=== PATIENT | male | born 1950 | race Caucasian/White ===

== ENCOUNTER 2018-04-15 06:48 | Inpatient (IN) | payer OTHER ==
[~2018-04-15] VITALS: Ht 172.7 cm; Wt 126.6 kg
[2018-04-15] MEDS ORDERED: Acetaminophen 650 MG SUPP RECTAL ONE ×2 (07:20→07:30)
[2018-04-15 07:22] VITALS: BP 115/102
[2018-04-15] MEDS ORDERED: Morphine Sulfate 4mg/ml Inj (IV USE ONLY) IVP ONE (07:30)
[2018-04-15 07:35] VITALS: BP 112/53
[2018-04-15 08:01] LABS: ANION GAP 9 mmol/L (5-15); BLOOD UREA NITROGEN 25 mg/dL (7-18); CALCIUM 8.7 MG/DL (8.5-10.1); CARBON DIOXIDE 26 MMOL/L (21-32); CHLORIDE 102 MMOL/L (98-107); CREATININE 1.4 MG/DL (0.55-1.30); POTASSIUM 5.3 MMOL/L (3.5-5.1); SODIUM 137 MMOL/L (136-145)
[2018-04-15 08:12] LABS: ALANINE AMINOTRANSFERASE 19 U/L (12-78); ALBUMIN 3.1 G/DL (3.4-5.0); ALBUMIN/GLOBULIN RATIO 0.6 (1.0-2.7); ALKALINE PHOSPHATASE 102 U/L (46-116); ASPARTATE AMINO TRANSFERASE 30 U/L (15-37); BILIRUBIN,TOTAL 0.9 MG/DL (0.2-1.0)
[2018-04-15 08:22] LABS: HEMATOCRIT 35.9 % (42.0-52.0); HEMOGLOBIN 11.4 G/DL (14.2-18.0); MEAN CORPUSCULAR VOLUME 93 FL (80-99); PLATELET COUNT 167 K/UL (150-450); RED BLOOD COUNT 3.87 M/UL (4.70-6.10); RED CELL DISTRIBUTION WIDTH 11.9 % (11.6-14.8); WHITE BLOOD COUNT 2.4 K/UL (4.8-10.8)
--- NOTE | 2018-04-15 08:23 | Diagnostic Imaging Report ---
Indication: Chest pain Technique: One view of the chest Comparison: none Findings: The heart is borderline enlarged. There is bilateral pulmonary venous congestion and possibly some airspace edema. There is obscuration left hemidiaphragm, may indicate pleural fluid and/or parenchymal consolidation of the left lung base Impression: Cardiomegaly Pulmonary venous congestion and airspace edema Left basilar pleural fluid and/or infiltrates also possible
[2018-04-15 08:34] LABS: INR 1.2 (0.9-1.1)
[2018-04-15 09:08] VITALS: BP 105/44
--- NOTE | 2018-04-15 09:30 | Emergency Room Report ---
History of Present Illness General Chief Complaint: Dyspnea/Respdistress Present Illness HPI This is a SNF patient brought in for sob, fever. Pt. cannot give any history. Unknown temp at facility. Paperwork: COPD, DNR comfort only All: PCN, Cephalexin Hx limited due to clinical condition Allergies: Coded Allergies: ADHESIVE TAPE (Verified Allergy, Unknown, 04/15/18) CEPHALEXIN (Verified Allergy, Unknown, 04/15/18) PENICILLINS (Verified Allergy, Unknown, 04/15/18) Uncoded Allergies: PENICILLIN (Allergy, Unknown, 04/15/18) PLAS (Allergy, Unknown, 04/15/18) Nursing Documentation-PMH Hx COPD: Yes Hx Diabetes: Yes Hx Gastrointestinal Problems: Yes - Bariatric Surgery History Of Psychiatric Problem: Yes - Major depressive Review of Systems All Other Systems: limited Physical Exam Vital Signs Date Time Temp Pulse Resp B/P (MAP) Pulse Ox O2 Delivery O2 Flow Rate FiO2 04/15/18 06:50 103 26 166/88 97 Non-Rebreather 15.0 04/15/18 07:30 101.9 Sp02 EP Interpretation: reviewed, normal General Appearance: alert, moderate distress, lethargic, obese Head: normocephalic, atraumatic Eyes: bilateral eye normal inspection, bilateral eye PERRL, bilateral eye EOMI ENT: normal ENT inspection, normal pharynx, no angioedema, moist mucus membranes Neck: normal inspection, full range of motion, supple, no meningismus, no bony tend Respiratory: no wheezing, decreased breath sounds, crackles, rhonchi Cardiovascular #1: normal inspection, regular rate, rhythm, no edema Gastrointestinal: normal inspection, normal bowel sounds, non tender, soft, no mass, non-distended, overweight Genitourinary: other - diaper Musculoskeletal: normal range of motion, other - wound right lower leg; chronic venous stasis changes bilaterally Neurologic: other - awake, looks around occasionally, not responding to our questions or instructions Psychiatric: other - can't evaluate Suicide Risk Assessment: Suicidal Ideation: No Had intent to initiate attempt: No Pt's plan for suicide attempt: No Has means to complete attempt: No Reflexes: 2+ bicep (R), 2+ bicep (L), 2+ knee (R), 2+ knee (L) Skin: normal inspection, normal color, no rash, warm/dry, other - hot temp 103 Medical Decision Making Diagnostic Impression: Primary Impression: Pneumonia Additional Impression: SIRS (systemic inflammatory response syndrome) ER Course this patient has rhonchi, sounds wet, +resp distress, fever. clinically c/w pneumonia and sepsis. paperwork comfort only no iv fluids, no iv antibx. because he appeared uncomfortable BIPAP ordered which helped symptoms i decided to order IV Levaquin b/c patient properly should not be in ED but was sent here and therefore implies wanting more care. family did not call back. Chest X-Ray Diagnostic Results Chest X-Ray Diagnostic Results : Chest X-Ray Ordered: Yes # of Views/Limited/Complete: 1 View Indication: Shortness of Breath EP Interpretation: Yes Impression: Other - pulm congestion, possibly LLL infiltrate, Last Vital Signs Date Time Temp Pulse Resp B/P (MAP) Pulse Ox O2 Delivery O2 Flow Rate FiO2 04/15/18 07:35 86 31 Bi-pap 15.0 04/15/18 07:35 101.9 112/53 97 101.9 Disposition: ADMITTED INPATIENT Condition: Critical Referrals: NON PHYSICIAN (PCP) Asa Patel M.D. Apr 15, 2018 09:30
[2018-04-15 11:30] VITALS: BP 118/50
--- NOTE | 2018-04-15 15:48 | Cardiology Report ---
APPROVED REPORT EKG Measurement Heart [id number] PA [id number] [id number] Sinus tachycardia with 1st degree AV block Left anterior fascicular block Septal infarct, age undetermined Abnormal ECG
[2018-04-15 16:00] VITALS: BP 140/56
[2018-04-15] MEDS ORDERED: Lactulose 20gm/30ml UDC ORAL PRN (16:00)
[2018-04-15] MEDS ORDERED: HYDROcodone/Acetamin 10/325 tab ORAL PRN (16:00)
--- NOTE | 2018-04-15 16:53 | Infectious Diseases Prog Note ---
Assessment/Plan Assessment/Plan Full consult dictated: A) 1) pna, ? cap, ? aspiration pna/HCAP 2) sepsis, fevers, leukopenia 3) pmh noted P) 1) aztreonam, levofloxacin, vancomycin 2) check cultures, labs, chest x-ray, ua, serology 3) d/w Dr. Garcia 4) thank you Subjective Allergies: Coded Allergies: ADHESIVE TAPE (Verified Allergy, Unknown, 04/15/18) CEPHALEXIN (Verified Allergy, Unknown, 04/15/18) PENICILLINS (Verified Allergy, Unknown, 04/15/18) Uncoded Allergies: PENICILLIN (Allergy, Unknown, 04/15/18) PLAS (Allergy, Unknown, 04/15/18) Objective Vital Signs Last 24 Hour Vital Signs Date Time Temp Pulse Resp B/P (MAP) Pulse Ox O2 Delivery O2 Flow Rate FiO2 04/15/18 16:25 Nasal Cannula 2.0 04/15/18 14:46 98.1 80 19 124/61 96 Nasal Cannula 2.0 60 98.3 04/15/18 11:30 98.3 81 26 118/50 95 Nasal Cannula 2.0 98.3 04/15/18 11:15 98.9 04/15/18 11:15 98.9 04/15/18 09:08 98.9 88 21 105/44 100 Bi-pap 98.9 04/15/18 09:00 89 26 97 Facial 60 04/15/18 07:35 86 31 Bi-pap 15.0 04/15/18 07:35 101.9 86 31 112/53 97 Bi-pap 15.0 101.9 04/15/18 07:30 101.9 04/15/18 07:22 91 32 115/102 97 Bi-pap 04/15/18 07:20 103 26 Non-Rebreather 15.0 04/15/18 07:00 89 32 Bi-pap 04/15/18 07:00 89 32 98 Facial 60 04/15/18 06:50 103 26 166/88 97 Non-Rebreather 15.0 Height (Feet): 5 Height (Inches): 8.00 Weight (Pounds): 285 Laboratory Tests Test 04/15/18 07:12 04/15/18 08:13 04/15/18 09:55 Sodium Level 137 MMOL/L (136-145) Potassium Level 5.3 MMOL/L (3.5-5.1) H Chloride Level 102 MMOL/L (98-107) Carbon Dioxide Level 26 MMOL/L (21-32) Anion Gap 9 mmol/L (5-15) Blood Urea Nitrogen 25 mg/dL (7-18) H Creatinine 1.4 MG/DL (0.55-1.30) H Estimat Glomerular Filtration Rate 50.9 mL/min (>60) Glucose Level 244 MG/DL (74-106) H Lactic Acid Level 2.20 mmol/L (0.4-2.0) H 1.50 mmol/L (0.66-2.22) Calcium Level 8.7 MG/DL (8.5-10.1) Total Bilirubin 0.9 MG/DL (0.2-1.0) Aspartate Amino Transf (AST/SGOT) 30 U/L (15-37) Alanine Aminotransferase (ALT/SGPT) 19 U/L (12-78) Alkaline Phosphatase 102 U/L (46-116) Pro-B-Type Natriuretic Peptide 965 pg/mL (0-125) H Total Protein 8.3 G/DL (6.4-8.2) H Albumin 3.1 G/DL (3.4-5.0) L Globulin 5.2 g/dL Albumin/Globulin Ratio 0.6 (1.0-2.7) L White Blood Count 2.4 K/UL (4.8-10.8) L Red Blood Count 3.87 M/UL (4.70-6.10) L Hemoglobin 11.4 G/DL (14.2-18.0) L Hematocrit 35.9 % (42.0-52.0) L Mean Corpuscular Volume 93 FL (80-99) Mean Corpuscular Hemoglobin 29.6 PG (27.0-31.0) Mean Corpuscular Hemoglobin Concent 31.9 G/DL (32.0-36.0) L Red Cell Distribution Width 11.9 % (11.6-14.8) Platelet Count 167 K/UL (150-450) Mean Platelet Volume 8.1 FL (6.5-10.1) Neutrophils (%) (Auto) % (45.0-75.0) Lymphocytes (%) (Auto) % (20.0-45.0) Monocytes (%) (Auto) % (1.0-10.0) Eosinophils (%) (Auto) % (0.0-3.0) Basophils (%) (Auto) % (0.0-2.0) Differential Total Cells Counted 100 Neutrophils % (Manual) 66 % (45-75) Lymphocytes % (Manual) 9 % (20-45) L Monocytes % (Manual) 7 % (1-10) Eosinophils % (Manual) 0 % (0-3) Basophils % (Manual) 1 % (0-2) Metamyelocytes % 2 % (0-0) H Band Neutrophils 15 % (0-8) H Platelet Estimate Adequate Platelet Morphology Normal Red Blood Cell Morphology Normal Prothrombin Time 12.1 SEC (9.30-11.50) H Prothromb Time International Ratio 1.2 (0.9-1.1) H Current Medications Medications (Trade) Dose Ordered Sig/Tessa Route PRN Reason Start Time Stop Time Status Last Admin Dose Admin Acetaminophen/ Hydrocodone Bitart ([place] 10/325) 1 tab Q8H PRN ORAL For Pain 04/15/18 16:00 04/22/18 15:59 Albuterol/ Ipratropium (Albuterol/ Ipratropium) 3 ml Q6HRT HHN 04/15/18 19:00 04/20/18 18:59 Aspirin (ASA) 81 mg DAILY NG 04/16/18 09:00 05/16/18 08:59 Citalopram Hydrobromide (celeXA) 40 mg DAILY ORAL 04/16/18 09:00 05/16/18 08:59 Clopidogrel Bisulfate (Plavix) 75 mg DAILY ORAL 04/16/18 09:00 05/16/18 08:59 Cyanocobalamin (Vitamin B-12) 2,500 mcg DAILY ORAL 04/16/18 09:00 05/16/18 08:59 Dextrose (Dextrose 50%) 25 ml STAT PRN IV Hypoglycemia 04/15/18 16:15 05/15/18 16:14 Dextrose (Dextrose 50%) 50 ml STAT PRN IV Hypoglycemia 04/15/18 16:15 05/15/18 16:14 Furosemide (Lasix) 20 mg EVERY 12 HOURS IV 04/15/18 21:00 05/15/18 20:59 Insulin Aspart (NovoLOG) BEFORE MEALS AND HS SUBQ 04/15/18 16:30 05/15/18 16:29 Lactulose (Cephulac) 30 gm Q6H PRN ORAL Constipation 04/15/18 16:00 05/15/18 15:59 Oxybutynin Chloride (Ditropan) 10 mg DAILY ORAL 04/16/18 09:00 05/16/18 08:59 Annamarie Wells MD Apr 15, 2018 16:53
[2018-04-15] MEDS: NovoLOG Insulin Flexpen SUBQ SCH ×2 (17:34→22:09)
[2018-04-15] MEDS: Albuterol/Ipratropium 3ml neb HHN SCH (19:30)
[2018-04-15 20:00] VITALS: BP 144/79
[2018-04-15 21:30] LABS: APPEARANCE,URINE CLEAR; BILIRUBIN, URINE NEGATIVE (NEGATIVE); GLUCOSE, URINE (UA) 2+ (NEGATIVE); KETONES,URINE 1+ (NEGATIVE); LEUKOCYTE ESTERASE ,URINE 1+ (NEGATIVE); NITRITE,URINE NEGATIVE (NEGATIVE); PH,URINE 5 (4.5-8.0); PROTEIN,URINE 3+ (NEGATIVE); UROBILINOGEN,URINE NORMAL MG/DL (0.0-1.0)
[2018-04-15 21:33] LABS: COLOR,URINE YELLOW
[2018-04-15] MEDS: Atorvastatin 20mg tab ORAL SCH (22:06)
[2018-04-15] MEDS: Aztreonam Inj 1 GM in D5W 55 ML IVPB SCH (22:06)
[2018-04-15] MEDS: metroNIDAZOLE 500mg tab ORAL SCH (22:07)
[2018-04-15] MEDS: Vancomycin 1gm/D5W 275ml IVPB SCH ×2 (22:48)
[2018-04-16] VITALS: BP 122/49
--- NOTE | 2018-04-16 | History and Physical Report ---
DATE OF ADMISSION: 04/15/2018 CHIEF COMPLAINT: Short of breath. HISTORY OF PRESENT ILLNESS: The patient is a senior living resident who came to the hospital by paramedics because of shortness of breath. He states that he was short of breath all night and has been coughing. He has a history of COPD and had high fever and pneumonia was identified in the emergency department. He was in respiratory distress when he arrived and was on BiPAP for a time but improved and is now on nasal oxygen. He still feels short of breath however but is not in distress. PAST MEDICAL HISTORY: COPD, past cigarette smoker, multiple sclerosis, bariatric surgery, depression, multiple falls, diabetes, morbid obesity. ALLERGIES: Adhesive tape, penicillin, and cephalexin. SOCIAL HISTORY: He was living at home with his but fell and was hospitalized last month with multiple contusions and lacerations. She was discharged to the nursing facility where he is residing when he came here. He no longer smokes. He does not drink excessively or use drugs. REVIEW OF SYSTEMS: Otherwise unremarkable. Despite his MS, he is able to get up and around with difficulty. He is able to eat a normal diet. He is unaware of any heart condition. PHYSICAL EXAMINATION: GENERAL: The patient is morbidly obese. VITAL SIGNS: Temperature was 101.9, respiration rate as high as 32 but now down to 19 and pulse is high as 103, now down to 80. Blood pressure is normal. SKIN: Hot and dry. HEENT: Head is normocephalic. NECK: No jugular vein distention. CHEST: Rales on the left base and rhonchi bilateral. CARDIAC: Rhythm is regular. ABDOMEN: Obese, soft, and nontender. Surgical scar is healed. No liver or spleen enlargement. EXTREMITIES: Chronic stasis changes. No clubbing or cyanosis. A 1+ edema noted. LABORATORY AND DIAGNOSTIC DATA: White count is low at 2400, hemoglobin 11.4, lymphopenia and marked left shift with bands and metamyelocytes. Chemistry shows elevated lactic acid which improved to normal. Potassium slightly high at 5.3, BUN 25, creatinine 1.4, blood sugar 244. Natriuretic peptide 965. Total protein 8.3. Albumin 3.1. Urinalysis is pending. IMPRESSIONS: 1. Acute respiratory failure. 2. Pneumonia with sepsis. 3. COPD. 4. Multiple sclerosis. 5. DNR status. 6. Diabetes. 7. Morbid obesity. 8. Marked leukopenia. 9. Chronic kidney disease stage 3. 10. Hyperproteinemia. 11. Probable diastolic heart failure. PLAN: 1. The patient will be given antibiotics. 2. Infectious Disease insurance healthcare consultant has been called in view of his multiple allergies and the medical facility acquired infection. 3. We will add Lasix and get an echocardiogram. 4. Breathing treatments were ordered. 5. We will get protein electrophoresis. Tyshawn Garcia M.D. DR: Laura JOB#: [id number] CC: Annamarie Wells M.D.; Fax#: [phone] TYSHAWN GARCIA M.D. ; FAX#: [phone]
--- NOTE | 2018-04-16 00:30 | Consultation ---
DATE OF CONSULTATION: 04/15/2018 INFECTIOUS DISEASE CONSULTATION CONSULTING PHYSICIAN: Annamarie Wells M.D. ATTENDING PHYSICIAN: Marcus Garcia M.D. REFERRING PHYSICIAN: Marcus Garcia M.D. REASON FOR CONSULTATION: Possible sepsis, fevers, leukopenia, and pneumonia. CHIEF COMPLAINT: The patient's chief complaint coming into the hospital is pneumonia. HISTORY OF PRESENT ILLNESS: This is a 67-year-old male, who comes into [facility] with what looks like congestion and shortness of breath. The patient has history of multiple medical problems. He also came in with fevers of 101.9 in addition to shortness of breath. In discussion with the patient, nursing staff, he does choke. The patient on chest x-ray has what looks like pneumonia on the left. He also has acute kidney injury. The patient is leukopenic and certainly could be septic. Infectious Diseases consultation is requested. The patient has allergies to cephalosporins and penicillin. The patient was placed on vancomycin and aztreonam for MRSA and Gram-negative coverage and in addition, he was placed on Levaquin and Flagyl because of the possible atypical and aspiration pneumonia. The patient's cultures and serology have been ordered. Case was discussed with Dr. Garcia. Case was discussed the patient. MAR was noted. Orders were noted. Notes were reviewed. REVIEW OF SYSTEMS: The patient's chief complaint is he came in with fevers, cough, congestion, and shortness of breath. He came in with fever and chills.HEAD AND NECK: No head pain, neck pain. No neck stiffness. CARDIAC: No chest pain. GASTROINTESTINAL: No nausea, vomiting, or diarrhea. GENITOURINARY: No dysuria or frequency. No Michael. PULMONARY: Mild cough and congestion. SKIN: No rash or itching. EXTREMITIES: No extremity pain. NEUROLOGIC: No seizures. Generalized fatigue and weakness. He does say he chokes. No dysphagia or thrush. PAST MEDICAL HISTORY: The patient's past medical history includes history of chronic obstructive pulmonary disease, diabetes, history of depression, bariatric surgery, and depression. Other past medical history includes history of leg pain, back pain, weakness, difficulty walking, polyneuropathy, essential hypertension, type 2 diabetes, history of falls. Discussing with Dr. Garcia and nursing staff, he also has history of multiple sclerosis even I do not see this documented in the records. He also has history overactive bladder. He has history of osteoarthritis. He also has history of chronic kidney disease, rib fracture, anemia, thrombocytopenia, sleep apnea, and obesity. Again, per the records, in discussing with Dr. Garcia and nursing staff, the patient has possible history of multiple sclerosis. ER records, ER physician, it did show he has history of multiple sclerosis. ALLERGIES: Include adhesive tape, cephalexin, penicillin, and plastics. MEDICATIONS: Upon reviewing the MAR, he is on the following medications. He is on aspirin. He is on Celexa. He is on Plavix, vitamin B, oxybutynin, furosemide, albuterol, insulin, hydrocodone, lactulose, Levaquin, acetaminophen, and morphine. Antibiotic pabon, we are going to put him on aztreonam, vancomycin, Levaquin, and Flagyl. Outside medications noted and reconciliated. SOCIAL HISTORY: Negative for smoking, alcohol, or drug abuse. FAMILY HISTORY: Noncontributory. Negative for exposure to tuberculosis or cancer. PHYSICAL EXAMINATION: VITAL SIGNS: T-max 101.9, currently temperature is 98.1, pulse rate 80, respiratory rate 19, blood pressure 124/61, and saturation 96%. Respiratory rate has been as high as 32 and heart rate has been as high as 103. GENERAL: Alert and responsive, in no acute distress. HEAD AND NECK: Mild congestion noted on exam. Oral exam, no thrush. Eye exam, no icterus. Neck is supple. No JVD. Normocephalic. No facial droop. No neck stiffness. Neck is supple. No icterus or thrush. HEART: Regular. No obvious gallop or murmur ABDOMEN: Soft. Positive bowel sounds. Nontender. LUNGS: Bilateral rhonchi and rales, left greater than right. SKIN: No rash. MUSCULOSKELETAL: No effusion. Legs are without cellulitis. PERIPHERAL VASCULAR: No cyanosis or gangrene. GENITOURINARY: No Michael. No CVA tenderness. LINES: Line sites without phlebitis. NEUROLOGIC: Generalized weakness, responsive. LABORATORY AND DIAGNOSTIC DATA: Laboratory data as follows. White count 2.4, hemoglobin 11.4, and platelet count 167. Creatinine 1.4. LFTs noted. Cultures are pending. Chest x-ray was noted and reviewed and showed a left-sided infiltrate versus fluid is noted and reviewed. Cultures are pending as discussed. ASSESSMENT AND PLAN: 1. This is the patient who has likely sepsis with fevers of 101.9, tachycardia, tachypnea, leukopenia, and fevers. Most likely, source of the sepsis is pneumonia. Certainly could have community-acquired pneumonia, but because of his choking episodes and he resides in [facility], must consider healthcare-acquired pneumonia and aspiration pneumonia. At this time, we will place the patient on broad-spectrum antibiotics including vancomycin, cefepime, Flagyl, and also Levaquin. The patient is septic with also leukopenia in addition to pneumonia. Continue antibiotics of vancomycin, Levaquin, Flagyl, and Levaquin and check serology for Legionella, mycoplasma. Check sputum culture. Check blood cultures. Check UA and C and S and check laboratories. The patient is allergic to penicillin and cephalexin, which limits our antibiotic choices. Case was discussed with Dr. Garcia. 2. Per the records, history of multiple sclerosis. 3. The patient a DNR. 4. The patient has history of multiple contusions and falls. 5. Diabetes. 6. Hypertension. 7. Peripheral neuropathy. 8. History of diabetic foot ulcer. 9. Skin care protocol. 10. Chronic obstructive pulmonary disease. 11. History of anemia and thrombocytopenia. 12. Leukopenia. 13. History of fractures. 14. Sleep apnea. 15. Obesity. 16. Osteoarthritis. 17. Chronic back pain. 18. Hypertension, diabetes. Treatment per primary. 19. Chronic kidney disease. 20. Past medical history as noted. 21. Allergies to adhesive tape, cephalexin, penicillin, and plastics. 22. Social history is negative. 23. Family history is noncontributory. 24. MAR was noted. 25. Case was discussed with RN. 26. Continue treatment per primary consultants. 27. The patient has history of bariatric surgery and also major depression. Annamarie Wells M.D. DR: CORNELL JOB#: [id number] CC:
[2018-04-16] MEDS: Albuterol/Ipratropium 3ml neb HHN SCH ×4 (01:16→20:10)
[2018-04-16 04:00] VITALS: BP 129/52
[2018-04-16] MEDS: metroNIDAZOLE 500mg tab ORAL SCH ×3 (05:42→22:19)
[2018-04-16] MEDS: Aztreonam Inj 1 GM in D5W 55 ML IVPB SCH ×3 (05:43→22:19)
[2018-04-16] MEDS: metFORMIN 500mg tab ORAL SCH ×3 (06:28→16:30)
[2018-04-16] MEDS: NovoLOG Insulin Flexpen SUBQ SCH ×4 (06:29→20:39)
--- NOTE | 2018-04-16 06:45 | Consultation ---
DATE OF CONSULTATION: 04/15/2018 ADDENDUM: The patient also had elevated lactic acid level which could again be suggestive of the patient being septic. Continue broad-spectrum antibiotics including vancomycin, Levaquin, and Flagyl. Levaquin to cover pneumonia and sepsis. Check cultures. Multiple orders were entered and again case was discussed with Dr. Garcia. Annamarie Wells M.D. DR: Alirio JOB#: [id number] CC:
[2018-04-16] MEDS ORDERED: CELEXA20 MG ORAL (07:43)
[2018-04-16] MEDS ORDERED: OXYCODON-ACETA1 EAC2 ORAL (07:43)
[2018-04-16] MEDS ORDERED: DUONEB 0.5-3(2.53 ML HHN (07:43)
--- NOTE | 2018-04-16 07:45 | Pulmonology Progress Note ---
Assessment/Plan Assessment/Plan does not want to continue treatment signed up with hospice dc to snf comfort care only understands and accepts terminal prognosis Subjective Respiratory: Reports: productive cough, shortness of breath Allergies: Coded Allergies: ADHESIVE TAPE (Verified Allergy, Unknown, 04/15/18) CEPHALEXIN (Verified Allergy, Unknown, 04/15/18) PENICILLINS (Verified Allergy, Unknown, 04/15/18) Uncoded Allergies: PENICILLIN (Allergy, Unknown, 04/15/18) PLAS (Allergy, Unknown, 04/15/18) Objective Last 24 Hour Vital Signs Date Time Temp Pulse Resp B/P (MAP) Pulse Ox O2 Delivery O2 Flow Rate FiO2 04/16/18 07:40 73 20 98 Nasal Cannula 2.0 28 04/16/18 07:19 Nasal Cannula 2.0 28 04/16/18 07:19 69 20 97 Nasal Cannula 2.0 28 04/16/18 07:18 97 Nasal Cannula 2.0 28 04/16/18 04:00 98.2 78 20 129/52 (77) 94 98.2 04/16/18 01:26 81 18 98 Nasal Cannula 2.0 28 04/16/18 01:16 77 18 97 Nasal Cannula 2.0 28 04/16/18 00:00 100.4 83 20 122/49 (73) 92 100.4 04/15/18 23:07 100.4 04/15/18 22:08 102.0 04/15/18 21:00 Nasal Cannula 2.0 04/15/18 20:00 102.0 87 20 144/79 (100) 93 102.0 04/15/18 19:40 83 20 96 Nasal Cannula 2.0 28 04/15/18 19:30 81 20 93 Nasal Cannula 2.0 28 04/15/18 19:30 93 Nasal Cannula 2.0 28 04/15/18 19:30 Nasal Cannula 2.0 28 04/15/18 18:05 101.7 04/15/18 16:25 Nasal Cannula 2.0 04/15/18 16:00 97.9 83 21 140/56 (84) 97 97.9 04/15/18 14:46 98.1 80 19 124/61 96 Nasal Cannula 2.0 60 98.3 04/15/18 11:30 98.3 81 26 118/50 95 Nasal Cannula 2.0 98.3 04/15/18 11:15 98.9 04/15/18 11:15 98.9 04/15/18 09:08 98.9 88 21 105/44 100 Bi-pap 98.9 04/15/18 09:00 89 26 97 Facial 60 Intake and Output 04/15/18 04/16/18 19:00 07:00 Intake Total 390 ml 672.416 ml Balance 390 ml 672.416 ml Intake Oral 240 ml 250 ml IV Total 150 ml 422.416 ml # Voids 1 2 General Appearance: no acute distress Laboratory Tests 04/15/18 08:13: White Blood Count 2.4L, Red Blood Count 3.87L, Hemoglobin 11.4L, Hematocrit 35.9L, Mean Corpuscular Volume 93, Mean Corpuscular Hemoglobin 29.6, Mean Corpuscular Hemoglobin Concent 31.9L, Red Cell Distribution Width 11.9, Platelet Count 167, Mean Platelet Volume 8.1, Neutrophils (%) (Auto) , Lymphocytes (%) (Auto) , Monocytes (%) (Auto) , Eosinophils (%) (Auto) , Basophils (%) (Auto) , Differential Total Cells Counted 100, Neutrophils % ( Manual) 66, Lymphocytes % (Manual) 9L, Monocytes % (Manual) 7, Eosinophils % ( Manual) 0, Basophils % (Manual) 1, Metamyelocytes % 2H, Band Neutrophils 15H, Platelet Estimate Adequate, Platelet Morphology Normal, Red Blood Cell Morphology Normal, Prothrombin Time 12.1H, Prothromb Time International Ratio 1.2H, Total Protein (PEP) [Pending], Albumin (PEP) [Pending], Globulin (PEP) [ Pending], Albumin/Globulin Ratio [Pending], [id number] [Pending], Alpha-2 -Globulins [Pending], Beta Globulins [Pending], Beta Gamma Globulin [Pending], PEP Abnormal Protein Bands [Pending], Protein Electrophoresis Interpret [Pending ], Mycoplasma pneumoniae IgG Antibody [Pending], Mycoplasma pneumoniae IgM Ab Titer [Pending] 04/15/18 09:55: Lactic Acid Level 1.50 04/15/18 20:40: Urine Color Yellow, Urine Appearance Clear, Urine pH 5, Urine Specific [place] 1.020, Urine Protein 3+H, Urine Glucose (UA) 2+H, Urine Ketones 1+H, Urine Occult Blood 1+H, Urine Nitrite Negative, Urine Bilirubin Negative, Urine Urobilinogen Normal, Urine Leukocyte Esterase 1+H, Urine RBC 0-2H, Urine WBC 2-4 , Urine Squamous Epithelial Cells None, Urine Amorphous Sediment FewH, Urine Bacteria Few, Urine Legionella Antigen [Pending] Current Medications Medications (Trade) Dose Ordered Sig/Tessa Route PRN Reason Start Time Stop Time Status Last Admin Dose Admin Acetaminophen (Tylenol) 650 mg Q4H PRN ORAL Mild Pain/Temp > 100.5 04/15/18 18:00 05/15/18 17:59 04/15/18 22:08 Acetaminophen/ Hydrocodone Bitart ([place] 10/325) 1 tab Q8H PRN ORAL PAIN 4-10 04/15/18 18:00 04/22/18 15:59 Albuterol/ Ipratropium (Albuterol/ Ipratropium) 3 ml Q6HRT HHN 04/15/18 19:00 04/20/18 18:59 04/16/18 07:18 Aspirin (ASA) 81 mg DAILY NG 04/16/18 09:00 05/16/18 08:59 Atorvastatin Calcium (Lipitor) 40 mg QHS ORAL 04/15/18 21:00 05/15/18 20:59 04/15/18 22:06 Aztreonam 1 gm/ Dextrose 55 ml @ 110 mls/hr Q8HR IVPB 04/15/18 22:00 04/22/18 21:59 04/16/18 05:43 Citalopram Hydrobromide (celeXA) 40 mg DAILY ORAL 04/16/18 09:00 05/16/18 08:59 Clopidogrel Bisulfate (Plavix) 75 mg DAILY ORAL 04/16/18 09:00 05/16/18 08:59 Cyanocobalamin (Vitamin B-12) 2,500 mcg DAILY ORAL 04/16/18 09:00 05/16/18 08:59 Dextrose (Dextrose 50%) 25 ml STAT PRN IV Hypoglycemia 04/15/18 16:15 05/15/18 16:14 Dextrose (Dextrose 50%) 50 ml STAT PRN IV Hypoglycemia 04/15/18 16:15 05/15/18 16:14 Furosemide (Lasix) 20 mg EVERY 12 HOURS IV 04/15/18 21:00 05/15/18 20:59 04/15/18 22:07 Insulin Aspart (NovoLOG) BEFORE MEALS AND HS SUBQ 04/15/18 16:30 05/15/18 16:29 04/16/18 06:29 Lactulose (Cephulac) 30 gm Q6H PRN ORAL Constipation 04/15/18 16:00 05/15/18 15:59 Levofloxacin (Levaquin) 500 mg Q24H ORAL 04/16/18 17:00 04/23/18 16:59 Losartan Potassium (Cozaar) 25 mg DAILY ORAL 04/16/18 09:00 05/16/18 08:59 Metformin HCl (Glucophage) 500 mg TIAC ORAL 04/16/18 06:30 05/16/18 06:29 04/16/18 06:28 Metronidazole (Flagyl) 500 mg EVERY 8 HOURS ORAL 04/15/18 22:00 04/22/18 21:59 04/16/18 05:42 Oxybutynin Chloride (Ditropan) 10 mg DAILY ORAL 04/16/18 09:00 05/16/18 08:59 Vancomycin HCl (Vanco rx to dose) 1 ea DAILY PRN MISC Per rx protocol 04/15/18 17:00 05/15/18 16:59 Vancomycin HCl 1 gm/Dextrose 275 ml @ 183.708 mls/hr Q12H IVPB 04/15/18 21:00 04/20/18 20:59 04/15/18 22:48 Marcus Garcia MD Apr 16, 2018 07:45
[2018-04-16 07:57] LABS: HEMATOCRIT 32.3 % (42.0-52.0); HEMOGLOBIN 10.6 G/DL (14.2-18.0); MEAN CORPUSCULAR VOLUME 92 FL (80-99); PLATELET COUNT 141 K/UL (150-450); RED BLOOD COUNT 3.51 M/UL (4.70-6.10); RED CELL DISTRIBUTION WIDTH 11.8 % (11.6-14.8); WHITE BLOOD COUNT 7.6 K/UL (4.8-10.8)
[2018-04-16 08:00] VITALS: BP 151/69
[2018-04-16 08:35] LABS: ALANINE AMINOTRANSFERASE 15 U/L (12-78); ALBUMIN 2.6 G/DL (3.4-5.0); ALBUMIN/GLOBULIN RATIO 0.5 (1.0-2.7); ALKALINE PHOSPHATASE 72 U/L (46-116); ANION GAP 10 mmol/L (5-15); ASPARTATE AMINO TRANSFERASE 15 U/L (15-37); BILIRUBIN,TOTAL 0.7 MG/DL (0.2-1.0); BLOOD UREA NITROGEN 39 mg/dL (7-18); CALCIUM 8.8 MG/DL (8.5-10.1); CARBON DIOXIDE 27 MMOL/L (21-32); CHLORIDE 99 MMOL/L (98-107); CHOLESTEROL 72 MG/DL (< 200); CREATININE 1.8 MG/DL (0.55-1.30); HDL CHOLESTEROL 40 MG/DL (40-60); POTASSIUM 4.2 MMOL/L (3.5-5.1); SODIUM 135 MMOL/L (136-145); TRIGLYCERIDES 50 MG/DL (30-150)
[2018-04-16] MEDS: Citalopram Hydrobromide 10mg Tab ORAL SCH (09:01)
[2018-04-16] MEDS: Losartan 25mg tab ORAL SCH (09:01)
[2018-04-16] MEDS: Vancomycin 1gm/D5W 275ml IVPB SCH ×4 (09:01→20:39)
[2018-04-16] MEDS: Aspirin Baby 81mg NG SCH (09:02)
[2018-04-16] MEDS: Vitamin B-12 500mcg tab ORAL SCH (09:02)
[2018-04-16] MEDS: Oxybutynin 5mg tab ORAL SCH (09:02)
[2018-04-16] MEDS: HYDROcodone/Acetamin 10/325 tab ORAL PRN ×2 (09:12→17:06)
--- NOTE | 2018-04-16 10:09 | Diagnostic Imaging Report ---
Indication: Shortness of breath Technique: One view of the chest Comparison: 04/15/2018 Findings: There is diffuse bilateral interstitial congestion airspace edema which appears minimally improved. Left-sided pleural fluid appears unchanged. The heart remains enlarged. Impression: Minimally improved airspace edema and interstitial congestion, over one day Stable left pleural effusion
[2018-04-16 12:00] VITALS: BP 140/61
[2018-04-16 16:00] VITALS: BP 121/57
[2018-04-16] MEDS: Levofloxacin 500mg tab ORAL SCH (16:47)
[2018-04-16 20:00] VITALS: BP 142/59
[2018-04-16] MEDS: Atorvastatin 20mg tab ORAL SCH (20:39)
[2018-04-17] VITALS: BP 140/65
[2018-04-17] MEDS: HYDROcodone/Acetamin 10/325 tab ORAL PRN ×2 (01:13→11:47)
[2018-04-17] MEDS: Albuterol/Ipratropium 3ml neb HHN SCH ×4 (01:23→20:01)
[2018-04-17 04:00] VITALS: BP 138/62
[2018-04-17] MEDS: metroNIDAZOLE 500mg tab ORAL SCH ×3 (06:04→21:11)
[2018-04-17] MEDS: metFORMIN 500mg tab ORAL SCH ×3 (06:04→16:30)
[2018-04-17] MEDS: Aztreonam Inj 1 GM in D5W 55 ML IVPB SCH ×3 (06:04→21:08)
[2018-04-17] MEDS: NovoLOG Insulin Flexpen SUBQ SCH ×6 (06:11→21:11)
[2018-04-17 07:15] VITALS: BP 137/58
[2018-04-17 08:19] LABS: HEMATOCRIT 33.9 % (42.0-52.0); MEAN CORPUSCULAR VOLUME 92 FL (80-99); PLATELET COUNT 180 K/UL (150-450); RED CELL DISTRIBUTION WIDTH 11.9 % (11.6-14.8); WHITE BLOOD COUNT 9.2 K/UL (4.8-10.8)
[2018-04-17] MEDS: Vitamin B-12 500mcg tab ORAL SCH (08:45)
[2018-04-17] MEDS: Losartan 25mg tab ORAL SCH (08:45)
[2018-04-17] MEDS: Aspirin Baby 81mg NG SCH (08:45)
[2018-04-17] MEDS: Citalopram Hydrobromide 10mg Tab ORAL SCH (08:45)
[2018-04-17] MEDS: Oxybutynin 5mg tab ORAL SCH (08:45)
--- NOTE | 2018-04-17 08:48 | Pulmonology Progress Note ---
Assessment/Plan Assessment/Plan 1. Acute respiratory failure. 2. Pneumonia with sepsis. 3. COPD. 4. Multiple sclerosis. 5. DNR status. 6. Diabetes. 7. Morbid obesity. 8. Marked leukopenia. 9. Chronic kidney disease stage 3. 10. Hyperproteinemia. 11. Probable diastolic heart failure. now wants to continue treatment not on hospice "I am too young to " cont abx Zofran for nausea, poor PO adjust insulin for high BS Subjective Respiratory: Reports: productive cough Gastrointestinal/Abdominal: Reports: nausea, other - poor PO Allergies: Coded Allergies: ADHESIVE TAPE (Verified Allergy, Unknown, 04/15/18) CEPHALEXIN (Verified Allergy, Unknown, 04/15/18) PENICILLINS (Verified Allergy, Unknown, 04/15/18) Uncoded Allergies: PENICILLIN (Allergy, Unknown, 04/15/18) PLAS (Allergy, Unknown, 04/15/18) Objective Last 24 Hour Vital Signs Date Time Temp Pulse Resp B/P (MAP) Pulse Ox O2 Delivery O2 Flow Rate FiO2 04/17/18 08:45 137/58 04/17/18 07:54 62 18 99 Nasal Cannula 2.0 28 04/17/18 07:44 96 Nasal Cannula 2.0 28 04/17/18 07:44 59 16 96 Nasal Cannula 2.0 28 04/17/18 07:44 Nasal Cannula 2.0 04/17/18 07:27 98.1 98.1 04/17/18 07:15 62 20 137/58 (84) 93 04/17/18 04:00 98.6 71 20 138/62 (87) 94 98.6 04/17/18 01:32 60 18 98 Nasal Cannula 2.0 28 04/17/18 01:23 60 18 95 Nasal Cannula 2.0 28 04/17/18 00:55 98.6 04/17/18 00:00 100.5 65 19 140/65 (90) 93 100.5 04/16/18 23:56 100.5 04/16/18 21:30 76 24 95 Facial 28 04/16/18 21:00 Nasal Cannula 2.0 04/16/18 20:18 70 20 99 Nasal Cannula 2.0 28 04/16/18 20:08 95 Nasal Cannula 2.0 28 04/16/18 20:08 68 20 95 Nasal Cannula 2.0 28 04/16/18 20:08 Nasal Cannula 2.0 28 04/16/18 20:00 98.8 70 21 142/59 (86) 94 98.8 04/16/18 16:00 98.2 65 20 121/57 (78) 93 98.2 04/16/18 13:20 75 20 96 Nasal Cannula 2.0 28 04/16/18 13:09 72 20 96 Nasal Cannula 2.0 28 04/16/18 12:00 98.4 73 20 140/61 (87) 95 98.4 04/16/18 09:01 151/69 04/16/18 09:00 Nasal Cannula 2.0 Intake and Output 04/16/18 04/17/18 19:00 07:00 Intake Total 810.000 ml 585.000 ml Balance 810.000 ml 585.000 ml Intake Oral 480 ml 200 ml IV Total 330.000 ml 385.000 ml # Voids 4 3 Objective morbidly obese General Appearance: no acute distress Respiratory/Chest: crackles/rales, rhonchi Cardiovascular: normal rate Abdomen: soft, non tender Microbiology Date/Time Source Procedure Growth Status 04/15/18 18:00 Blood Blood Culture - Preliminary NO GROWTH AFTER 24 HOURS Resulted 04/15/18 17:45 Blood Blood Culture - Preliminary NO GROWTH AFTER 24 HOURS Resulted 04/15/18 23:00 Sputum Induced Gram Stain - Final Resulted 04/15/18 23:00 Sputum Induced Sputum Culture Pending Resulted 04/15/18 20:40 Urine,Clean Catch Urine Culture - Preliminary Mixed Gram Positive Organism Resulted 04/15/18 09:55 Rectum VRE Culture - Final NO VANCOMYCIN RESISTANT ENTEROCOCCUS ... Complete 04/15/18 09:55 Rectum - Final NO CARBAPENEM-RESISTANT ENTEROBACTERI... Complete Laboratory Tests 04/17/18 07:45: White Blood Count 9.2, Red Blood Count 3.70L, Hemoglobin 11.0L, Hematocrit 33.9L , Mean Corpuscular Volume 92, Mean Corpuscular Hemoglobin 29.8, Mean Corpuscular Hemoglobin Concent 32.5, Red Cell Distribution Width 11.9, Platelet Count 180, Mean Platelet Volume 9.0, Neutrophils (%) (Auto) , Lymphocytes (%) ( Auto) , Monocytes (%) (Auto) , Eosinophils (%) (Auto) , Basophils (%) (Auto) , Neutrophils % (Manual) [Pending], Lymphocytes % (Manual) [Pending], Platelet Estimate [Pending], Platelet Morphology [Pending], Sodium Level [Pending], Potassium Level [Pending], Chloride Level [Pending], Carbon Dioxide Level [ Pending], Blood Urea Nitrogen [Pending], Creatinine [Pending], Estimat Glomerular Filtration Rate [Pending], Glucose Level [Pending], Calcium Level [ Pending], Total Bilirubin [Pending], Aspartate Amino Transf (AST/SGOT) [Pending] , Alanine Aminotransferase (ALT/SGPT) [Pending], Alkaline Phosphatase [Pending] , Total Protein [Pending], Albumin [Pending], Globulin [Pending], Vancomycin Level Trough [Pending] Current Medications Medications (Trade) Dose Ordered Sig/Tessa Route PRN Reason Start Time Stop Time Status Last Admin Dose Admin Acetaminophen (Tylenol) 650 mg Q4H PRN ORAL Mild Pain/Temp > 100.5 04/15/18 18:00 05/15/18 17:59 04/16/18 23:56 Acetaminophen/ Hydrocodone Bitart ([place] 10/325) 1 tab Q8H PRN ORAL PAIN 4-10 04/15/18 18:00 04/22/18 15:59 04/17/18 01:13 Albuterol/ Ipratropium (Albuterol/ Ipratropium) 3 ml Q6HRT HHN 04/15/18 19:00 04/20/18 18:59 04/17/18 07:44 Aspirin (ASA) 81 mg DAILY NG 04/16/18 09:00 05/16/18 08:59 04/17/18 08:45 Atorvastatin Calcium (Lipitor) 40 mg QHS ORAL 04/15/18 21:00 05/15/18 20:59 04/16/18 20:39 Aztreonam 1 gm/ Dextrose 55 ml @ 110 mls/hr Q8HR IVPB 04/15/18 22:00 04/22/18 21:59 04/17/18 06:04 Citalopram Hydrobromide (celeXA) 40 mg DAILY ORAL 04/16/18 09:00 05/16/18 08:59 04/17/18 08:45 Clopidogrel Bisulfate (Plavix) 75 mg DAILY ORAL 04/16/18 09:00 05/16/18 08:59 04/17/18 08:45 Cyanocobalamin (Vitamin B-12) 2,500 mcg DAILY ORAL 04/16/18 09:00 05/16/18 08:59 04/17/18 08:45 Dextrose (Dextrose 50%) 25 ml STAT PRN IV Hypoglycemia 04/15/18 16:15 05/15/18 16:14 Dextrose (Dextrose 50%) 50 ml STAT PRN IV Hypoglycemia 04/15/18 16:15 05/15/18 16:14 Furosemide (Lasix) 20 mg EVERY 12 HOURS IV 04/15/18 21:00 05/15/18 20:59 04/17/18 08:46 Insulin Aspart (NovoLOG) BEFORE MEALS AND HS SUBQ 04/15/18 16:30 05/15/18 16:29 04/17/18 06:11 Lactulose (Cephulac) 30 gm Q6H PRN ORAL Constipation 04/15/18 16:00 05/15/18 15:59 Levofloxacin (Levaquin) 500 mg Q24H ORAL 04/16/18 17:00 04/23/18 16:59 04/16/18 16:47 Losartan Potassium (Cozaar) 25 mg DAILY ORAL 04/16/18 09:00 05/16/18 08:59 04/17/18 08:45 Metformin HCl (Glucophage) 500 mg TIAC ORAL 04/16/18 06:30 05/16/18 06:29 04/17/18 06:04 Metronidazole (Flagyl) 500 mg EVERY 8 HOURS ORAL 04/15/18 22:00 04/22/18 21:59 04/17/18 06:04 Oxybutynin Chloride (Ditropan) 10 mg DAILY ORAL 04/16/18 09:00 05/16/18 08:59 04/17/18 08:45 Vancomycin HCl (Vanco rx to dose) 1 ea DAILY PRN MISC Per rx protocol 04/15/18 17:00 05/15/18 16:59 Vancomycin HCl 1 gm/Dextrose 275 ml @ 183.708 mls/hr Q12H IVPB 04/15/18 21:00 04/20/18 20:59 04/16/18 20:39 Marcus Garcia MD Apr 17, 2018 08:48
[2018-04-17 09:39] LABS: ALANINE AMINOTRANSFERASE 18 U/L (12-78); ALBUMIN 2.5 G/DL (3.4-5.0); ALBUMIN/GLOBULIN RATIO 0.5 (1.0-2.7); ALKALINE PHOSPHATASE 74 U/L (46-116); ANION GAP 8 mmol/L (5-15); ASPARTATE AMINO TRANSFERASE 12 U/L (15-37); BILIRUBIN,TOTAL 0.6 MG/DL (0.2-1.0); BLOOD UREA NITROGEN 44 mg/dL (7-18); CALCIUM 8.7 MG/DL (8.5-10.1); CARBON DIOXIDE 27 MMOL/L (21-32); CHLORIDE 98 MMOL/L (98-107); CREATININE 1.5 MG/DL (0.55-1.30); POTASSIUM 3.7 MMOL/L (3.5-5.1); SODIUM 133 MMOL/L (136-145)
[2018-04-17] MEDS: Vancomycin 1gm/D5W 275ml IVPB SCH ×4 (10:38→21:07)
[2018-04-17 11:34] VITALS: BP 140/69
--- NOTE | 2018-04-17 12:46 | Cardiology Report ---
APPROVED REPORT EKG Measurement Heart [id number] Sinus rhythm with 1st degree AV block Left anterior fascicular block Abnormal ECG
[2018-04-17 16:00] VITALS: BP 117/47
[2018-04-17] MEDS: Levofloxacin 500mg tab ORAL SCH (17:19)
--- NOTE | 2018-04-17 17:21 | Infectious Diseases Prog Note ---
Assessment/Plan Assessment/Plan ASSESSMENT AND PLAN: 1. sepsis, pna, fevers, leukopenia, sirs, elevated lactic acid - aztreonam, vancomycin, flagyl, levofloxacin - f/u on labs, sputum culture and chest x-ray 2. Per the records, history of multiple sclerosis. 3. The patient is DNR. 4. The patient has history of multiple contusions and falls. 5. Diabetes. 6. Hypertension. 7. Peripheral neuropathy. 8. History of diabetic foot ulcer. 9. Skin care protocol. 10. Chronic obstructive pulmonary disease. 11. History of anemia and thrombocytopenia. 12. Leukopenia. 13. History of fractures. 14. Sleep apnea. 15. Obesity. 16. Osteoarthritis. 17. Chronic back pain. 18. Hypertension, diabetes. Treatment per primary. 19. Chronic kidney disease. 20. Past medical history as noted. 21. Allergies to adhesive tape, cephalexin, penicillin, and plastics. 22. Social history is negative. 23. Family history is noncontributory. 24. MAR was noted. 25. Case was discussed with RN. 26. Continue treatment per primary consultants. 27. The patient has history of bariatric surgery and also major depression. Subjective Constitutional: Reports: fever, fatigue, other - more alert HEENT: Reports: congestion - less Respiratory: Reports: shortness of breath - les Cardiovascular: Denies: chest pain Gastrointestinal/Abdominal: Denies: nausea, vomiting, diarrhea Genitourinary: Reports: other - no pascual Neurologic: Denies: headache Psychiatric: Denies: depression Skin: Denies: rash Hematologic: Denies: bleeding Musculoskeletal: Denies: pain Allergies: Coded Allergies: ADHESIVE TAPE (Verified Allergy, Unknown, 04/15/18) CEPHALEXIN (Verified Allergy, Unknown, 04/15/18) PENICILLINS (Verified Allergy, Unknown, 04/15/18) Uncoded Allergies: PENICILLIN (Allergy, Unknown, 04/15/18) PLAS (Allergy, Unknown, 04/15/18) Objective Vital Signs Last 24 Hour Vital Signs Date Time Temp Pulse Resp B/P (MAP) Pulse Ox O2 Delivery O2 Flow Rate FiO2 04/17/18 16:00 98.2 72 20 117/47 (70) 96 98.2 04/17/18 13:22 71 16 99 Nasal Cannula 2.0 28 04/17/18 13:12 69 14 96 Nasal Cannula 2.0 28 04/17/18 11:34 98.1 68 18 140/69 (92) 95 98.1 04/17/18 09:00 Nasal Cannula 2.0 04/17/18 08:45 137/58 04/17/18 07:54 62 18 99 Nasal Cannula 2.0 28 04/17/18 07:44 96 Nasal Cannula 2.0 28 04/17/18 07:44 59 16 96 Nasal Cannula 2.0 28 04/17/18 07:44 Nasal Cannula 2.0 28 04/17/18 07:27 98.1 98.1 04/17/18 07:15 62 20 137/58 (84) 93 04/17/18 04:00 98.6 71 20 138/62 (87) 94 98.6 04/17/18 01:32 60 18 98 Nasal Cannula 2.0 28 04/17/18 01:23 60 18 95 Nasal Cannula 2.0 28 04/17/18 00:55 98.6 04/17/18 00:00 100.5 65 19 140/65 (90) 93 100.5 04/16/18 23:56 100.5 04/16/18 21:30 76 24 95 Facial 28 04/16/18 21:00 Nasal Cannula 2.0 04/16/18 20:18 70 20 99 Nasal Cannula 2.0 28 04/16/18 20:08 95 Nasal Cannula 2.0 28 04/16/18 20:08 68 20 95 Nasal Cannula 2.0 28 04/16/18 20:08 Nasal Cannula 2.0 28 04/16/18 20:00 98.8 70 21 142/59 (86) 94 98.8 Height (Feet): 5 Height (Inches): 8.00 Weight (Pounds): 285 General Appearance: no acute distress HEENT: normocephalic, atraumatic, anicteric, mucous membranes moist Respiratory/Chest: crackles/rales, rhonchi - bilaterally Cardiovascular: normal rate, regular rhythm, no gallop/murmur, no JVD Abdomen: normal bowel sounds, soft, non tender, no organomegaly, non distended Genitourinary: other - no pascual Extremities: no cyanosis Skin: no rash Neurologic/Psychiatric: drafter refrigeration II-XII grossly normal, alert, responsive Lymphatic: no neck adenopathy Musculoskeletal: no effusion Objective Chest x-ray - 04/16 - Findings: There is diffuse bilateral interstitial congestion airspace edema which appears minimally improved. Left-sided pleural fluid appears unchanged. The heart remains enlarged. Impression: Minimally improved airspace edema and interstitial congestion, over one day Stable left pleural effusion Microbiology Date/Time Source Procedure Growth Status 04/15/18 18:00 Blood Blood Culture - Preliminary NO GROWTH AFTER 24 HOURS Resulted 04/15/18 17:45 Blood Blood Culture - Preliminary NO GROWTH AFTER 24 HOURS Resulted 04/15/18 23:00 Sputum Induced Gram Stain - Final Resulted 04/15/18 23:00 Sputum Induced Sputum Culture Pending Resulted 04/15/18 09:55 Nasal Nares MRSA Culture - Final NO METHICILLIN RESISTANT STAPH AUREUS... Complete 04/15/18 20:40 Urine,Clean Catch Urine Culture - Preliminary Mixed Gram Positive Organism Resulted 04/15/18 09:55 Rectum VRE Culture - Final NO VANCOMYCIN RESISTANT ENTEROCOCCUS ... Complete 04/15/18 09:55 Rectum - Final NO CARBAPENEM-RESISTANT ENTEROBACTERI... Complete Laboratory Tests Test 04/17/18 07:45 White Blood Count 9.2 K/UL (4.8-10.8) Red Blood Count 3.70 M/UL (4.70-6.10) L Hemoglobin 11.0 G/DL (14.2-18.0) L Hematocrit 33.9 % (42.0-52.0) L Mean Corpuscular Volume 92 FL (80-99) Mean Corpuscular Hemoglobin 29.8 PG (27.0-31.0) Mean Corpuscular Hemoglobin Concent 32.5 G/DL (32.0-36.0) Red Cell Distribution Width 11.9 % (11.6-14.8) Platelet Count 180 K/UL (150-450) Mean Platelet Volume 9.0 FL (6.5-10.1) Neutrophils (%) (Auto) % (45.0-75.0) Lymphocytes (%) (Auto) % (20.0-45.0) Monocytes (%) (Auto) % (1.0-10.0) Eosinophils (%) (Auto) % (0.0-3.0) Basophils (%) (Auto) % (0.0-2.0) Differential Total Cells Counted 100 Neutrophils % (Manual) 80 % (45-75) H Lymphocytes % (Manual) 2 % (20-45) L Monocytes % (Manual) 7 % (1-10) Eosinophils % (Manual) 0 % (0-3) Basophils % (Manual) 0 % (0-2) Band Neutrophils 11 % (0-8) H Platelet Estimate Adequate Platelet Morphology Normal Red Blood Cell Morphology Normal Sodium Level 133 MMOL/L (136-145) L Potassium Level 3.7 MMOL/L (3.5-5.1) Chloride Level 98 MMOL/L (98-107) Carbon Dioxide Level 27 MMOL/L (21-32) Anion Gap 8 mmol/L (5-15) Blood Urea Nitrogen 44 mg/dL (7-18) H Creatinine 1.5 MG/DL (0.55-1.30) H Estimat Glomerular Filtration Rate 47.0 mL/min (>60) Glucose Level 285 MG/DL (74-106) H Calcium Level 8.7 MG/DL (8.5-10.1) Total Bilirubin 0.6 MG/DL (0.2-1.0) Aspartate Amino Transf (AST/SGOT) 12 U/L (15-37) L Alanine Aminotransferase (ALT/SGPT) 18 U/L (12-78) Alkaline Phosphatase 74 U/L (46-116) Total Protein 7.7 G/DL (6.4-8.2) Albumin 2.5 G/DL (3.4-5.0) L Globulin 5.2 g/dL Albumin/Globulin Ratio 0.5 (1.0-2.7) L Vancomycin Level Trough 16.1 ug/mL (5.0-12.0) H Current Medications Medications (Trade) Dose Ordered Sig/Tessa Route PRN Reason Start Time Stop Time Status Last Admin Dose Admin Acetaminophen (Tylenol) 650 mg Q4H PRN ORAL Mild Pain/Temp > 100.5 04/15/18 18:00 05/15/18 17:59 04/16/18 23:56 Acetaminophen/ Hydrocodone Bitart ([place] 10/325) 1 tab Q8H PRN ORAL PAIN 4-10 04/15/18 18:00 04/22/18 15:59 04/17/18 11:47 Albuterol/ Ipratropium (Albuterol/ Ipratropium) 3 ml Q6HRT HHN 04/15/18 19:00 04/20/18 18:59 04/17/18 13:11 Aspirin (ASA) 81 mg DAILY NG 04/16/18 09:00 05/16/18 08:59 04/17/18 08:45 Atorvastatin Calcium (Lipitor) 40 mg QHS ORAL 04/15/18 21:00 05/15/18 20:59 04/16/18 20:39 Aztreonam 1 gm/ Dextrose 55 ml @ 110 mls/hr Q8HR IVPB 04/15/18 22:00 04/22/18 21:59 04/17/18 13:39 Citalopram Hydrobromide (celeXA) 40 mg DAILY ORAL 04/16/18 09:00 05/16/18 08:59 04/17/18 08:45 Clopidogrel Bisulfate (Plavix) 75 mg DAILY ORAL 04/16/18 09:00 05/16/18 08:59 04/17/18 08:45 Cyanocobalamin (Vitamin B-12) 2,500 mcg DAILY ORAL 04/16/18 09:00 05/16/18 08:59 04/17/18 08:45 Dextrose (Dextrose 50%) 25 ml STAT PRN IV Hypoglycemia 04/15/18 16:15 05/15/18 16:14 Dextrose (Dextrose 50%) 50 ml STAT PRN IV Hypoglycemia 04/15/18 16:15 05/15/18 16:14 Furosemide (Lasix) 20 mg EVERY 12 HOURS IV 04/15/18 21:00 05/15/18 20:59 04/17/18 08:46 Insulin Aspart (NovoLOG) BEFORE MEALS AND HS SUBQ 04/15/18 16:30 05/15/18 16:29 04/17/18 11:49 Insulin Aspart (NovoLOG) 2 units NOVOTIAC SUBQ 04/17/18 11:50 05/17/18 11:49 04/17/18 11:51 Insulin Detemir (Levemir) 20 units BEDTIME SUBQ 04/17/18 21:00 05/17/18 20:59 Lactulose (Cephulac) 30 gm Q6H PRN ORAL Constipation 04/15/18 16:00 05/15/18 15:59 04/17/18 15:01 Levofloxacin (Levaquin) 500 mg Q24H ORAL 04/16/18 17:00 04/23/18 16:59 04/16/18 16:47 Losartan Potassium (Cozaar) 25 mg DAILY ORAL 04/16/18 09:00 05/16/18 08:59 04/17/18 08:45 Metformin HCl (Glucophage) 500 mg TIAC ORAL 04/16/18 06:30 05/16/18 06:29 04/17/18 06:04 Metronidazole (Flagyl) 500 mg EVERY 8 HOURS ORAL 04/15/18 22:00 04/22/18 21:59 04/17/18 13:38 Ondansetron HCl (Zofran) 4 mg Q6H PRN IV Nausea & Vomiting 04/17/18 09:00 05/17/18 08:59 04/17/18 09:24 Oxybutynin Chloride (Ditropan) 10 mg DAILY ORAL 04/16/18 09:00 05/16/18 08:59 04/17/18 08:45 Vancomycin HCl (Vanco rx to dose) 1 ea DAILY PRN MISC Per rx protocol 04/15/18 17:00 05/15/18 16:59 Vancomycin HCl 1 gm/Dextrose 275 ml @ 183.708 mls/hr Q12H IVPB 04/15/18 21:00 04/20/18 20:59 04/17/18 10:38 Annamarie Wells MD Apr 17, 2018 17:21
[2018-04-17 20:00] VITALS: BP 120/56
[2018-04-17] MEDS: Atorvastatin 20mg tab ORAL SCH (21:08)
[2018-04-17] MEDS: Levemir Flexpen SUBQ SCH (21:10)
[2018-04-18] VITALS: BP 145/63
[2018-04-18] MEDS: Albuterol/Ipratropium 3ml neb HHN SCH ×4 (01:10→20:32)
[2018-04-18] MEDS: HYDROcodone/Acetamin 10/325 tab ORAL PRN ×3 (01:50→20:02)
[2018-04-18 04:00] VITALS: BP 142/56
[2018-04-18] MEDS: Aztreonam Inj 1 GM in D5W 55 ML IVPB SCH ×3 (04:44→21:28)
[2018-04-18] MEDS: metroNIDAZOLE 500mg tab ORAL SCH ×3 (05:59→21:28)
[2018-04-18] MEDS: metFORMIN 500mg tab ORAL SCH ×3 (05:59→17:32)
[2018-04-18] MEDS: NovoLOG Insulin Flexpen SUBQ SCH ×7 (06:00→20:27)
[2018-04-18 07:39] LABS: HEMATOCRIT 37.2 % (42.0-52.0); HEMOGLOBIN 11.8 G/DL (14.2-18.0); MEAN CORPUSCULAR VOLUME 93 FL (80-99); PLATELET COUNT 232 K/UL (150-450); RED CELL DISTRIBUTION WIDTH 12.3 % (11.6-14.8); WHITE BLOOD COUNT 10.4 K/UL (4.8-10.8)
[2018-04-18 07:52] LABS: ALANINE AMINOTRANSFERASE 12 U/L (12-78); ALBUMIN 2.4 G/DL (3.4-5.0); ALBUMIN/GLOBULIN RATIO 0.5 (1.0-2.7); ALKALINE PHOSPHATASE 69 U/L (46-116); ANION GAP 8 mmol/L (5-15); ASPARTATE AMINO TRANSFERASE 11 U/L (15-37); BILIRUBIN,TOTAL 0.5 MG/DL (0.2-1.0); BLOOD UREA NITROGEN 48 mg/dL (7-18); CALCIUM 8.8 MG/DL (8.5-10.1); CARBON DIOXIDE 31 MMOL/L (21-32); CHLORIDE 97 MMOL/L (98-107); CREATININE 1.6 MG/DL (0.55-1.30); POTASSIUM 3.6 MMOL/L (3.5-5.1); SODIUM 136 MMOL/L (136-145)
[2018-04-18 08:00] VITALS: BP 123/54
[2018-04-18] MEDS: Losartan 25mg tab ORAL SCH (08:27)
[2018-04-18] MEDS: Oxybutynin 5mg tab ORAL SCH (08:27)
[2018-04-18] MEDS: Vitamin B-12 500mcg tab ORAL SCH (08:28)
[2018-04-18] MEDS: Aspirin Baby 81mg NG SCH (08:28)
[2018-04-18] MEDS: Citalopram Hydrobromide 10mg Tab ORAL SCH (08:28)
[2018-04-18] MEDS: Vancomycin 1gm/D5W 275ml IVPB SCH ×4 (08:40→20:25)
[2018-04-18 12:00] VITALS: BP 132/59
--- NOTE | 2018-04-18 12:13 | Diagnostic Imaging Report ---
EXAM: XR Chest, 2 Views CLINICAL HISTORY: Shortness of breath TECHNIQUE: Frontal and lateral views of the chest. COMPARISON: Chest x-ray dated 04/16/18 at 7:22 AM FINDINGS: Lungs: Persistent increased interstitial markings. Left lower lung opacity has improved compared to the prior exam. Pleural space: There has been interval improvement in the appearance of the layering left pleural effusion. No visible pneumothorax. Heart: Unremarkable. No cardiomegaly. Mediastinum: Unremarkable. Bones/joints: Unremarkable. IMPRESSION: 1. There has been interval significant improvement in the appearance of the layering left pleural effusion. 2. Persistent increased interstitial markings. Differential diagnosis includes pulmonary vascular congestion, bronchitis, and interstitial pneumonitis.
[2018-04-18 16:00] VITALS: BP 131/68
[2018-04-18] MEDS: Levofloxacin 500mg tab ORAL SCH (17:34)
--- NOTE | 2018-04-18 18:37 | Pulmonology Progress Note ---
Assessment/Plan Assessment/Plan 1. Acute respiratory failure. 2. Pneumonia with sepsis. 3. COPD. 4. Multiple sclerosis. 5. DNR status. 6. Diabetes. 7. Morbid obesity. 8. Marked leukopenia. 9. Chronic kidney disease stage 3. 10. Hyperproteinemia. 11. Probable diastolic heart failure. cont abx Zofran for nausea, poor PO adjust insulin for high BS bowel care wound care check RA sat fall precautions now wants to continue treatment not on hospice Subjective HEENT: Repors: no symptoms Cardiovascular: Reports: no symptoms Gastrointestinal/Abdominal: Reports: no symptoms Genitourinary: Reports: no symptoms Allergies: Coded Allergies: ADHESIVE TAPE (Verified Allergy, Unknown, 04/15/18) CEPHALEXIN (Verified Allergy, Unknown, 04/15/18) PENICILLINS (Verified Allergy, Unknown, 04/15/18) Uncoded Allergies: PENICILLIN (Allergy, Unknown, 04/15/18) PLAS (Allergy, Unknown, 04/15/18) Subjective complains of no bm 4 days refusing laculose no cp nv or bleeding minimal po no fever not getting oob Objective Last 24 Hour Vital Signs Date Time Temp Pulse Resp B/P (MAP) Pulse Ox O2 Delivery O2 Flow Rate FiO2 04/18/18 16:00 97.7 73 20 131/68 (89) 97 97.7 04/18/18 13:53 84 18 100 Nasal Cannula 2.0 04/18/18 13:44 79 18 97 Nasal Cannula 2.0 28 04/18/18 12:00 98.5 96 20 132/59 (83) 96 98.5 04/18/18 08:27 123/54 04/18/18 08:08 Nasal Cannula 2.0 04/18/18 08:00 98.4 80 20 123/54 (77) 96 98.4 04/18/18 07:47 86 18 99 Nasal Cannula 2.0 28 04/18/18 07:41 96 Nasal Cannula 2.0 28 04/18/18 07:41 Nasal Cannula 2.0 28 04/18/18 07:41 84 18 96 Nasal Cannula 2.0 28 04/18/18 04:00 98.2 72 19 142/56 (84) 98 98.2 04/18/18 01:20 70 18 99 Nasal Cannula 2.0 28 04/18/18 01:10 72 16 97 Nasal Cannula 2.0 28 04/18/18 00:00 98.0 70 19 145/63 (90) 97 98.0 04/17/18 23:21 67 20 95 Facial 28 04/17/18 21:00 Nasal Cannula 2.0 04/17/18 20:11 75 18 98 Nasal Cannula 2.0 28 04/17/18 20:01 Nasal Cannula 2.0 28 04/17/18 20:01 96 Nasal Cannula 2.0 28 04/17/18 20:01 75 16 96 Nasal Cannula 2.0 28 04/17/18 20:00 98.5 75 19 120/56 (77) 97 98.5 Intake and Output 04/17/18 04/18/18 19:00 07:00 Intake Total 830.000 ml 830.000 ml Balance 830.000 ml 830.000 ml Intake Oral 500 ml 500 ml IV Total 330.000 ml 330.000 ml # Voids 4 3 General Appearance: WD/WN HEENT: atraumatic Respiratory/Chest: lungs clear, normal breath sounds Cardiovascular: regular rhythm, edema Microbiology Date/Time Source Procedure Growth Status 04/15/18 23:00 Sputum Induced Gram Stain - Final Complete 04/15/18 23:00 Sputum Induced Sputum Culture - Final NORMAL UPPER RESPIRATORY VIJAYA AT 48 ... Complete 04/15/18 20:40 Urine,Clean Catch Urine Culture - Final Mixed Gram Positive Organism Complete Laboratory Tests 04/18/18 06:45: White Blood Count 10.4, Red Blood Count 4.00L, Hemoglobin 11.8L, Hematocrit 37.2L, Mean Corpuscular Volume 93, Mean Corpuscular Hemoglobin 29.4, Mean Corpuscular Hemoglobin Concent 31.6L, Red Cell Distribution Width 12.3, Platelet Count 232, Mean Platelet Volume 7.4, Neutrophils (%) (Auto) , Lymphocytes (%) (Auto) , Monocytes (%) (Auto) , Eosinophils (%) (Auto) , Basophils (%) (Auto) , Differential Total Cells Counted 100, Neutrophils % ( Manual) 88H, Lymphocytes % (Manual) 7L, Monocytes % (Manual) 5, Eosinophils % ( Manual) 0, Basophils % (Manual) 0, Band Neutrophils 0, Platelet Estimate Adequate, Platelet Morphology Normal, Hypochromasia 1+, Anisocytosis 1+, Sodium Level 136, Potassium Level 3.6, Chloride Level 97L, Carbon Dioxide Level 31, Anion Gap 8, Blood Urea Nitrogen 48H, Creatinine 1.6H, Estimat Glomerular Filtration Rate 43.6, Glucose Level 249H, Calcium Level 8.8, Total Bilirubin 0.5 , Aspartate Amino Transf (AST/SGOT) 11L, Alanine Aminotransferase (ALT/SGPT) 12 , Alkaline Phosphatase 69, Total Protein 7.6, Albumin 2.4L, Globulin 5.2, Albumin/Globulin Ratio 0.5L Current Medications Medications (Trade) Dose Ordered Sig/Tessa Route PRN Reason Start Time Stop Time Status Last Admin Dose Admin Acetaminophen (Tylenol) 650 mg Q4H PRN ORAL Mild Pain/Temp > 100.5 04/15/18 18:00 05/15/18 17:59 04/16/18 23:56 Acetaminophen/ Hydrocodone Bitart ([place] 10/325) 1 tab Q8H PRN ORAL PAIN 4-10 04/15/18 18:00 04/22/18 15:59 04/18/18 11:06 Albuterol/ Ipratropium (Albuterol/ Ipratropium) 3 ml Q6HRT HHN 04/15/18 19:00 04/20/18 18:59 04/18/18 13:44 Aspirin (ASA) 81 mg DAILY NG 04/16/18 09:00 05/16/18 08:59 04/18/18 08:28 Atorvastatin Calcium (Lipitor) 40 mg QHS ORAL 04/15/18 21:00 05/15/18 20:59 04/17/18 21:08 Aztreonam 1 gm/ Dextrose 55 ml @ 110 mls/hr Q8HR IVPB 04/15/18 22:00 04/22/18 21:59 04/18/18 13:10 Citalopram Hydrobromide (celeXA) 40 mg DAILY ORAL 04/16/18 09:00 05/16/18 08:59 04/18/18 08:28 Clopidogrel Bisulfate (Plavix) 75 mg DAILY ORAL 04/16/18 09:00 05/16/18 08:59 04/18/18 08:29 Cyanocobalamin (Vitamin B-12) 2,500 mcg DAILY ORAL 04/16/18 09:00 05/16/18 08:59 04/18/18 08:28 Dextrose (Dextrose 50%) 25 ml STAT PRN IV Hypoglycemia 04/15/18 16:15 05/15/18 16:14 Dextrose (Dextrose 50%) 50 ml STAT PRN IV Hypoglycemia 04/15/18 16:15 05/15/18 16:14 Furosemide (Lasix) 20 mg EVERY 12 HOURS IV 04/15/18 21:00 05/15/18 20:59 04/18/18 08:34 Insulin Aspart (NovoLOG) BEFORE MEALS AND HS SUBQ 04/15/18 16:30 05/15/18 16:29 04/18/18 17:37 Insulin Aspart (NovoLOG) 2 units NOVOTIAC SUBQ 04/17/18 11:50 05/17/18 11:49 04/18/18 11:51 Insulin Detemir (Levemir) 20 units BEDTIME SUBQ 04/17/18 21:00 05/17/18 20:59 04/17/18 21:10 Lactulose (Cephulac) 30 gm Q6H PRN ORAL Constipation 04/15/18 16:00 05/15/18 15:59 04/17/18 15:01 Levofloxacin (Levaquin) 500 mg Q24H ORAL 04/16/18 17:00 04/23/18 16:59 04/18/18 17:34 Losartan Potassium (Cozaar) 25 mg DAILY ORAL 04/16/18 09:00 05/16/18 08:59 04/18/18 08:27 Metformin HCl (Glucophage) 500 mg TIAC ORAL 04/16/18 06:30 05/16/18 06:29 04/18/18 17:32 Metronidazole (Flagyl) 500 mg EVERY 8 HOURS ORAL 04/15/18 22:00 04/22/18 21:59 04/18/18 13:09 Ondansetron HCl (Zofran) 4 mg Q6H PRN IV Nausea & Vomiting 04/17/18 09:00 05/17/18 08:59 04/18/18 08:40 Oxybutynin Chloride (Ditropan) 10 mg DAILY ORAL 04/16/18 09:00 05/16/18 08:59 04/18/18 08:27 Vancomycin HCl (Vanco rx to dose) 1 ea DAILY PRN MISC Per rx protocol 04/15/18 17:00 05/15/18 16:59 Vancomycin HCl 1 gm/Dextrose 275 ml @ 183.708 mls/hr Q12H IVPB 04/15/18 21:00 04/20/18 20:59 04/18/18 08:40 Deisy May DO Apr 18, 2018 18:37
[2018-04-18 20:00] VITALS: BP 129/64
[2018-04-18] MEDS ORDERED: Fleet's Enema 133ml RECTAL PRN (20:00)
[2018-04-18] MEDS: Atorvastatin 20mg tab ORAL SCH (20:25)
[2018-04-18] MEDS: Levemir Flexpen SUBQ SCH (20:31)
[2018-04-18] MEDS: Fleet's Enema 133ml RECTAL SCH (21:28)
[2018-04-19] VITALS: BP 120/56
[2018-04-19] MEDS: Albuterol/Ipratropium 3ml neb HHN SCH ×4 (02:01→19:59)
[2018-04-19 04:00] VITALS: BP 120/57
[2018-04-19] MEDS: metroNIDAZOLE 500mg tab ORAL SCH ×3 (05:43→22:12)
[2018-04-19] MEDS: HYDROcodone/Acetamin 10/325 tab ORAL PRN ×2 (05:44→16:44)
[2018-04-19] MEDS: Aztreonam Inj 1 GM in D5W 55 ML IVPB SCH ×2 (05:44→14:52)
[2018-04-19] MEDS: metFORMIN 500mg tab ORAL SCH ×3 (05:53→16:43)
[2018-04-19] MEDS: NovoLOG Insulin Flexpen SUBQ SCH ×7 (05:53→22:01)
--- NOTE | 2018-04-19 07:06 | Pulmonology Progress Note ---
Assessment/Plan Assessment/Plan 1. Acute respiratory failure. 2. Pneumonia with sepsis. 3. COPD. 4. Multiple sclerosis. 5. DNR status. 6. Diabetes. 7. Morbid obesity. 8. Marked leukopenia. 9. Chronic kidney disease stage 3. 10. Hyperproteinemia. 11. Probable diastolic heart failure. stable this am cont abx Zofran for nausea, poor PO BS control bowel care wound care check RA sat fall precautions now wants to continue treatment and not on hospice Fu am labs pending this am no family presnt Subjective Constitutional: Reports: no symptoms HEENT: Repors: no symptoms Respiratory: Reports: no symptoms Cardiovascular: Reports: no symptoms Gastrointestinal/Abdominal: Reports: no symptoms Allergies: Coded Allergies: ADHESIVE TAPE (Verified Allergy, Unknown, 04/15/18) CEPHALEXIN (Verified Allergy, Unknown, 04/15/18) PENICILLINS (Verified Allergy, Unknown, 04/15/18) Uncoded Allergies: PENICILLIN (Allergy, Unknown, 04/15/18) PLAS (Allergy, Unknown, 04/15/18) Subjective no distress over night no appetite and states did nto eat dinner no cp nv or bleeding positive uop no fever not getting oob CXR with improved edema effusions Objective Last 24 Hour Vital Signs Date Time Temp Pulse Resp B/P (MAP) Pulse Ox O2 Delivery O2 Flow Rate FiO2 04/19/18 04:00 97.1 71 20 120/57 (78) 94 97.1 04/19/18 03:37 73 21 95 Facial 28 04/19/18 02:03 74 21 97 Bi-pap 04/19/18 02:02 70 21 94 Facial 28 04/19/18 01:10 68 20 94 Nasal Cannula 2.0 28 04/19/18 00:00 99.0 87 19 120/56 (77) 96 99.0 04/18/18 22:59 69 21 94 Facial 28 04/18/18 21:00 Nasal Cannula 2.0 04/18/18 20:00 98.1 80 20 129/64 (85) 96 98.1 04/18/18 19:10 72 20 99 Nasal Cannula 2.0 28 04/18/18 19:00 Nasal Cannula 2.0 28 04/18/18 19:00 68 20 96 Nasal Cannula 2.0 28 04/18/18 19:00 96 Nasal Cannula 2.0 28 04/18/18 16:00 97.7 73 20 131/68 (89) 97 97.7 04/18/18 13:53 84 18 100 Nasal Cannula 2.0 28 04/18/18 13:44 79 18 97 Nasal Cannula 2.0 28 04/18/18 12:00 98.5 96 20 132/59 (83) 96 98.5 04/18/18 08:27 123/54 04/18/18 08:08 Nasal Cannula 2.0 04/18/18 08:00 98.4 80 20 123/54 (77) 96 98.4 04/18/18 07:47 86 18 99 Nasal Cannula 2.0 28 04/18/18 07:41 96 Nasal Cannula 2.0 28 04/18/18 07:41 Nasal Cannula 2.0 28 04/18/18 07:41 84 18 96 Nasal Cannula 2.0 28 Intake and Output 04/18/18 04/19/18 19:00 07:00 Intake Total 930.0 ml 413.708 ml Balance 930.0 ml 413.708 ml Intake Oral 600 ml 120 ml IV Total 330.0 ml 293.708 ml # Voids 3 3 General Appearance: WD/WN HEENT: atraumatic, anicteric Respiratory/Chest: rhonchi Cardiovascular: normal rate, regular rhythm Abdomen: soft, non tender, no organomegaly Extremities: no cyanosis 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, alert, oriented x 3 Laboratory Tests 04/19/18 05:00: White Blood Count [Pending], Red Blood Count [Pending], Hemoglobin [Pending], Hematocrit [Pending], Mean Corpuscular Volume [Pending], Mean Corpuscular Hemoglobin [Pending], Mean Corpuscular Hemoglobin Concent [Pending], Red Cell Distribution Width [Pending], Platelet Count [Pending], Mean Platelet Volume [ Pending], Neutrophils (%) (Auto) [Pending], Lymphocytes (%) (Auto) [Pending], Monocytes (%) (Auto) [Pending], Eosinophils (%) (Auto) [Pending], Basophils (%) (Auto) [Pending], Sodium Level [Pending], Potassium Level [Pending], Chloride Level [Pending], Carbon Dioxide Level [Pending], Blood Urea Nitrogen [Pending], Creatinine [Pending], Estimat Glomerular Filtration Rate [Pending], Glucose Level [Pending], Calcium Level [Pending], Total Bilirubin [Pending], Aspartate Amino Transf (AST/SGOT) [Pending], Alanine Aminotransferase (ALT/SGPT) [Pending] , Alkaline Phosphatase [Pending], Total Protein [Pending], Albumin [Pending], Globulin [Pending] Current Medications Medications (Trade) Dose Ordered Sig/Tessa Route PRN Reason Start Time Stop Time Status Last Admin Dose Admin Acetaminophen (Tylenol) 650 mg Q4H PRN ORAL Mild Pain/Temp > 100.5 04/15/18 18:00 05/15/18 17:59 04/16/18 23:56 Acetaminophen/ Hydrocodone Bitart ([place] 10/325) 1 tab Q8H PRN ORAL PAIN 4-10 04/15/18 18:00 04/22/18 15:59 04/19/18 05:44 Albuterol/ Ipratropium (Albuterol/ Ipratropium) 3 ml Q6HRT HHN 04/15/18 19:00 04/20/18 18:59 04/19/18 02:01 Aspirin (ASA) 81 mg DAILY NG 04/16/18 09:00 05/16/18 08:59 04/18/18 08:28 Atorvastatin Calcium (Lipitor) 40 mg QHS ORAL 04/15/18 21:00 05/15/18 20:59 04/18/18 20:25 Aztreonam 1 gm/ Dextrose 55 ml @ 110 mls/hr Q8HR IVPB 04/15/18 22:00 04/22/18 21:59 04/19/18 05:44 Bisacodyl (Dulcolax) 10 mg DAILYPRN PRN RECTAL Constipation 04/18/18 19:00 05/18/18 18:59 Citalopram Hydrobromide (celeXA) 40 mg DAILY ORAL 04/16/18 09:00 05/16/18 08:59 04/18/18 08:28 Clopidogrel Bisulfate (Plavix) 75 mg DAILY ORAL 04/16/18 09:00 05/16/18 08:59 04/18/18 08:29 Cyanocobalamin (Vitamin B-12) 2,500 mcg DAILY ORAL 04/16/18 09:00 05/16/18 08:59 04/18/18 08:28 Dextrose (Dextrose 50%) 25 ml STAT PRN IV Hypoglycemia 04/15/18 16:15 05/15/18 16:14 Dextrose (Dextrose 50%) 50 ml STAT PRN IV Hypoglycemia 04/15/18 16:15 05/15/18 16:14 Furosemide (Lasix) 20 mg EVERY 12 HOURS IV 04/15/18 21:00 05/15/18 20:59 04/18/18 20:25 Insulin Aspart (NovoLOG) BEFORE MEALS AND HS SUBQ 04/15/18 16:30 05/15/18 16:29 04/19/18 05:53 Insulin Aspart (NovoLOG) 2 units NOVOTIAC SUBQ 04/17/18 11:50 05/17/18 11:49 04/19/18 05:56 Insulin Detemir (Levemir) 20 units BEDTIME SUBQ 04/17/18 21:00 05/17/18 20:59 04/18/18 20:31 Lactulose (Cephulac) 30 gm Q6H PRN ORAL Constipation 04/15/18 16:00 05/15/18 15:59 04/17/18 15:01 Levofloxacin (Levaquin) 500 mg Q24H ORAL 04/16/18 17:00 04/23/18 16:59 04/18/18 17:34 Losartan Potassium (Cozaar) 25 mg DAILY ORAL 04/16/18 09:00 05/16/18 08:59 04/18/18 08:27 Metformin HCl (Glucophage) 500 mg TIAC ORAL 04/16/18 06:30 05/16/18 06:29 04/19/18 05:53 Metronidazole (Flagyl) 500 mg EVERY 8 HOURS ORAL 04/15/18 22:00 04/22/18 21:59 04/19/18 05:43 Ondansetron HCl (Zofran) 4 mg Q6H PRN IV Nausea & Vomiting 04/17/18 09:00 05/17/18 08:59 04/18/18 08:40 Oxybutynin Chloride (Ditropan) 10 mg DAILY ORAL 04/16/18 09:00 05/16/18 08:59 04/18/18 08:27 Sodium Phosphate (Fleet's Sodium Phosl Enema) 133 ml DAILY@2100 RECTAL 04/18/18 21:00 05/18/18 20:59 04/18/18 21:28 Sodium Phosphate (Fleet's Sodium Phosl Enema) 133 ml DAILYPRN PRN RECTAL Constipation 04/18/18 20:00 05/18/18 19:59 Vancomycin HCl (Vanco rx to dose) 1 ea DAILY PRN MISC Per rx protocol 04/15/18 17:00 05/15/18 16:59 Vancomycin HCl 1 gm/Dextrose 275 ml @ 183.708 mls/hr Q12H IVPB 04/15/18 21:00 04/20/18 20:59 04/18/18 20:25 Deisy May DO Apr 19, 2018 07:06
[2018-04-19 07:23] LABS: HEMATOCRIT 35.9 % (42.0-52.0); HEMOGLOBIN 12.1 G/DL (14.2-18.0); MEAN CORPUSCULAR VOLUME 93 FL (80-99); PLATELET COUNT 235 K/UL (150-450); RED BLOOD COUNT 3.87 M/UL (4.70-6.10); RED CELL DISTRIBUTION WIDTH 12.1 % (11.6-14.8); WHITE BLOOD COUNT 10.2 K/UL (4.8-10.8)
[2018-04-19 07:49] LABS: ALANINE AMINOTRANSFERASE 14 U/L (12-78); ALBUMIN 2.4 G/DL (3.4-5.0); ALBUMIN/GLOBULIN RATIO 0.5 (1.0-2.7); ALKALINE PHOSPHATASE 71 U/L (46-116); ANION GAP 8 mmol/L (5-15); ASPARTATE AMINO TRANSFERASE 18 U/L (15-37); BILIRUBIN,TOTAL 0.5 MG/DL (0.2-1.0); BLOOD UREA NITROGEN 52 mg/dL (7-18); CALCIUM 8.8 MG/DL (8.5-10.1); CARBON DIOXIDE 30 MMOL/L (21-32); CHLORIDE 97 MMOL/L (98-107); CREATININE 1.7 MG/DL (0.55-1.30); POTASSIUM 3.7 MMOL/L (3.5-5.1); SODIUM 135 MMOL/L (136-145)
[2018-04-19 08:00] VITALS: BP 118/68
[2018-04-19] MEDS: Oxybutynin 5mg tab ORAL SCH (08:39)
[2018-04-19] MEDS: Vancomycin 1gm/D5W 275ml IVPB SCH ×2 (08:39)
[2018-04-19] MEDS: Losartan 25mg tab ORAL SCH (08:42)
[2018-04-19] MEDS: Vitamin B-12 500mcg tab ORAL SCH (08:43)
[2018-04-19] MEDS: Aspirin Baby 81mg NG SCH (08:43)
[2018-04-19] MEDS: Citalopram Hydrobromide 10mg Tab ORAL SCH (08:43)
[2018-04-19] MEDS ORDERED: NS 275ml ONE (09:12)
[2018-04-19 12:00] VITALS: BP 130/57
--- NOTE | 2018-04-19 14:40 | Cardiology Report ---
APPROVED REPORT EXAM: Two-dimensional and M-mode echocardiogram with Doppler and color Doppler. INDICATION Shortness of breath M-Mode DIMENSIONS IVSd1.5 (0.7-1.1cm)Left Atrium (MM)3.9 (1.6-4.0cm) LVDd4.3 (3.5-5.6cm)Aortic Root2.9 (2.0-3.7cm) PWd1.0 (0.7-1.1cm)Aortic Cusp Exc.2.4 (1.5-2.0cm) LVDs1.3 (2.5-4.0cm) PWs2.3 cm Technically difficult study due to poor acoustic windows. Study quality precludes accurate assessment of regional wall motion. Normal left ventricular chamber size, systolic function and wall motion to extent visualized. Left ventricular ejection fraction estimated to be 55-60 %. Mild left ventricular hypertrophy. Anterior Echo-free space, may be due to pericardial fat or effusion. All other cardiac chamber sizes are within normal limits. Focal aortic valve sclerosis with adequate cusp excursion. Thickened mitral valve leaflets with normal excursion. Mild mitral annulus and aortic root calcification. Normal pulmonic valve structure. Normal tricuspid valve structure. Subcostal views not obtainable. A color flow and spectral Doppler study was performed and revealed: No aortic insufficiency. Mild mitral regurgitation. Normal left ventricular diastolic function. Trace tricuspid regurgitation. Tricuspid systolic velocities suggests peak right ventricular systolic pressure of 23 mmHg. Trace pulmonic regurgitation present.
--- NOTE | 2018-04-19 15:29 | Infectious Diseases Prog Note ---
Assessment/Plan Assessment/Plan ASSESSMENT AND PLAN: 1. sepsis, pna, fevers, leukopenia, sirs, elevated lactic acid - levofloxacin and flagyl x 5 days - discontinue other abx - f/u on labs, serology and chest x-ray 2. Per the records, history of multiple sclerosis. 3. The patient is DNR. 4. The patient has history of multiple contusions and falls. 5. Diabetes. 6. Hypertension. 7. Peripheral neuropathy. 8. History of diabetic foot ulcer. 9. Skin care protocol. 10. Chronic obstructive pulmonary disease. 11. History of anemia and thrombocytopenia. 12. Leukopenia. 13. History of fractures. 14. Sleep apnea. 15. Obesity. 16. Osteoarthritis. 17. Chronic back pain. 18. Hypertension, diabetes. Treatment per primary. 19. Chronic kidney disease. 20. Past medical history as noted. 21. Allergies to adhesive tape, cephalexin, penicillin, and plastics. 22. Social history is negative. 23. Family history is noncontributory. 24. MAR was noted. 25. Case was discussed with RN. 26. Continue treatment per primary consultants. 27. The patient has history of bariatric surgery and also major depression. Subjective Constitutional: Reports: fatigue, other - fevers resolved ; Denies: fever HEENT: Denies: congestion Respiratory: Denies: shortness of breath Cardiovascular: Denies: chest pain Gastrointestinal/Abdominal: Denies: nausea, vomiting, diarrhea Genitourinary: Reports: other - no pascual ; Denies: hematuria, frequency Neurologic: Denies: headache Psychiatric: Denies: depression Skin: Denies: rash Hematologic: Denies: bleeding Musculoskeletal: Denies: pain Allergies: Coded Allergies: ADHESIVE TAPE (Verified Allergy, Unknown, 04/15/18) CEPHALEXIN (Verified Allergy, Unknown, 04/15/18) PENICILLINS (Verified Allergy, Unknown, 04/15/18) Uncoded Allergies: PENICILLIN (Allergy, Unknown, 04/15/18) PLAS (Allergy, Unknown, 04/15/18) Objective Vital Signs Last 24 Hour Vital Signs Date Time Temp Pulse Resp B/P (MAP) Pulse Ox O2 Delivery O2 Flow Rate FiO2 04/19/18 12:34 75 18 95 Nasal Cannula 28 04/19/18 12:26 64 18 92 Nasal Cannula 2.0 28 04/19/18 12:00 97.5 69 19 130/57 (81) 94 97.5 04/19/18 08:42 118/68 04/19/18 08:38 67 18 95 Nasal Cannula 28 04/19/18 08:30 Nasal Cannula 2.0 04/19/18 08:27 Nasal Cannula 2.0 28 04/19/18 08:27 68 16 92 Nasal Cannula 2.0 28 04/19/18 08:27 92 Nasal Cannula 2.0 28 04/19/18 08:00 98.2 68 21 118/68 (85) 93 98.2 04/19/18 04:00 97.1 71 20 120/57 (78) 94 97.1 04/19/18 03:37 73 21 95 Facial 28 04/19/18 02:03 74 21 97 Bi-pap 28 04/19/18 02:02 70 21 94 Facial 28 04/19/18 01:10 68 20 94 Nasal Cannula 2.0 28 04/19/18 00:00 99.0 87 19 120/56 (77) 96 99.0 04/18/18 22:59 69 21 94 Facial 28 04/18/18 21:00 Nasal Cannula 2.0 04/18/18 20:00 98.1 80 20 129/64 (85) 96 98.1 04/18/18 19:10 72 20 99 Nasal Cannula 2.0 28 04/18/18 19:00 Nasal Cannula 2.0 28 04/18/18 19:00 68 20 96 Nasal Cannula 2.0 28 04/18/18 19:00 96 Nasal Cannula 2.0 28 04/18/18 16:00 97.7 73 20 131/68 (89) 97 97.7 Height (Feet): 5 Height (Inches): 8.00 Weight (Pounds): 285 General Appearance: no acute distress HEENT: normocephalic, atraumatic, anicteric, mucous membranes moist Respiratory/Chest: crackles/rales, rhonchi - bilaterally Cardiovascular: normal rate, regular rhythm, no gallop/murmur, no JVD Abdomen: normal bowel sounds, soft, non tender, no organomegaly, non distended Genitourinary: other - no pascual Extremities: no cyanosis Skin: no rash 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 Left-sided pleural fluid appears unchanged. The heart remains enlarged. Impression: Minimally improved airspace edema and interstitial congestion, over one day Stable left pleural effusion Chest x-ray - 04/18 - IMPRESSION: 1. There has been interval significant improvement in the appearance of the layering left pleural effusion. 2. Persistent increased interstitial markings. Differential diagnosis includes pulmonary vascular congestion, bronchitis, and interstitial Microbiology Date/Time Source Procedure Growth Status 04/15/18 18:00 Blood Blood Culture - Preliminary NO GROWTH AFTER 72 HOURS Resulted 04/15/18 23:00 Sputum Induced Gram Stain - Final Complete 04/15/18 23:00 Sputum Induced Sputum Culture - Final NORMAL UPPER RESPIRATORY VIJAYA AT 48 ... Complete 04/15/18 20:40 Urine,Clean Catch Urine Culture - Final Mixed Gram Positive Organism Complete 04/15/18 09:55 Rectum VRE Culture - Final NO VANCOMYCIN RESISTANT ENTEROCOCCUS ... Complete Laboratory Tests Test 04/19/18 05:00 White Blood Count 10.2 K/UL (4.8-10.8) Red Blood Count 3.87 M/UL (4.70-6.10) L Hemoglobin 12.1 G/DL (14.2-18.0) L Hematocrit 35.9 % (42.0-52.0) L Mean Corpuscular Volume 93 FL (80-99) Mean Corpuscular Hemoglobin 31.2 PG (27.0-31.0) H Mean Corpuscular Hemoglobin Concent 33.6 G/DL (32.0-36.0) Red Cell Distribution Width 12.1 % (11.6-14.8) Platelet Count 235 K/UL (150-450) Mean Platelet Volume 7.1 FL (6.5-10.1) Neutrophils (%) (Auto) % (45.0-75.0) Lymphocytes (%) (Auto) % (20.0-45.0) Monocytes (%) (Auto) % (1.0-10.0) Eosinophils (%) (Auto) % (0.0-3.0) Basophils (%) (Auto) % (0.0-2.0) Differential Total Cells Counted 100 Neutrophils % (Manual) 89 % (45-75) H Lymphocytes % (Manual) 7 % (20-45) L Monocytes % (Manual) 4 % (1-10) Eosinophils % (Manual) 0 % (0-3) Basophils % (Manual) 0 % (0-2) Band Neutrophils 0 % (0-8) Platelet Estimate Adequate Platelet Morphology Normal Red Blood Cell Morphology Normal Sodium Level 135 MMOL/L (136-145) L Potassium Level 3.7 MMOL/L (3.5-5.1) Chloride Level 97 MMOL/L (98-107) L Carbon Dioxide Level 30 MMOL/L (21-32) Anion Gap 8 mmol/L (5-15) Blood Urea Nitrogen 52 mg/dL (7-18) H Creatinine 1.7 MG/DL (0.55-1.30) H Estimat Glomerular Filtration Rate 40.7 mL/min (>60) Glucose Level 172 MG/DL (74-106) H Calcium Level 8.8 MG/DL (8.5-10.1) Total Bilirubin 0.5 MG/DL (0.2-1.0) Aspartate Amino Transf (AST/SGOT) 18 U/L (15-37) Alanine Aminotransferase (ALT/SGPT) 14 U/L (12-78) Alkaline Phosphatase 71 U/L (46-116) Total Protein 7.3 G/DL (6.4-8.2) Albumin 2.4 G/DL (3.4-5.0) L Globulin 4.9 g/dL Albumin/Globulin Ratio 0.5 (1.0-2.7) L Current Medications Medications (Trade) Dose Ordered Sig/Tessa Route PRN Reason Start Time Stop Time Status Last Admin Dose Admin Acetaminophen (Tylenol) 650 mg Q4H PRN ORAL Mild Pain/Temp > 100.5 04/15/18 18:00 05/15/18 17:59 04/16/18 23:56 Acetaminophen/ Hydrocodone Bitart ([place] 10/325) 1 tab Q8H PRN ORAL PAIN 4-10 04/15/18 18:00 04/22/18 15:59 04/19/18 05:44 Albuterol/ Ipratropium (Albuterol/ Ipratropium) 3 ml Q6HRT HHN 04/15/18 19:00 04/20/18 18:59 04/19/18 12:26 Aspirin (ASA) 81 mg DAILY NG 04/16/18 09:00 05/16/18 08:59 04/19/18 08:43 Atorvastatin Calcium (Lipitor) 40 mg QHS ORAL 04/15/18 21:00 05/15/18 20:59 04/18/18 20:25 Aztreonam 1 gm/ Dextrose 55 ml @ 110 mls/hr Q8HR IVPB 04/15/18 22:00 04/22/18 21:59 04/19/18 14:52 Bisacodyl (Dulcolax) 10 mg DAILYPRN PRN RECTAL Constipation 04/18/18 19:00 05/18/18 18:59 Citalopram Hydrobromide (celeXA) 40 mg DAILY ORAL 04/16/18 09:00 05/16/18 08:59 04/19/18 08:43 Clopidogrel Bisulfate (Plavix) 75 mg DAILY ORAL 04/16/18 09:00 05/16/18 08:59 04/19/18 08:42 Cyanocobalamin (Vitamin B-12) 2,500 mcg DAILY ORAL 04/16/18 09:00 05/16/18 08:59 04/19/18 08:43 Dextrose (Dextrose 50%) 25 ml STAT PRN IV Hypoglycemia 04/15/18 16:15 05/15/18 16:14 Dextrose (Dextrose 50%) 50 ml STAT PRN IV Hypoglycemia 04/15/18 16:15 05/15/18 16:14 Furosemide (Lasix) 20 mg EVERY 12 HOURS IV 04/15/18 21:00 05/15/18 20:59 04/19/18 08:39 Insulin Aspart (NovoLOG) BEFORE MEALS AND HS SUBQ 04/15/18 16:30 05/15/18 16:29 04/19/18 05:53 Insulin Aspart (NovoLOG) 2 units NOVOTIAC SUBQ 04/17/18 11:50 05/17/18 11:49 04/19/18 05:56 Insulin Detemir (Levemir) 20 units BEDTIME SUBQ 04/17/18 21:00 05/17/18 20:59 04/18/18 20:31 Lactulose (Cephulac) 30 gm Q6H PRN ORAL Constipation 04/15/18 16:00 05/15/18 15:59 04/17/18 15:01 Levofloxacin (Levaquin) 500 mg Q24H ORAL 04/16/18 17:00 04/23/18 16:59 04/18/18 17:34 Losartan Potassium (Cozaar) 25 mg DAILY ORAL 04/16/18 09:00 05/16/18 08:59 04/19/18 08:42 Metformin HCl (Glucophage) 500 mg TIAC ORAL 04/16/18 06:30 05/16/18 06:29 04/19/18 12:05 Metronidazole (Flagyl) 500 mg EVERY 8 HOURS ORAL 04/15/18 22:00 04/22/18 21:59 04/19/18 14:51 Ondansetron HCl (Zofran) 4 mg Q6H PRN IV Nausea & Vomiting 04/17/18 09:00 05/17/18 08:59 04/18/18 08:40 Oxybutynin Chloride (Ditropan) 10 mg DAILY ORAL 04/16/18 09:00 05/16/18 08:59 04/19/18 08:39 Sodium Phosphate (Fleet's Sodium Phosl Enema) 133 ml DAILY@2100 RECTAL 04/18/18 21:00 05/18/18 20:59 04/18/18 21:28 Sodium Phosphate (Fleet's Sodium Phosl Enema) 133 ml DAILYPRN PRN RECTAL Constipation 04/18/18 20:00 05/18/18 19:59 Vancomycin HCl (Vanco rx to dose) 1 ea DAILY PRN MISC Per rx protocol 04/15/18 17:00 05/15/18 16:59 Vancomycin HCl 1 gm/Dextrose 275 ml @ 183.708 mls/hr Q12H IVPB 04/15/18 21:00 04/20/18 20:59 04/19/18 08:39 Annamarie Wells MD Apr 19, 2018 15:28
[2018-04-19 16:00] VITALS: BP 135/61
[2018-04-19] MEDS: Levofloxacin 500mg tab ORAL SCH (16:43)
[2018-04-19 20:00] VITALS: BP 123/48
[2018-04-19] MEDS: Atorvastatin 20mg tab ORAL SCH (21:58)
[2018-04-19] MEDS: Levemir Flexpen SUBQ SCH (22:02)
[2018-04-19] MEDS: Fleet's Enema 133ml RECTAL SCH (22:44)
[2018-04-20] VITALS: BP 143/64
[2018-04-20] MEDS: HYDROcodone/Acetamin 10/325 tab ORAL PRN ×3 (01:30→19:53)
[2018-04-20] MEDS: Albuterol/Ipratropium 3ml neb HHN SCH ×3 (01:35→12:24)
[2018-04-20 04:00] VITALS: BP 143/60
[2018-04-20] MEDS: metFORMIN 500mg tab ORAL SCH ×3 (06:42→17:29)
[2018-04-20] MEDS: metroNIDAZOLE 500mg tab ORAL SCH ×3 (06:42→21:12)
[2018-04-20] MEDS: NovoLOG Insulin Flexpen SUBQ SCH ×7 (06:44→21:15)
[2018-04-20 08:00] VITALS: BP 139/58
[2018-04-20] MEDS: Aspirin Baby 81mg NG SCH (08:04)
[2018-04-20] MEDS: Losartan 25mg tab ORAL SCH (08:05)
[2018-04-20] MEDS: Citalopram Hydrobromide 10mg Tab ORAL SCH (08:05)
[2018-04-20] MEDS: Vitamin B-12 500mcg tab ORAL SCH (08:06)
[2018-04-20] MEDS: Oxybutynin 5mg tab ORAL SCH (08:06)
[2018-04-20 12:00] VITALS: BP 124/56
[2018-04-20 15:43] VITALS: BP 144/63
--- NOTE | 2018-04-20 16:34 | Pulmonology Progress Note ---
Assessment/Plan Assessment/Plan 1. Acute respiratory failure. 2. Pneumonia with sepsis. 3. COPD. 4. Multiple sclerosis. 5. DNR status. 6. Diabetes. 7. Morbid obesity. 8. Marked leukopenia. 9. Chronic kidney disease stage 3. 10. Hyperproteinemia. 11. Probable diastolic heart failure. poor PO labs better cont abx Zofran for nausea dc planning Subjective Constitutional: Denies: chills Gastrointestinal/Abdominal: Reports: other - poor intake Allergies: Coded Allergies: ADHESIVE TAPE (Verified Allergy, Unknown, 04/15/18) CEPHALEXIN (Verified Allergy, Unknown, 04/15/18) PENICILLINS (Verified Allergy, Unknown, 04/15/18) Uncoded Allergies: PENICILLIN (Allergy, Unknown, 04/15/18) PLAS (Allergy, Unknown, 04/15/18) Objective Last 24 Hour Vital Signs Date Time Temp Pulse Resp B/P (MAP) Pulse Ox O2 Delivery O2 Flow Rate FiO2 04/20/18 15:43 97.7 80 20 144/63 (90) 92 97.7 04/20/18 12:32 65 18 97 Nasal Cannula 2.0 28 04/20/18 12:24 68 20 92 Nasal Cannula 2.0 28 04/20/18 12:00 97.4 76 20 124/56 (78) 96 97.4 04/20/18 11:37 97.4 04/20/18 10:38 95.0 04/20/18 08:33 70 18 94 Nasal Cannula 2.0 28 04/20/18 08:25 71 20 88 Nasal Cannula 2.0 28 04/20/18 08:25 Nasal Cannula 2.0 28 04/20/18 08:25 88 Nasal Cannula 2.0 28 04/20/18 08:05 143/64 04/20/18 08:00 95.0 71 18 139/58 (85) 94 95.0 04/20/18 08:00 Nasal Cannula 2.0 04/20/18 04:00 98.0 66 20 143/60 (87) 97 98.0 04/20/18 02:45 76 21 99 Facial 28 04/20/18 01:42 80 18 99 Bi-pap 28 04/20/18 01:37 76 21 99 Facial 28 04/20/18 01:35 78 18 94 Nasal Cannula 2.0 28 04/20/18 01:30 98.1 04/20/18 00:00 98.1 98 20 143/64 (90) 96 98.1 04/19/18 21:39 64 22 99 Facial 28 04/19/18 21:00 Nasal Cannula 2.0 04/19/18 20:08 63 22 99 Facial 28 04/19/18 20:01 Nasal Cannula 2.0 28 04/19/18 20:01 63 18 99 Nasal Cannula 28 04/19/18 20:00 98.6 66 20 123/48 (73) 94 98.6 04/19/18 20:00 93 Nasal Cannula 2.0 28 04/19/18 19:59 69 18 93 Nasal Cannula 2.0 28 04/19/18 16:44 97.5 Intake and Output 04/19/18 04/20/18 19:00 07:00 Intake Total 240 ml 120 ml Output Total 600 ml Balance -360 ml 120 ml Intake Oral 240 ml 120 ml Output Urine Total 600 ml # Voids 3 1 # Bowel Movements 1 Objective morbidly obese General Appearance: no acute distress HEENT: atraumatic Respiratory/Chest: lungs clear Cardiovascular: normal rate Abdomen: soft, non tender Current Medications Medications (Trade) Dose Ordered Sig/Tessa Route PRN Reason Start Time Stop Time Status Last Admin Dose Admin Acetaminophen (Tylenol) 650 mg Q4H PRN ORAL Mild Pain/Temp > 100.5 04/15/18 18:00 05/15/18 17:59 04/16/18 23:56 Acetaminophen/ Hydrocodone Bitart ([place] 10/325) 1 tab Q8H PRN ORAL PAIN 4-10 04/15/18 18:00 04/22/18 15:59 04/20/18 10:38 Albuterol/ Ipratropium (Albuterol/ Ipratropium) 3 ml Q6HRT HHN 04/15/18 19:00 04/20/18 18:59 04/20/18 12:24 Aspirin (ASA) 81 mg DAILY NG 04/16/18 09:00 05/16/18 08:59 04/20/18 08:04 Atorvastatin Calcium (Lipitor) 40 mg QHS ORAL 04/15/18 21:00 05/15/18 20:59 04/19/18 21:58 Bisacodyl (Dulcolax) 10 mg DAILYPRN PRN RECTAL Constipation 04/18/18 19:00 05/18/18 18:59 04/20/18 08:06 Citalopram Hydrobromide (celeXA) 40 mg DAILY ORAL 04/16/18 09:00 05/16/18 08:59 04/20/18 08:05 Clopidogrel Bisulfate (Plavix) 75 mg DAILY ORAL 04/16/18 09:00 05/16/18 08:59 04/20/18 08:06 Cyanocobalamin (Vitamin B-12) 2,500 mcg DAILY ORAL 04/16/18 09:00 05/16/18 08:59 04/20/18 08:06 Dextrose (Dextrose 50%) 25 ml STAT PRN IV Hypoglycemia 04/15/18 16:15 05/15/18 16:14 Dextrose (Dextrose 50%) 50 ml STAT PRN IV Hypoglycemia 04/15/18 16:15 05/15/18 16:14 Furosemide (Lasix) 20 mg EVERY 12 HOURS IV 04/15/18 21:00 05/15/18 20:59 04/20/18 08:04 Insulin Aspart (NovoLOG) BEFORE MEALS AND HS SUBQ 04/15/18 16:30 05/15/18 16:29 04/20/18 12:36 Insulin Aspart (NovoLOG) 2 units NOVOTIAC SUBQ 04/17/18 11:50 05/17/18 11:49 04/20/18 06:46 Insulin Detemir (Levemir) 20 units BEDTIME SUBQ 04/17/18 21:00 05/17/18 20:59 04/19/18 22:02 Lactulose (Cephulac) 30 gm Q6H PRN ORAL Constipation 04/15/18 16:00 05/15/18 15:59 04/17/18 15:01 Levofloxacin (Levaquin) 500 mg Q24H ORAL 04/16/18 17:00 04/23/18 16:59 04/19/18 16:43 Losartan Potassium (Cozaar) 25 mg DAILY ORAL 04/16/18 09:00 05/16/18 08:59 04/20/18 08:05 Metformin HCl (Glucophage) 500 mg TIAC ORAL 04/16/18 06:30 05/16/18 06:29 04/20/18 12:35 Metronidazole (Flagyl) 500 mg EVERY 8 HOURS ORAL 04/15/18 22:00 04/22/18 21:59 04/20/18 14:57 Ondansetron HCl (Zofran) 4 mg Q6H PRN IV Nausea & Vomiting 04/17/18 09:00 05/17/18 08:59 04/18/18 08:40 Oxybutynin Chloride (Ditropan) 10 mg DAILY ORAL 04/16/18 09:00 05/16/18 08:59 04/20/18 08:06 Sodium Phosphate (Fleet's Sodium Phosl Enema) 133 ml DAILY@2100 RECTAL 04/18/18 21:00 05/18/18 20:59 04/19/18 22:44 Sodium Phosphate (Fleet's Sodium Phosl Enema) 133 ml DAILYPRN PRN RECTAL Constipation 04/18/18 20:00 05/18/18 19:59 Marcus Garcia MD Apr 20, 2018 16:34
[2018-04-20] MEDS: Levofloxacin 500mg tab ORAL SCH (17:29)
[2018-04-20 20:00] VITALS: BP 139/59
[2018-04-20] MEDS: Fleet's Enema 133ml RECTAL SCH (21:09)
[2018-04-20] MEDS: Atorvastatin 20mg tab ORAL SCH (21:12)
[2018-04-20] MEDS: Levemir Flexpen SUBQ SCH (21:14)
[2018-04-21] VITALS (13 sets, daily range): BP systolic 61–152; BP diastolic 35–94
[2018-04-21] MEDS: HYDROcodone/Acetamin 10/325 tab ORAL PRN (04:08)
[2018-04-21] MEDS ORDERED: Morphine Sulfate 2mg/ml Inj(IV/IM USE ONLY) IVP PRN ×2 (05:15)
[2018-04-21] MEDS: metFORMIN 500mg tab ORAL SCH ×3 (06:38→16:30)
[2018-04-21] MEDS: metroNIDAZOLE 500mg tab ORAL SCH (06:39)
[2018-04-21] MEDS: NovoLOG Insulin Flexpen SUBQ SCH ×7 (06:40→21:00)
--- NOTE | 2018-04-21 09:05 | Diagnostic Imaging Report ---
Indication: Reason For Exam: SOB Technique: One view of the chest Comparison: 04/18/2018 Findings: Body habitus limits evaluation. Prominent pericardial fat pad on the left is again demonstrated. No definite acute infiltrates or congestion. Previously demonstrated congestive changes appear improved. There is equivocally slight blunting of the left costophrenic sulcus. The left lateral hemidiaphragm is not visible the heart remains enlarged. Impression: No definite acute parenchymal cyst Suspect persistent bilateral pleural effusions
[2018-04-21] MEDS ORDERED: Isovue-300 100ml vial INJ PRN ×2 (09:30→10:00)
--- NOTE | 2018-04-21 09:36 | Pulmonology Progress Note ---
Assessment/Plan Assessment/Plan 1. Acute respiratory failure. 2. Pneumonia with sepsis. 3. COPD 4. Multiple sclerosis. 5. DNR status. 6. Diabetes. 7. Morbid obesity. 8. Marked leukopenia. 9. Chronic kidney disease stage 3. 10. Hyperproteinemia. 11. Probable diastolic heart failure. 12. acute abd pain 13. Rapid A fib rapid A fib - transferred to [facility] abd pain and tender low sat, now on BiPAP labs pdg cont abx stat CT A/P cardiology, IV heparin Subjective Respiratory: Reports: productive cough, shortness of breath Gastrointestinal/Abdominal: Reports: nausea - pain Allergies: Coded Allergies: ADHESIVE TAPE (Verified Allergy, Unknown, 04/15/18) CEPHALEXIN (Verified Allergy, Unknown, 04/15/18) PENICILLINS (Verified Allergy, Unknown, 04/15/18) Uncoded Allergies: PENICILLIN (Allergy, Unknown, 04/15/18) PLAS (Allergy, Unknown, 04/15/18) Objective Last 24 Hour Vital Signs Date Time Temp Pulse Resp B/P (MAP) Pulse Ox O2 Delivery O2 Flow Rate FiO2 04/21/18 08:29 98.4 146 32 112/48 (69) 95 98.4 04/21/18 04:00 97.7 91 19 146/77 (100) 92 97.7 04/21/18 00:58 20 92 3.0 32 04/21/18 00:00 99.7 76 19 152/68 (96) 96 99.7 04/20/18 23:20 70 23 92 45 04/20/18 21:00 Nasal Cannula 2.0 04/20/18 20:10 76 20 Nasal Cannula 2.0 28 04/20/18 20:09 Nasal Cannula 2.0 28 04/20/18 20:09 76 20 Nasal Cannula 2.0 28 04/20/18 20:08 90 Nasal Cannula 2.0 28 04/20/18 20:00 98.4 73 19 139/59 (85) 93 98.4 04/20/18 15:43 97.7 80 20 144/63 (90) 92 97.7 04/20/18 12:32 65 18 97 Nasal Cannula 2.0 28 04/20/18 12:24 68 20 92 Nasal Cannula 2.0 28 04/20/18 12:00 97.4 76 20 124/56 (78) 96 97.4 04/20/18 11:37 97.4 04/20/18 10:38 95.0 Intake and Output 04/20/18 04/21/18 19:00 07:00 Intake Total 360 ml Output Total 450 ml Balance -90 ml Intake Oral 360 ml Output Urine Total 450 ml # Voids 2 Objective morbidly obese General Appearance: other - resp distress; on BiPAP HEENT: atraumatic Respiratory/Chest: lungs clear, decreased breath sounds Cardiovascular: tachycardia, irregularly irregular Abdomen: guarding, tender - RLQ Current Medications Medications (Trade) Dose Ordered Sig/Tessa Route PRN Reason Start Time Stop Time Status Last Admin Dose Admin Acetaminophen (Tylenol) 650 mg Q4H PRN ORAL Mild Pain/Temp > 100.5 04/15/18 18:00 05/15/18 17:59 04/21/18 01:50 Acetaminophen/ Hydrocodone Bitart ([place] 10/325) 1 tab Q8H PRN ORAL PAIN 4-6 04/21/18 10:00 04/22/18 15:59 Aspirin (ASA) 81 mg DAILY NG 04/16/18 09:00 05/16/18 08:59 04/20/18 08:04 Atorvastatin Calcium (Lipitor) 40 mg QHS ORAL 04/15/18 21:00 05/15/18 20:59 04/20/18 21:12 Bisacodyl (Dulcolax) 10 mg DAILYPRN PRN RECTAL Constipation 04/18/18 19:00 05/18/18 18:59 04/20/18 08:06 Citalopram Hydrobromide (celeXA) 40 mg DAILY ORAL 04/16/18 09:00 05/16/18 08:59 04/20/18 08:05 Clopidogrel Bisulfate (Plavix) 75 mg DAILY ORAL 04/16/18 09:00 05/16/18 08:59 04/20/18 08:06 Cyanocobalamin (Vitamin B-12) 2,500 mcg DAILY ORAL 04/16/18 09:00 05/16/18 08:59 04/20/18 08:06 Dextrose (Dextrose 50%) 25 ml STAT PRN IV Hypoglycemia 04/15/18 16:15 05/15/18 16:14 Dextrose (Dextrose 50%) 50 ml STAT PRN IV Hypoglycemia 04/15/18 16:15 05/15/18 16:14 Furosemide (Lasix) 20 mg EVERY 12 HOURS IV 04/15/18 21:00 05/15/18 20:59 04/20/18 21:09 Insulin Aspart (NovoLOG) BEFORE MEALS AND HS SUBQ 04/15/18 16:30 05/15/18 16:29 04/21/18 06:40 Insulin Aspart (NovoLOG) 2 units NOVOTIAC SUBQ 04/17/18 11:50 05/17/18 11:49 04/21/18 06:42 Insulin Detemir (Levemir) 20 units BEDTIME SUBQ 04/17/18 21:00 05/17/18 20:59 04/20/18 21:14 Lactulose (Cephulac) 30 gm Q6H PRN ORAL Constipation 04/15/18 16:00 05/15/18 15:59 04/17/18 15:01 Levofloxacin (Levaquin) 500 mg Q24H ORAL 04/16/18 17:00 04/23/18 16:59 04/20/18 17:29 Losartan Potassium (Cozaar) 25 mg DAILY ORAL 04/16/18 09:00 05/16/18 08:59 04/20/18 08:05 Metformin HCl (Glucophage) 500 mg TIAC ORAL 04/16/18 06:30 05/16/18 06:29 04/21/18 06:38 Metronidazole (Flagyl) 500 mg EVERY 8 HOURS ORAL 04/15/18 22:00 04/22/18 21:59 04/21/18 06:39 Morphine Sulfate (Morphine Sulfate) 2 mg Q3H PRN IVP Severe Pain (Pain Scale 7-10) 04/21/18 05:15 04/28/18 05:14 04/21/18 05:35 Ondansetron HCl (Zofran) 4 mg Q6H PRN IV Nausea & Vomiting 04/17/18 09:00 05/17/18 08:59 04/18/18 08:40 Oxybutynin Chloride (Ditropan) 10 mg DAILY ORAL 04/16/18 09:00 05/16/18 08:59 04/20/18 08:06 Sodium Chloride 1,000 ml @ 75 mls/hr [id number] IV 04/21/18 05:15 05/21/18 05:14 04/21/18 05:42 Sodium Phosphate (Fleet's Sodium Phosl Enema) 133 ml DAILY@2100 RECTAL 04/18/18 21:00 05/18/18 20:59 04/20/18 21:09 Sodium Phosphate (Fleet's Sodium Phosl Enema) 133 ml DAILYPRN PRN RECTAL Constipation 04/18/18 20:00 05/18/18 19:59 Marcus Garcia MD Apr 21, 2018 09:36
[2018-04-21] MEDS ORDERED: Heparin 5000 units/ml inj SUBQ SCH (09:40)
[2018-04-21] MEDS ORDERED: Heparin 5000 units/ml inj IV ONE ×2 (09:45)
[2018-04-21] MEDS ORDERED: HYDROcodone/Acetamin 10/325 tab ORAL PRN ×2 (10:00)
[2018-04-21] MEDS ORDERED: Fleet's Enema 133ml RECTAL PRN (10:00)
[2018-04-21] MEDS ORDERED: Lactulose 20gm/30ml UDC ORAL PRN (10:00)
[2018-04-21] MEDS ORDERED: Heparin 25,000u/D5W 500ml 500 ML IV SCH ×2 (10:00)
[2018-04-21] MEDS: Morphine Sulfate 2mg/ml Inj(IV/IM USE ONLY) IVP PRN (10:12)
--- NOTE | 2018-04-21 10:34 | Diagnostic Imaging Report ---
. Indication: Abdominal pain Technique: Supine view of the abdomen Comparison: None Findings: At least 2 considerably dilated mid abdominal small bowel loops, probably jejunum, are demonstrated. Gas is seen in the ascending colon. Surgical staple lines are seen in the region of the stomach Impression: Considerably dilated mid abdominal small bowel loops, likely proximal. This raises concern for small bowel obstruction. Correlation with clinical findings is recommended Evidence of prior gastric surgery Critical value findings phoned to Dr. Garcia at the time of interpretation
[2018-04-21 10:43] LABS: ALANINE AMINOTRANSFERASE 20 U/L (12-78); ALBUMIN 2.2 G/DL (3.4-5.0); ALBUMIN/GLOBULIN RATIO 0.4 (1.0-2.7); ALKALINE PHOSPHATASE 109 U/L (46-116); ANION GAP 17 mmol/L (5-15); ASPARTATE AMINO TRANSFERASE 29 U/L (15-37); BILIRUBIN,TOTAL 1.4 MG/DL (0.2-1.0); BLOOD UREA NITROGEN 89 mg/dL (7-18); CALCIUM 8.2 MG/DL (8.5-10.1); CARBON DIOXIDE 22 MMOL/L (21-32); CHLORIDE 98 MMOL/L (98-107); CREATININE 2.9 MG/DL (0.55-1.30); POTASSIUM 4.2 MMOL/L (3.5-5.1); SODIUM 136 MMOL/L (136-145)
[2018-04-21 10:44] LABS: BILIRUBIN,DIRECT 0.7 MG/DL (0.0-0.3)
--- NOTE | 2018-04-21 13:20 | Infectious Diseases Prog Note ---
Assessment/Plan Assessment/Plan ASSESSMENT AND PLAN: 1. sepsis, pna, fevers, leukopenia, sirs, elevated lactic acid, af, rvr, bipap - change to clindamycin and aztreonam secondary to a.fib with rapid response (levofloxacin proarrhythmic drug) - monitor labs and chest x-ray, f/u on serology - d/w patient and 2. Per the records, history of multiple sclerosis. 3. The patient is DNR. 4. The patient has history of multiple contusions and falls. 5. Diabetes. 6. Hypertension. 7. Peripheral neuropathy. 8. History of diabetic foot ulcer. 9. Skin care protocol. 10. Chronic obstructive pulmonary disease. 11. History of anemia and thrombocytopenia. 12. Leukopenia. 13. History of fractures. 14. Sleep apnea. 15. Obesity. 16. Osteoarthritis. 17. Chronic back pain. 18. Hypertension, diabetes. Treatment per primary. 19. Chronic kidney disease. 20. Past medical history as noted. 21. Allergies to adhesive tape, cephalexin, penicillin, and plastics. 22. Social history is negative. 23. Family history is noncontributory. 24. MAR was noted. 25. Case was discussed with RN. 26. Continue treatment per primary consultants. 27. The patient has history of bariatric surgery and also major depression. Subjective Constitutional: Reports: fatigue, other - on bipa, telemetry for af; Denies: fever HEENT: Reports: congestion Respiratory: Reports: shortness of breath, other - + bipap Cardiovascular: Denies: chest pain Gastrointestinal/Abdominal: Denies: nausea, vomiting, diarrhea Genitourinary: Reports: other - no pascual; Denies: dysuria, hematuria, frequency Skin: Denies: rash Hematologic: Denies: bleeding Musculoskeletal: Denies: pain Allergies: Coded Allergies: ADHESIVE TAPE (Verified Allergy, Unknown, 04/15/18) CEPHALEXIN (Verified Allergy, Unknown, 04/15/18) PENICILLINS (Verified Allergy, Unknown, 04/15/18) Uncoded Allergies: PLAS (Allergy, Unknown, 04/15/18) Objective Vital Signs Last 24 Hour Vital Signs Date Time Temp Pulse Resp B/P (MAP) Pulse Ox O2 Delivery O2 Flow Rate FiO2 04/21/18 11:26 110 04/21/18 10:42 98.4 04/21/18 10:40 74 35 95 Facial 45 04/21/18 10:09 112/48 04/21/18 09:37 60 34 90 04/21/18 09:03 55 38 88 Facial 50 04/21/18 08:30 Nasal Cannula 2.0 04/21/18 08:29 98.4 146 32 112/48 (69) 95 98.4 04/21/18 06:30 140 34 90 Facial 45 04/21/18 06:30 Bi-pap 45 04/21/18 06:30 90 Bi-pap 45 04/21/18 04:00 97.7 91 19 146/77 (100) 92 97.7 04/21/18 00:58 20 92 3.0 32 04/21/18 00:00 99.7 76 19 152/68 (96) 96 99.7 04/20/18 23:20 70 23 92 45 04/20/18 21:00 Nasal Cannula 2.0 04/20/18 20:10 76 20 Nasal Cannula 2.0 28 04/20/18 20:09 Nasal Cannula 2.0 28 04/20/18 20:09 76 20 Nasal Cannula 2.0 28 04/20/18 20:08 90 Nasal Cannula 2.0 28 04/20/18 20:00 98.4 73 19 139/59 (85) 93 98.4 04/20/18 15:43 97.7 80 20 144/63 (90) 92 97.7 Height (Feet): 5 Height (Inches): 8.00 Weight (Pounds): 285 General Appearance: other - + sob and bipap HEENT: normocephalic, atraumatic, anicteric Respiratory/Chest: decreased breath sounds, crackles/rales, rhonchi - bilaterally Cardiovascular: normal rate, regular rhythm, no gallop/murmur, no JVD Abdomen: normal bowel sounds, soft, non tender, no organomegaly, non distended Genitourinary: other - no pascual Extremities: no cyanosis Skin: no rash 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 Left-sided pleural fluid appears unchanged. The heart remains enlarged. Impression: Minimally improved airspace edema and interstitial congestion, over one day Stable left pleural effusion Chest x-ray - 04/18 - IMPRESSION: 1. There has been interval significant improvement in the appearance of the layering left pleural effusion. 2. Persistent increased interstitial markings. Differential diagnosis includes pulmonary vascular congestion, bronchitis, and interstitial 04/21 - chest x-ray: Findings: Body habitus limits evaluation. Prominent pericardial fat pad on the left is again demonstrated. No definite acute infiltrates or congestion. Previously demonstrated congestive changes appear improved. There is equivocally slight blunting of the left costophrenic sulcus. The left lateral hemidiaphragm is not visible the heart remains enlarged. Impression: No definite acute parenchymal cyst Suspect persistent bilateral pleural effusions Microbiology Date/Time Source Procedure Growth Status 04/15/18 18:00 Blood Blood Culture - Final NO GROWTH AFTER 5 DAYS Complete 04/15/18 23:00 Sputum Induced Gram Stain - Final Complete 04/15/18 23:00 Sputum Induced Sputum Culture - Final NORMAL UPPER RESPIRATORY VIJAYA AT 50 ... Complete 04/15/18 20:40 Urine,Clean Catch Urine Culture - Final Mixed Gram Positive Organism Complete 04/15/18 09:55 Rectum VRE Culture - Final NO VANCOMYCIN RESISTANT ENTEROCOCCUS ... Complete Labs Test 04/19/18 05:00 04/21/18 10:00 White Blood Count 10.2 K/UL (4.8-10.8) Red Blood Count 3.87 M/UL (4.70-6.10) Hemoglobin 12.1 G/DL (14.2-18.0) Hematocrit 35.9 % (42.0-52.0) Mean Corpuscular Volume 93 FL (80-99) Mean Corpuscular Hemoglobin 31.2 PG (27.0-31.0) Mean Corpuscular Hemoglobin Concent 33.6 G/DL (32.0-36.0) Red Cell Distribution Width 12.1 % (11.6-14.8) Platelet Count 235 K/UL (150-450) Mean Platelet Volume 7.1 FL (6.5-10.1) Neutrophils (%) (Auto) % (45.0-75.0) Lymphocytes (%) (Auto) % (20.0-45.0) Monocytes (%) (Auto) % (1.0-10.0) Eosinophils (%) (Auto) % (0.0-3.0) Basophils (%) (Auto) % (0.0-2.0) Differential Total Cells Counted 100 Neutrophils % (Manual) 89 % (45-75) Lymphocytes % (Manual) 7 % (20-45) Monocytes % (Manual) 4 % (1-10) Eosinophils % (Manual) 0 % (0-3) Basophils % (Manual) 0 % (0-2) Band Neutrophils 0 % (0-8) Platelet Estimate Adequate Platelet Morphology Normal Red Blood Cell Morphology Normal Sodium Level 135 MMOL/L (136-145) 136 MMOL/L (136-145) Potassium Level 3.7 MMOL/L (3.5-5.1) 4.2 MMOL/L (3.5-5.1) Chloride Level 97 MMOL/L (98-107) 98 MMOL/L (98-107) Carbon Dioxide Level 30 MMOL/L (21-32) 22 MMOL/L (21-32) Anion Gap 8 mmol/L (5-15) 17 mmol/L (5-15) Blood Urea Nitrogen 52 mg/dL (7-18) 89 mg/dL (7-18) Creatinine 1.7 MG/DL (0.55-1.30) 2.9 MG/DL (0.55-1.30) Estimat Glomerular Filtration Rate 40.7 mL/min (>60) 21.9 mL/min (>60) Glucose Level 172 MG/DL (74-106) 196 MG/DL (74-106) Calcium Level 8.8 MG/DL (8.5-10.1) 8.2 MG/DL (8.5-10.1) Total Bilirubin 0.5 MG/DL (0.2-1.0) 1.4 MG/DL (0.2-1.0) Aspartate Amino Transf (AST/SGOT) 18 U/L (15-37) 29 U/L (15-37) Alanine Aminotransferase (ALT/SGPT) 14 U/L (12-78) 20 U/L (12-78) Alkaline Phosphatase 71 U/L (46-116) 109 U/L (46-116) Total Protein 7.3 G/DL (6.4-8.2) 7.1 G/DL (6.4-8.2) Albumin 2.4 G/DL (3.4-5.0) 2.2 G/DL (3.4-5.0) Globulin 4.9 g/dL 4.9 g/dL Albumin/Globulin Ratio 0.5 (1.0-2.7) 0.4 (1.0-2.7) Direct Bilirubin 0.7 MG/DL (0.0-0.3) Laboratory Tests Test 04/21/18 10:00 Sodium Level 136 MMOL/L (136-145) Potassium Level 4.2 MMOL/L (3.5-5.1) Chloride Level 98 MMOL/L (98-107) Carbon Dioxide Level 22 MMOL/L (21-32) Anion Gap 17 mmol/L (5-15) H Blood Urea Nitrogen 89 mg/dL (7-18) H Creatinine 2.9 MG/DL (0.55-1.30) H Estimat Glomerular Filtration Rate 21.9 mL/min (>60) Glucose Level 196 MG/DL (74-106) H Calcium Level 8.2 MG/DL (8.5-10.1) L Total Bilirubin 1.4 MG/DL (0.2-1.0) H Direct Bilirubin 0.7 MG/DL (0.0-0.3) H Aspartate Amino Transf (AST/SGOT) 29 U/L (15-37) Alanine Aminotransferase (ALT/SGPT) 20 U/L (12-78) Alkaline Phosphatase 109 U/L (46-116) Total Protein 7.1 G/DL (6.4-8.2) Albumin 2.2 G/DL (3.4-5.0) L Globulin 4.9 g/dL Albumin/Globulin Ratio 0.4 (1.0-2.7) L Current Medications Medications (Trade) Dose Ordered Sig/Tessa Route PRN Reason Start Time Stop Time Status Last Admin Dose Admin Acetaminophen (Tylenol) 650 mg Q4H PRN ORAL Mild Pain/Temp > 100.5 04/21/18 10:00 05/15/18 17:59 Acetaminophen/ Hydrocodone Bitart ([place] 10/325) 1 tab Q8H PRN ORAL Moderate Pain (Pain Scale 4-6) 04/21/18 10:00 04/22/18 15:59 Aspirin (ASA) 81 mg DAILY ORAL 04/22/18 09:00 05/16/18 08:59 04/21/18 10:10 Atorvastatin Calcium (Lipitor) 40 mg QHS ORAL 04/21/18 21:00 05/15/18 20:59 Aztreonam 1 gm/ Dextrose 55 ml @ 110 mls/hr Q8HR IVPB 04/21/18 14:00 04/28/18 13:59 UNV Barium Sulfate (Readi-Cat 2) 450 ml NOW PRN ORAL Radiology Procedure 04/21/18 10:00 04/23/18 09:59 Barium Sulfate (Readi-Cat 2) 450 ml NOW PRN ORAL Radiology Procedure 04/21/18 10:45 04/23/18 10:33 Bisacodyl (Dulcolax) 10 mg DAILYPRN PRN RECTAL Constipation 04/21/18 10:00 05/21/18 09:59 Citalopram Hydrobromide (celeXA) 40 mg DAILY ORAL 04/22/18 09:00 05/16/18 08:59 04/21/18 10:09 Clindamycin HCl/ Dextrose 50 ml @ 100 mls/hr Q6HR IVPB 04/21/18 18:00 04/28/18 17:59 UNV Clopidogrel Bisulfate (Plavix) 75 mg DAILY ORAL 04/22/18 09:00 05/16/18 08:59 04/21/18 10:09 Cyanocobalamin (Vitamin B-12) 2,500 mcg DAILY ORAL 04/22/18 09:00 05/16/18 08:59 Dextrose (Dextrose 50%) 25 ml STAT PRN IV Hypoglycemia 04/21/18 10:00 05/15/18 09:59 Dextrose (Dextrose 50%) 50 ml STAT PRN IV Hypoglycemia 04/21/18 10:00 05/15/18 09:59 Heparin Sodium/ Dextrose 500 ml @ 46.539 mls/ hr adjust per protocol IV 04/21/18 10:00 05/21/18 09:59 Insulin Aspart (NovoLOG) BEFORE MEALS AND HS SUBQ 04/21/18 11:30 05/15/18 16:29 Insulin Aspart (NovoLOG) 2 units NOVOTIAC SUBQ 04/21/18 11:50 05/17/18 11:49 Insulin Detemir (Levemir) 20 units BEDTIME SUBQ 04/21/18 21:00 05/17/18 20:59 Iopamidol (Isovue-300 100ml) 100 ml NOW PRN INJ Radiology Procedure 04/21/18 10:00 04/23/18 09:59 Lactulose (Cephulac) 30 gm Q6H PRN ORAL Constipation 04/21/18 10:00 05/15/18 15:59 Losartan Potassium (Cozaar) 25 mg DAILY ORAL 04/22/18 09:00 05/16/18 08:59 04/21/18 10:09 Metformin HCl (Glucophage) 500 mg TIAC ORAL 04/21/18 11:30 05/16/18 06:29 Morphine Sulfate (Morphine Sulfate) 2 mg Q3H PRN IVP Severe Pain (Pain Scale 7-10) 04/21/18 10:00 04/28/18 09:59 04/21/18 10:12 Ondansetron HCl (Zofran) 4 mg Q6H PRN IV Nausea & Vomiting 04/21/18 10:00 05/17/18 09:59 Oxybutynin Chloride (Ditropan) 10 mg DAILY ORAL 04/22/18 09:00 05/16/18 08:59 04/21/18 10:08 Sodium Chloride 1,000 ml @ 75 mls/hr [id number] IV 04/21/18 10:00 05/21/18 09:59 Sodium Phosphate (Fleet's Sodium Phosl Enema) 133 ml DAILY@2100 RECTAL 04/21/18 21:00 05/18/18 20:59 Sodium Phosphate (Fleet's Sodium Phosl Enema) 133 ml DAILYPRN PRN RECTAL Constipation 04/21/18 10:00 05/18/18 09:59 Annamarie Wells MD Apr 21, 2018 13:20
[2018-04-21] MEDS ORDERED: metroNIDAZOLE 500mg tab ORAL SCH (14:00)
--- NOTE | 2018-04-21 14:29 | Diagnostic Imaging Report ---
Indication: Abdominal distention Technique: Spiral acquisitions obtained through the abdomen and pelvis. Patient given oral contrast. No IV contrast utilized, per referring physician request.. Multiplanar reconstructions were generated. Total dose length product 1908.99 mGycm. CTDIvol(s) 19.75,19.95 mGy. Dose reduction achieved using automated exposure control Comparison: None Findings: Patient is status post gastric bypass surgery and gastrojejunostomy. The jejunum exiting the stomach is markedly dilated. The isolated portion of the stomach, as well as the [place] duodenum and proximal jejunum are likewise dilated. The dilatation of both limbs extends to the level of a Liban-en-Y anastomosis in the anterior upper abdomen. Distal to this, small bowel is nondilated. The dilated loops are fluid-filled, and there is considerable retained contrast within the gastric lumen. The distal esophagus is also dilated, contrast filled, and there appears to be patulousness of the lower esophageal sphincter with free communication of gastric contents with the distal esophagus. There is colonic diverticulosis. No evidence of diverticulitis. The proximal colon is stool-filled. The appendix is normal. There is a small to moderate amount of free intraperitoneal fluid. No free intraperitoneal gas. No mural gas. Lack of IV contrast limits assessment of the solid organs. The liver is somewhat atrophic in appearance and demonstrates surface nodularity. No definite focal abnormality. The gallbladder, bile ducts are unremarkable. The pancreas is atrophic and fatty replaced. The spleen and adrenals are unremarkable. The kidneys are slightly atrophic. A calcification in the left renal sinus may be arterial or calyceal. No ureteral calculi or hydroureter demonstrated. The bladder is unremarkable. The prostate and seminal vesicles are unremarkable. Included lung bases demonstrate a small right pleural effusion. There is fairly extensive atelectasis and consolidation of the visualized portions of the right lower lobe. There is less extensive atelectasis and consolidation of portions of the left lower lobe. There is a pericardial effusion which posteriorly measures up to 17 mm in diameter. The bones demonstrate degenerative spondylosis changes Impression: Evidence of proximal small bowel obstruction and patient who is status post gastric bypass surgery with gastrojejunostomy. Point of obstruction is appears to be the distal Liban-en-Y anastomosis, with the small bowel distal to the anastomosis nondilated. Distention involves the patent gastric lumen, the gastrojejunostomy limb, as well as the excluded portion of the stomach and the [place] duodenum and proximal jejunum Dilated distal esophagus, with apparent patulous lower esophageal sphincter and free communication between the gastric and esophageal lumen Considerable right lower lobe consolidation and atelectasis. Less extensive left lower lobe pulmonary consolidation and atelectasis. Small right pleural effusion Pericardial effusion Colonic diverticulosis. No evidence of diverticulitis Small to moderate ascites fluid Evidence of hepatic cirrhosis, with hepatic surface nodularity and mild atrophy Atrophic fatty replaced pancreas Slightly atrophic kidneys Possible nonobstructive left renal calyceal calculus, versus arterial calcification Critical value findings phoned to Dr. Garcia at the time of interpretation The CT scanner at [facility] is accredited by the [place] [employer] and the scans are performed using protocols designed to limit radiation exposure to as low as reasonably achievable to attain images of sufficient resolution adequate for diagnostic evaluation.
--- NOTE | 2018-04-21 15:18 | General Progress Note ---
Assessment/Plan Assessment/Plan GI CONSULT Dictated Assessment - Distal SBO, at JJ site versus internal hernia - TTP diffuse abd exam, concerning - Resp failure - Renal failure - Obesity - MS - Poor prognosis Recommendations - NPO - IVF - Urgent surgical evaluation - NGT typically not used in ANKIT patients - will defer to surgery - abx - follow labs Thank you Ya Khan MD Subjective Allergies: Coded Allergies: ADHESIVE TAPE (Verified Allergy, Unknown, 04/15/18) CEPHALEXIN (Verified Allergy, Unknown, 04/15/18) PENICILLINS (Verified Allergy, Unknown, 04/15/18) Uncoded Allergies: PLAS (Allergy, Unknown, 04/15/18) Objective Last 24 Hour Vital Signs Date Time Temp Pulse Resp B/P (MAP) Pulse Ox O2 Delivery O2 Flow Rate FiO2 04/21/18 12:33 53 34 93 Facial 45 04/21/18 12:00 97.7 87 26 97/57 (70) 90 97.7 04/21/18 11:26 110 04/21/18 10:42 98.4 04/21/18 10:40 74 35 95 Facial 45 04/21/18 10:09 112/48 04/21/18 09:37 60 34 90 04/21/18 09:03 55 38 88 Facial 50 04/21/18 08:30 Nasal Cannula 2.0 04/21/18 08:29 98.4 146 32 112/48 (69) 95 98.4 04/21/18 06:30 140 34 90 Facial 45 04/21/18 06:30 Bi-pap 45 04/21/18 06:30 90 Bi-pap 45 04/21/18 04:00 97.7 91 19 146/77 (100) 92 97.7 04/21/18 00:58 20 92 3.0 32 04/21/18 00:00 99.7 76 19 152/68 (96) 96 99.7 04/20/18 23:20 70 23 92 45 04/20/18 21:00 Nasal Cannula 2.0 04/20/18 20:10 76 20 Nasal Cannula 2.0 28 04/20/18 20:09 Nasal Cannula 2.0 28 04/20/18 20:09 76 20 Nasal Cannula 2.0 28 04/20/18 20:08 90 Nasal Cannula 2.0 28 04/20/18 20:00 98.4 73 19 139/59 (85) 93 98.4 04/20/18 15:43 97.7 80 20 144/63 (90) 92 97.7 Intake and Output 04/20/18 04/21/18 19:00 07:00 Intake Total 360 ml Output Total 450 ml Balance -90 ml Intake Oral 360 ml Output Urine Total 450 ml # Voids 2 Laboratory Tests 04/21/18 10:00: Sodium Level 136, Potassium Level 4.2, Chloride Level 98, Carbon Dioxide Level 22, Anion Gap 17H, Blood Urea Nitrogen 89H, Creatinine 2.9H, Estimat Glomerular Filtration Rate 21.9, Glucose Level 196H, Calcium Level 8.2L, Total Bilirubin 1.4H, Direct Bilirubin 0.7H, Aspartate Amino Transf (AST/SGOT) 29, Alanine Aminotransferase (ALT/SGPT) 20, Alkaline Phosphatase 109, Total Protein 7.1, Albumin 2.2L, Globulin 4.9, Albumin/Globulin Ratio 0.4L Height (Feet): 5 Height (Inches): 8.00 Weight (Pounds): 285 Kimberly Khan MD Apr 21, 2018 15:18
--- NOTE | 2018-04-21 15:30 | Pre-Procedure Note/Attestation ---
Pre-Procedure Note/Attestation Complete Prior to Procedure Planned Procedure: not applicable Procedure Narrative: diagnostic laparoscopy, possible exploratory laparotomy, possible bowel resection, possible ostomy Indications for Procedure Pre-Operative Diagnosis: small bowel obstruction, peritonitis Attestation I attest that I discussed the nature of the procedure; its benefits; risks and complications; and alternatives (and the risks and benefits of such alternatives ), prior to the procedure, with the patient (or the patient's legal wine sales representative). I attest that, if there was a reasonable possibility of needing a blood transfusion, the patient (or the patient's legal wine sales representative) was given the [facility] standardized written summary, pursuant to the Kelby [place] Blood Safety Act ([place] Health and Safety Code # 1645, as amended). I attest that I re-evaluated the patient just prior to the surgery and that there has been no change in the patient's H&P, except as documented below: Shlomo Hollingsworth Apr 21, 2018 15:30
[2018-04-21] MEDS: Aztreonam Inj 1 GM in D5W 55 ML IVPB SCH ×2 (15:52→22:10)
[2018-04-21] MEDS ORDERED: Lidocaine 1% Plain 30 ml INJ PRN (16:30)
[2018-04-21] MEDS ORDERED: Heparin 2000 units/Ns 1000ml INJ PRN (16:30)
[2018-04-21] MEDS: Clindamycin 600mg 50 ML IV SCH ×2 (16:39→23:53)
[2018-04-21 16:51] LABS: HEMATOCRIT 38.8 % (42.0-52.0); HEMOGLOBIN 12.9 G/DL (14.2-18.0); MEAN CORPUSCULAR VOLUME 93 FL (80-99); PLATELET COUNT 348 K/UL (150-450); RED BLOOD COUNT 4.17 M/UL (4.70-6.10); RED CELL DISTRIBUTION WIDTH 12.7 % (11.6-14.8); WHITE BLOOD COUNT 15.9 K/UL (4.8-10.8)
[2018-04-21] MEDS ORDERED: Levofloxacin 500mg tab ORAL SCH (17:00)
[2018-04-21 17:04] LABS: INR 1.3 (0.9-1.1)
[2018-04-21] MEDS ORDERED: Lidocaine 1% MPF 10mg/ml 5ml ONE (17:14)
[2018-04-21] MEDS ORDERED: Propofol 200mg/20ml IV ONE (17:14)
[2018-04-21] MEDS ORDERED: Sodium Chloride 10ml vial INJ ONE (17:14)
[2018-04-21 17:16] LABS: ANION GAP 13 mmol/L (5-15); BLOOD UREA NITROGEN 94 mg/dL (7-18); CALCIUM 8.1 MG/DL (8.5-10.1); CARBON DIOXIDE 25 MMOL/L (21-32); CHLORIDE 98 MMOL/L (98-107); CREATININE 3.4 MG/DL (0.55-1.30); POTASSIUM 4.1 MMOL/L (3.5-5.1); SODIUM 136 MMOL/L (136-145)
[2018-04-21] MEDS ORDERED: fentaNYL 100 mcg/2 mL IV ONE (17:16)
[2018-04-21 17:23] LABS: ALANINE AMINOTRANSFERASE 21 U/L (12-78); ALBUMIN 2.1 G/DL (3.4-5.0); ALBUMIN/GLOBULIN RATIO 0.5 (1.0-2.7); ALKALINE PHOSPHATASE 86 U/L (46-116); ASPARTATE AMINO TRANSFERASE 35 U/L (15-37)
--- NOTE | 2018-04-21 17:55 | Consultation ---
History of Present Illness General Date patient seen: Apr 21, 2018 Chief Complaint: Dyspnea/Respdistress Reason for Consultation: small bowel obstruction Present Illness HPI 67 year old male with multiple medical comorbidities currently admitted for respiratory condition and pneumonia. During admission began to have abdominal pain and distention. has not had flatus or BM for a few days now. intermittent nausea. during work up had KUB concerning for sbo followed by CT scan which demonstrated SBO. surgery called to evaluate. patient states that pain acutely worsened beginning this afternoon. has had some abdominal discomfort and distention for a few days but severity acutely worsened today. today's labs demonstrate leukocytosis 15k. on exam he was found to have peritonitis. of note, history of lap gastric declan-en-y gastric bypass years ago. initially lost 100 lbs but has gained most of it back since. Allergies: Coded Allergies: ADHESIVE TAPE (Verified Allergy, Unknown, 04/15/18) CEPHALEXIN (Verified Allergy, Unknown, 04/15/18) PENICILLINS (Verified Allergy, Unknown, 04/15/18) Uncoded Allergies: PLAS (Allergy, Unknown, 04/15/18) Medication History Scheduled Citalopram Hydrobromide* (Celexa*), 40 MG ORAL DAILY Ipratropium/Albuterol Sulfate (DuoNeb 0.5-3(2.5)mg/3ml), 3 ML HHN Q6HRT Oxycodone Hcl/Acetaminophen 7.5-325 (Oxycodon-Acetaminophen 7.5-325), 1 TAB ORAL Q4H Patient History History Provided By: Patient, Family Member, Medical Record, PMD Healthcare decision maker Resuscitation status Do Not Resuscitate Advanced Directive on File Past Medical/Surgical History Past Medical/Surgical History: (1) SBO (small bowel obstruction) (2) Hx of gastric bypass (3) Peritonitis (acute) generalized Review of Systems All Other Systems: negative except mentioned in HPI Physical Exam General Appearance: moderate distress Lines, tubes and drains: peripheral HEENT: mucous membranes moist Neck: normal inspection Respiratory/Chest: accessory muscle use, other - on BIPAP Cardiovascular/Chest: tachycardia Abdomen: hypoactive bowel sounds, distended, guarding, rebound, tender Extremities: trace edema Skin Exam: warm/dry Neurologic: alert, oriented x 3 Last 24 Hour Vital Signs Date Time Temp Pulse Resp B/P (MAP) Pulse Ox O2 Delivery O2 Flow Rate FiO2 04/21/18 16:00 98.0 76 28 144/94 (111) 91 98.0 04/21/18 12:33 53 34 93 Facial 45 04/21/18 12:00 97.7 87 26 97/57 (70) 90 97.7 04/21/18 11:26 110 04/21/18 10:42 98.4 04/21/18 10:40 74 35 95 Facial 45 04/21/18 10:09 112/48 04/21/18 09:37 60 34 90 04/21/18 09:03 55 38 88 Facial 50 04/21/18 08:30 Nasal Cannula 2.0 04/21/18 08:29 98.4 146 32 112/48 (69) 95 98.4 04/21/18 06:30 140 34 90 Facial 45 04/21/18 06:30 Bi-pap 45 04/21/18 06:30 90 Bi-pap 45 04/21/18 04:00 97.7 91 19 146/77 (100) 92 97.7 04/21/18 00:58 20 92 3.0 32 04/21/18 00:00 99.7 76 19 152/68 (96) 96 99.7 04/20/18 23:20 70 23 92 45 04/20/18 21:00 Nasal Cannula 2.0 04/20/18 20:10 76 20 Nasal Cannula 2.0 28 04/20/18 20:09 Nasal Cannula 2.0 28 04/20/18 20:09 76 20 Nasal Cannula 2.0 28 04/20/18 20:08 90 Nasal Cannula 2.0 28 04/20/18 20:00 98.4 73 19 139/59 (85) 93 98.4 Intake and Output 04/20/18 04/21/18 19:00 07:00 Intake Total 360 ml Output Total 450 ml Balance -90 ml Intake Oral 360 ml Output Urine Total 450 ml # Voids 2 Laboratory Tests Test 04/21/18 10:00 04/21/18 16:30 Sodium Level 136 MMOL/L (136-145) 136 MMOL/L (136-145) Potassium Level 4.2 MMOL/L (3.5-5.1) 4.1 MMOL/L (3.5-5.1) Chloride Level 98 MMOL/L (98-107) 98 MMOL/L (98-107) Carbon Dioxide Level 22 MMOL/L (21-32) 25 MMOL/L (21-32) Anion Gap 17 mmol/L (5-15) H 13 mmol/L (5-15) Blood Urea Nitrogen 89 mg/dL (7-18) H 94 mg/dL (7-18) H Creatinine 2.9 MG/DL (0.55-1.30) H 3.4 MG/DL (0.55-1.30) H Estimat Glomerular Filtration Rate 21.9 mL/min (>60) 18.3 mL/min (>60) Glucose Level 196 MG/DL (74-106) H 99 MG/DL (74-106) Calcium Level 8.2 MG/DL (8.5-10.1) L 8.1 MG/DL (8.5-10.1) L Total Bilirubin 1.4 MG/DL (0.2-1.0) H 1.0 MG/DL (0.2-1.0) Direct Bilirubin 0.7 MG/DL (0.0-0.3) H Aspartate Amino Transf (AST/SGOT) 29 U/L (15-37) 35 U/L (15-37) Alanine Aminotransferase (ALT/SGPT) 20 U/L (12-78) 21 U/L (12-78) Alkaline Phosphatase 109 U/L (46-116) 86 U/L (46-116) Total Protein 7.1 G/DL (6.4-8.2) 6.6 G/DL (6.4-8.2) Albumin 2.2 G/DL (3.4-5.0) L 2.1 G/DL (3.4-5.0) L Globulin 4.9 g/dL 4.5 g/dL Albumin/Globulin Ratio 0.4 (1.0-2.7) L 0.5 (1.0-2.7) L White Blood Count 15.9 K/UL (4.8-10.8) H Red Blood Count 4.17 M/UL (4.70-6.10) L Hemoglobin 12.9 G/DL (14.2-18.0) L Hematocrit 38.8 % (42.0-52.0) L Mean Corpuscular Volume 93 FL (80-99) Mean Corpuscular Hemoglobin 31.0 PG (27.0-31.0) Mean Corpuscular Hemoglobin Concent 33.2 G/DL (32.0-36.0) Red Cell Distribution Width 12.7 % (11.6-14.8) Platelet Count 348 K/UL (150-450) Mean Platelet Volume 6.8 FL (6.5-10.1) Neutrophils (%) (Auto) % (45.0-75.0) Lymphocytes (%) (Auto) % (20.0-45.0) Monocytes (%) (Auto) % (1.0-10.0) Eosinophils (%) (Auto) % (0.0-3.0) Basophils (%) (Auto) % (0.0-2.0) Neutrophils % (Manual) Pending Lymphocytes % (Manual) Pending Platelet Estimate Pending Platelet Morphology Pending Prothrombin Time 13.1 SEC (9.30-11.50) H Prothromb Time International Ratio 1.3 (0.9-1.1) H Activated Partial Thromboplast Time 30 SEC (23-33) Height (Feet): 5 Height (Inches): 8.00 Weight (Pounds): 285 Medications Current Medications Medications (Trade) Dose Ordered Sig/Tessa Route PRN Reason Start Time Stop Time Status Last Admin Dose Admin Acetaminophen (Tylenol) 650 mg Q4H PRN ORAL Mild Pain/Temp > 100.5 04/21/18 10:00 05/15/18 17:59 Acetaminophen/ Hydrocodone Bitart ([place] 10/325) 1 tab Q8H PRN ORAL Moderate Pain (Pain Scale 4-6) 04/21/18 10:00 04/22/18 15:59 Aspirin (ASA) 81 mg DAILY ORAL 04/22/18 09:00 05/16/18 08:59 04/21/18 10:10 Atorvastatin Calcium (Lipitor) 40 mg QHS ORAL 04/21/18 21:00 05/15/18 20:59 Aztreonam 1 gm/ Dextrose 55 ml @ 110 mls/hr Q8HR IVPB 04/21/18 14:30 04/28/18 14:29 04/21/18 15:52 Barium Sulfate (Readi-Cat 2) 450 ml NOW PRN ORAL Radiology Procedure 04/21/18 10:00 04/23/18 09:59 Barium Sulfate (Readi-Cat 2) 450 ml NOW PRN ORAL Radiology Procedure 04/21/18 10:45 04/23/18 10:33 Bisacodyl (Dulcolax) 10 mg DAILYPRN PRN RECTAL Constipation 04/21/18 10:00 05/21/18 09:59 Chlorhexidine Gluconate (Jaqui-Hex 2%) 1 applic DAILY@2000 TOPIC 04/21/18 20:00 05/21/18 19:59 Citalopram Hydrobromide (celeXA) 40 mg DAILY ORAL 04/22/18 09:00 05/16/18 08:59 04/21/18 10:09 Clindamycin HCl/ Dextrose 50 ml @ 100 mls/hr Q8HR@0700,1500,2300 IV 04/21/18 15:00 04/28/18 14:59 04/21/18 16:39 Clopidogrel Bisulfate (Plavix) 75 mg DAILY ORAL 04/22/18 09:00 05/16/18 08:59 04/21/18 10:09 Cyanocobalamin (Vitamin B-12) 2,500 mcg DAILY ORAL 04/22/18 09:00 05/16/18 08:59 Dextrose (Dextrose 50%) 25 ml STAT PRN IV Hypoglycemia 04/21/18 10:00 05/15/18 09:59 Dextrose (Dextrose 50%) 50 ml STAT PRN IV Hypoglycemia 04/21/18 10:00 05/15/18 09:59 Heparin Sodium/ Dextrose 500 ml @ 46.539 mls/ hr adjust per protocol IV 04/21/18 10:00 05/21/18 09:59 Heparin Sodium/ Sodium Chloride (Heparin 2000 units/Ns 1000ml premix) 2,000 unit ONCE PRN INJ picc line placement 04/21/18 16:30 04/22/18 16:29 Insulin Aspart (NovoLOG) BEFORE MEALS AND HS SUBQ 04/21/18 11:30 05/15/18 16:29 Insulin Aspart (NovoLOG) 2 units NOVOTIAC SUBQ 04/21/18 11:50 05/17/18 11:49 Insulin Detemir (Levemir) 20 units BEDTIME SUBQ 04/21/18 21:00 05/17/18 20:59 Iopamidol (Isovue-300 100ml) 100 ml NOW PRN INJ Radiology Procedure 04/21/18 10:00 04/23/18 09:59 Lactulose (Cephulac) 30 gm Q6H PRN ORAL Constipation 04/21/18 10:00 05/15/18 15:59 Lidocaine HCl (Xylocaine 1% 30ml) 30 ml ONCE PRN INJ picc line placement 04/21/18 16:30 04/23/18 16:29 Losartan Potassium (Cozaar) 25 mg DAILY ORAL 04/22/18 09:00 05/16/18 08:59 04/21/18 10:09 Metformin HCl (Glucophage) 500 mg TIAC ORAL 04/21/18 11:30 05/16/18 06:29 Morphine Sulfate (Morphine Sulfate) 2 mg Q3H PRN IVP Severe Pain (Pain Scale 7-10) 04/21/18 10:00 04/28/18 09:59 04/21/18 10:12 Ondansetron HCl (Zofran) 4 mg Q6H PRN IV Nausea & Vomiting 04/21/18 10:00 05/17/18 09:59 Oxybutynin Chloride (Ditropan) 10 mg DAILY ORAL 04/22/18 09:00 05/16/18 08:59 04/21/18 10:08 Sodium Chloride 1,000 ml @ 75 mls/hr [id number] IV 04/21/18 10:00 05/21/18 09:59 Sodium Phosphate (Fleet's Sodium Phosl Enema) 133 ml DAILY@2100 RECTAL 04/21/18 21:00 05/18/18 20:59 Sodium Phosphate (Fleet's Sodium Phosl Enema) 133 ml DAILYPRN PRN RECTAL Constipation 04/21/18 10:00 05/18/18 09:59 Assessment/Plan Problem List: (1) SBO (small bowel obstruction) ICD Codes: K56.609 - Unspecified intestinal obstruction, unspecified as to partial versus complete obstruction SNOMED: 509002541 (2) Peritonitis (acute) generalized Assessment & Plan: SBO with peritonitis leukocytosis exam with significant tenderness CT reviewed. patient very ill with multiple medical comorbidities. concerning exam. overall poor prognosis and guarded. given exam and findings urgent laparoscopy indicated and recommended. possible exploration, possible bowel resection. patient expressed understanding and consented to surgery. understands high morbidity and possible mortality given medical condition and history will remain intubated post op and go to ICU for care. npo iv fluids iv abx to or now consent ICD Codes: K65.0 - Generalized (acute) peritonitis SNOMED: 76253358 Status: deteriorating Shlomo Hollingsworth Apr 21, 2018 17:55
[2018-04-21] MEDS ORDERED: Clindamycin 600mg 50 ML IV SCH (18:00)
[2018-04-21] MEDS ORDERED: Bacitracin 50000 Units Vial ONE (18:11)
[2018-04-21] MEDS ORDERED: LR 1000ml ONE (18:30)
[2018-04-21] MEDS ORDERED: Zemuron 50mg/5ml Inj IV ONE (18:30)
[2018-04-21] MEDS ORDERED: Dyna-Hex 2% Top Sol 2oz TOPIC SCH (20:00)
[2018-04-21] MEDS ORDERED: Levophed 4mg/4mL Inj IV ONE (20:01)
--- NOTE | 2018-04-21 20:16 | Immediate Post-Op Evaluation ---
Immediate Post-Op Evalulation Immediate Post-Op Evalulation Procedure: Attempted Ex laparotomy Date of Evaluation: Apr 21, 2018 Time of Evaluation: 20:09 IV Fluids: 600 Blood Products: none Estimated Blood Loss: min Urinary Output: 100 Blood Pressure Systolic: 79 Blood Pressure Diastolic: 34 Pulse Rate: 92 Respiratory Rate: 20 O2 Sat by Pulse Oximetry: 93 Temperature (Fahrenheit): 97.2 Pain Score (1-10): 0 Nausea: No Vomiting: No Complications Massive regurgitation on intubation attempt possible aspiration, bradycardia with progress to asystole, code called, V fib after epi injection defibrillation x 2 ST to Sr R femoral central line placed by Dr. Nolasco . To ICU intubated with monitors on. Patient Status: no response, ventilated, none Hydration Status: adequate Dveyn Mendoza MD Apr 21, 2018 20:16
--- NOTE | 2018-04-21 20:25 | General Progress Note ---
Progress Note Progress Note Surgery: chronically ill patient recently admitted and treated for pneumonia developed sbo and peritonitis. initially made DNAR and even considerations for hospice but recently full code again. surgical urgency for sbo with peritonitis. risks , benefits, and alternatives to surgery discussed with patient and in detail. discussed high morbidity and mortality given medical condition. consented to surgery. taken to OR. soon after intubation patient had cardiovascular and respiratory compromise. ACLS initiated. Meds given and in V tach. shocked x2 and regained vitals. taken directly to ICU in critical condition. unfortunately too ill for surgery. Shlomo Hollingsworth Apr 21, 2018 20:25
--- NOTE | 2018-04-21 20:28 | Operative Note - PDOC ---
Operative Note Operative Note Date of Operation/Procedure: Apr 21, 2018 Pre-op Diagnosis: cardiovascular and respiratory compromise Procedure: right femoral central venous catheter insertion Post-op Diagnosis: same as pre-op Surgeon: carmen Specimen: none Complications: none Condition: unstable Estimated Blood Loss: minimal Drains: none Implant(s) used?: No Indications for Procedure 67M please see prior notes for details. Code blue in OR. needs central venous access for meds and resuscitation. Emergency right femoral TLC placed. Description of Procedure right groin prepped and draped emergently. finder needle used to cannulate right femoral vein based on anatomy. once vein cannulated wire passed and needle removed. small skin incision made. dilator used and triple lumen catheter placed over line without complication. all three ports aspirated and flushed. catheter sutured in place. dressings applied. ready for use. Shlomo Hollingsworth Apr 21, 2018 20:28
[2018-04-21] MEDS ORDERED: Levemir Flexpen SUBQ SCH (21:00)
[2018-04-21] MEDS ORDERED: Fleet's Enema 133ml RECTAL SCH (21:00)
[2018-04-21] MEDS ORDERED: Atorvastatin 20mg tab ORAL SCH (21:00)
[2018-04-21] MEDS ORDERED: LORazepam 20 MG in NS 90 ML IV SCH ×4 (21:04)
[2018-04-21] MEDS ORDERED: Sodium Bicarbonate 50ml Carp IV SCH (21:30)
--- NOTE | 2018-04-21 21:41 | Anethesia Preoperative Eval ---
Anesthesia Pre-op PMH/ROS General Date of Evaluation: Apr 21, 2018 Time of Evaluation: 18:18 Anesthesiologist: Kelly ASA Score: ASA 4 Mallampati Score Class I : Soft palate, uvula, fauces, pillars visible Class II: Soft palate, uvula, fauces visible Class III: Soft palate, base of uvula visible Class IV: Only hard plate visible Mallampati Classification: Class III Surgeon: Gaurav Diagnosis: Small bowel obstruction Surgical Procedure: Exploratory laparotomy Anesthesia History: none Social History: smoking - h/o Family History: no anesthesia problems Allergies: Coded Allergies: ADHESIVE TAPE (Verified Allergy, Unknown, 04/15/18) CEPHALEXIN (Verified Allergy, Unknown, 04/15/18) PENICILLINS (Verified Allergy, Unknown, 04/15/18) Uncoded Allergies: PLAS (Allergy, Unknown, 04/15/18) Past Medical History Cardiovascular: Reports: HTN; Denies: CAD, [place], valve dz, arrhythmia, other Pulmonary: Reports: asthma, COPD, MURALI; Denies: other Gastrointestinal/Genitourinary: Reports: GERD, CRI; Denies: ESRD, other Neurologic/Psychiatric: Reports: depression/anxiety; Denies: dementia, CVA, TIA, other Endocrine: Reports: DM, hypothyroidism; Denies: steroids, other HEENT: Denies: cataract (L), cataract (R), glaucoma, [place] (L), [place] (R), other Hematology/Immune: Reports: anemia; Denies: DVT, bleeding disorder, other Musculoskeletal/Integumentary: Reports: edema Other: obesity - morbid obesity s/p gastric bypass PMH Narrative: as above PSxH Narrative: see chart Anesthesia Pre-op Phys. Exam Physician Exam Last Vital Signs Date Time Temp Pulse Resp B/P (MAP) Pulse Ox O2 Delivery O2 Flow Rate FiO2 04/21/18 20:30 98.0 115 10 107/41 (63) 91 98.0 04/21/18 20:00 50 04/21/18 19:56 Mechanical Ventilator 04/21/18 08:30 2.0 Constitutional: other - significasnt dyspnea at rest Neurologic: CN 2-12 intact Cardiovascular: RRR, other - tachicardic, hypotensive Respiratory: other - diminished breath sounds bilaterally Gastrointestinal: other - severe abdominal dystention, tender on palpation Airway Exam Mallampati Score: Class III MO: limited Neck: short ROM: limited Teeth: missing Dentures: no upper, no lower Anesthesia Pre-op A/P Labs Hematology Test 04/21/18 16:30 White Blood Count 15.9 K/UL (4.8-10.8) H Red Blood Count 4.17 M/UL (4.70-6.10) L Hemoglobin 12.9 G/DL (14.2-18.0) L Hematocrit 38.8 % (42.0-52.0) L Mean Corpuscular Volume 93 FL (80-99) Mean Corpuscular Hemoglobin 31.0 PG (27.0-31.0) Mean Corpuscular Hemoglobin Concent 33.2 G/DL (32.0-36.0) Red Cell Distribution Width 12.7 % (11.6-14.8) Platelet Count 348 K/UL (150-450) Mean Platelet Volume 6.8 FL (6.5-10.1) Neutrophils (%) (Auto) % (45.0-75.0) Lymphocytes (%) (Auto) % (20.0-45.0) Monocytes (%) (Auto) % (1.0-10.0) Eosinophils (%) (Auto) % (0.0-3.0) Basophils (%) (Auto) % (0.0-2.0) Differential Total Cells Counted 100 Neutrophils % (Manual) 59 % (45-75) Lymphocytes % (Manual) 9 % (20-45) L Monocytes % (Manual) 7 % (1-10) Eosinophils % (Manual) 0 % (0-3) Basophils % (Manual) 0 % (0-2) Band Neutrophils 25 % (0-8) H Platelet Estimate Adequate Platelet Morphology Normal Red Blood Cell Morphology Normal Coagulation Test 04/21/18 16:30 Prothrombin Time 13.1 SEC (9.30-11.50) H Prothromb Time International Ratio 1.3 (0.9-1.1) H Activated Partial Thromboplast Time 30 SEC (23-33) Chemistry Test 04/21/18 10:00 04/21/18 16:30 Sodium Level 136 MMOL/L (136-145) 136 MMOL/L (136-145) Potassium Level 4.2 MMOL/L (3.5-5.1) 4.1 MMOL/L (3.5-5.1) Chloride Level 98 MMOL/L (98-107) 98 MMOL/L (98-107) Carbon Dioxide Level 22 MMOL/L (21-32) 25 MMOL/L (21-32) Anion Gap 17 mmol/L (5-15) H 13 mmol/L (5-15) Blood Urea Nitrogen 89 mg/dL (7-18) H 94 mg/dL (7-18) H Creatinine 2.9 MG/DL (0.55-1.30) H 3.4 MG/DL (0.55-1.30) H Estimat Glomerular Filtration Rate 21.9 mL/min (>60) 18.3 mL/min (>60) Glucose Level 196 MG/DL (74-106) H 99 MG/DL (74-106) Calcium Level 8.2 MG/DL (8.5-10.1) L 8.1 MG/DL (8.5-10.1) L Total Bilirubin 1.4 MG/DL (0.2-1.0) H 1.0 MG/DL (0.2-1.0) Direct Bilirubin 0.7 MG/DL (0.0-0.3) H Aspartate Amino Transf (AST/SGOT) 29 U/L (15-37) 35 U/L (15-37) Alanine Aminotransferase (ALT/SGPT) 20 U/L (12-78) 21 U/L (12-78) Alkaline Phosphatase 109 U/L (46-116) 86 U/L (46-116) Total Protein 7.1 G/DL (6.4-8.2) 6.6 G/DL (6.4-8.2) Albumin 2.2 G/DL (3.4-5.0) L 2.1 G/DL (3.4-5.0) L Globulin 4.9 g/dL 4.5 g/dL Albumin/Globulin Ratio 0.4 (1.0-2.7) L 0.5 (1.0-2.7) L Risk Assessment & Plan Assessment: ASA 4 E Plan: Ga with ETT rapid sequence induction, central line placement, ICU bed postoperatively, ventilatory support Status Change Before Surgery: No Pre-Antibiotics Drug: as scheduled Devyn Mendoza MD Apr 21, 2018 21:41
[2018-04-21] MEDS: D5NS 1,000 ML IV SCH (21:52)
[2018-04-22] VITALS (39 sets, daily range): BP systolic 61–124; BP diastolic 40–65
--- NOTE | 2018-04-22 01:47 | Consultation ---
DATE OF CONSULTATION: 04/21/2018 GASTROENTEROLOGY CONSULTATION CONSULTING PHYSICIAN: Kimberly Khan M.D. CHIEF COMPLAINT: I was asked to see this patient by Dr. Marcus Garcia for evaluation of abdominal pain. HISTORY OF PRESENT ILLNESS: The patient is a pleasant, unfortunate 67-year-old white male with a history of morbid obesity, who underwent a gastric bypass surgery, who is here for pneumonia. Overnight, the patient was noted to have more abdominal pain and distention and a CT scan was done showing bowel obstruction, probably at the level of the jejunojejunal anastomosis. The patient had his Liban-en-Y gastric bypass surgery in 2009 in [facility]. He does not recall having any history of cirrhosis, but some CT evidence of cirrhotic change was noted today. The patient was apparently 350 pounds preoperatively back then and now 380 pounds. He also has other comorbidities including multiple sclerosis and he is debilitated. Nonetheless, he has pain in his abdomen since last time, which is worsening. He has also had some degree of abdominal pain and nausea and vomiting for two days. The patient was admitted for pneumonia, but over the past 24 hours, he has been noticing worsening abdominal pain and a CT scan was done showing this bowel obstruction. This will be his first episode as he had no similar episodes in the past. The patient has COPD and is on a BiPAP mask. PAST MEDICAL HISTORY: History of COPD, previous history of smoking, multiple sclerosis, status post bariatric surgery for morbid obesity, history of depression, multiple falls, diabetes, morbid obesity, respiratory failure, status post Liban-en-Y gastric bypass surgery. ALLERGIES: Adhesive tape, penicillin, and cephalexin. FAMILY HISTORY: Noncontributory. SOCIAL HISTORY: The patient is . He does not smoke at this time. He does not drink excessively. REVIEW OF SYSTEMS: Otherwise negative. PHYSICAL EXAMINATION: GENERAL: Obese, pleasant white man, seen with his at bedside with the BiPAP mask on. HEENT: Normocephalic and atraumatic. Sclerae anicteric. NECK: Supple. CHEST: Reveals coarse breath sounds. CARDIOVASCULAR: Regular rate. ABDOMEN: Soft, but distended and diffusely tender to palpation with tenderness upon shaking of the bed. EXTREMITIES: Revealed trace edema. LABORATORY AND DIAGNOSTIC DATA: CT scan was noted. ASSESSMENT: This patient presents with what appears to be an acute bowel obstruction, possibly either at the jejunojejunal anastomosis versus an internal hernia. The abdominal exam is diffusely tender and concerning and he should be seen by surgical staff. We will need to evaluate him for surgical options. Nasogastric tube is often not used in these circumstances as the patient had a Liban-en-Y gastric bypass surgery, but can be considered if the patient is not a surgical candidate. He is obviously at risk for surgery given his multiple comorbidities including morbid obesity, multiple sclerosis, respiratory failure, COPD, and renal failure. His prognosis is therefore limited. RECOMMENDATIONS: 1. Keep the patient NPO. 2. IV fluids. 3. Follow laboratory parameters and exam. 4. Surgical consultation. 5. Broad-spectrum antibiotics. 6. Follow exam closely. Thank you for asking me to participate in the care of this patient. Kimberly Khan M.D. DR: RADHA JOB#: [id number] CC:
[2018-04-22] MEDS: Aztreonam Inj 1 GM in D5W 55 ML IVPB SCH (06:27)
[2018-04-22] MEDS: NovoLOG Insulin Flexpen SUBQ SCH ×4 (06:30→12:20)
[2018-04-22] MEDS: metFORMIN 500mg tab ORAL SCH (06:30)
[2018-04-22 06:42] LABS: HEMATOCRIT 36.8 % (42.0-52.0); MEAN CORPUSCULAR VOLUME 94 FL (80-99); PLATELET COUNT 402 K/UL (150-450); RED BLOOD COUNT 3.93 M/UL (4.70-6.10); RED CELL DISTRIBUTION WIDTH 13.1 % (11.6-14.8)
[2018-04-22 06:57] LABS: WHITE BLOOD COUNT 29.8 K/UL (4.8-10.8)
[2018-04-22] MEDS: Clindamycin 600mg 50 ML IV SCH (07:00)
[2018-04-22 07:11] LABS: ALANINE AMINOTRANSFERASE 36 U/L (12-78); ALBUMIN 1.7 G/DL (3.4-5.0); ALBUMIN/GLOBULIN RATIO 0.4 (1.0-2.7); ALKALINE PHOSPHATASE 80 U/L (46-116); ANION GAP 20 mmol/L (5-15); ASPARTATE AMINO TRANSFERASE 130 U/L (15-37); BILIRUBIN,TOTAL 1.4 MG/DL (0.2-1.0); BLOOD UREA NITROGEN 99 mg/dL (7-18); CALCIUM 7.1 MG/DL (8.5-10.1); CARBON DIOXIDE 17 MMOL/L (21-32); CHLORIDE 99 MMOL/L (98-107); CREATININE 4.5 MG/DL (0.55-1.30); POTASSIUM 5.4 MMOL/L (3.5-5.1); SODIUM 136 MMOL/L (136-145)
[2018-04-22 07:16] LABS: BILIRUBIN,DIRECT 0.9 MG/DL (0.0-0.3)
[2018-04-22] MEDS: D5NS 1,000 ML IV SCH (07:41)
[2018-04-22] MEDS ORDERED: DOPamine 400mg/250ml 250 ML IV SCH (08:00)
[2018-04-22] MEDS ORDERED: Vitamin B-12 500mcg tab ORAL SCH (09:00)
[2018-04-22] MEDS ORDERED: Losartan 25mg tab ORAL SCH (09:00)
[2018-04-22] MEDS ORDERED: Citalopram Hydrobromide 10mg Tab ORAL SCH (09:00)
[2018-04-22] MEDS ORDERED: Aspirin Baby 81mg ORAL SCH (09:00)
[2018-04-22] MEDS ORDERED: Oxybutynin 5mg tab ORAL SCH (09:00)
--- NOTE | 2018-04-22 09:28 | Pulmonology Progress Note ---
Assessment/Plan Assessment/Plan 1. Acute respiratory failure. 2. Pneumonia with sepsis. 3. COPD 4. Multiple sclerosis. 5. DNR status. 6. Diabetes. 7. Morbid obesity. 8. Marked leukopenia. 9. Chronic kidney disease stage 3. 10. Hyperproteinemia. 11. Probable diastolic heart failure. 12. acute abd, likely bowel infarct 13. Rapid A fib, ST 14. S/p arrest, septic shock seen yesterday afternoon before OR; acute abd s/p arrest in OR recovered rhythm but intubated, on multiple pressors for shock anuric renal failure, sepsis rapid A fib - now ST labs reviewed, pH 6.9 disc w at bedside DNR, comfort care understands terminal condition may dc life support when she agrees Subjective ROS Limited/Unobtainable: Yes Allergies: Coded Allergies: ADHESIVE TAPE (Verified Allergy, Unknown, 04/15/18) CEPHALEXIN (Verified Allergy, Unknown, 04/15/18) PENICILLINS (Verified Allergy, Unknown, 04/15/18) Uncoded Allergies: PLAS (Allergy, Unknown, 04/15/18) Objective Last 24 Hour Vital Signs Date Time Temp Pulse Resp B/P (MAP) Pulse Ox O2 Delivery O2 Flow Rate FiO2 04/22/18 08:49 113 36 80 04/22/18 08:00 65/35 04/22/18 07:30 103.0 90 24 61/41 (48) 95 103.0 04/22/18 07:00 103 35 78/49 (59) 94 04/22/18 06:30 106 36 87/48 (61) 94 04/22/18 06:30 108 36 80 04/22/18 06:28 92/52 04/22/18 06:00 103 35 92/52 (65) 94 04/22/18 06:00 92/52 04/22/18 05:30 106 35 91/54 (66) 94 04/22/18 05:12 105 35 80 04/22/18 05:02 101.4 107 35 92/62 (72) 96 101.4 04/22/18 05:00 91/54 04/22/18 04:30 101.4 106 33 97/52 (67) 93 101.4 04/22/18 04:00 105 04/22/18 04:00 105 33 100/51 (67) 93 04/22/18 04:00 80 8/22/18 04:00 100/51 04/22/18 03:30 103 32 96/58 (71) 91 04/22/18 03:13 104 31 80 04/22/18 03:00 104 29 102/46 (64) 04/22/18 02:45 104 28 99/42 (61) 90 04/22/18 02:15 112 24 110/55 (73) 91 04/22/18 02:00 106/50 04/22/18 02:00 109 24 100/54 (69) 90 04/22/18 01:45 120 24 106/50 (68) 93 04/22/18 01:30 115 24 101/51 (68) 92 04/22/18 01:30 106 24 70 04/22/18 01:15 113 24 111/56 (74) 93 04/22/18 01:00 100/52 04/22/18 01:00 114 23 104/61 (75) 93 04/22/18 00:45 112 24 105/55 (72) 94 04/22/18 00:30 114 24 99/43 (61) 94 04/22/18 00:15 107 24 108/50 (69) 95 04/22/18 00:00 115 04/22/18 00:00 98.8 109 24 108/50 (69) 95 98.8 04/22/18 00:00 108/52 04/22/18 00:00 104 24 96/50 (65) 95 04/22/18 00:00 70 04/21/18 23:30 103 24 70 04/21/18 23:30 109 24 108/65 (79) 95 04/21/18 23:00 105 24 98/52 (67) 97 04/21/18 23:00 98/52 04/21/18 22:30 103 24 95/43 (60) 97 04/21/18 22:14 24 Mechanical Ventilator 70 04/21/18 22:00 101 24 82/48 (59) 97 18 21:56 95/41 8 21:30 106 24 70 04/21/18 21:30 105 12 95/41 (59) 93 04/21/18 21:00 109 12 100/51 (67) 93 04/21/18 21:00 Mechanical Ventilator 04/21/18 20:30 98.0 115 10 107/41 (63) 91 98.0 04/21/18 20:16 61/34 04/21/18 20:16 207.0 92 20 93 04/21/18 20:00 113 04/21/18 20:00 98.0 115 10 61/35 (44) 91 98.0 04/21/18 20:00 87 10 50 04/21/18 20:00 50 04/21/18 19:56 Mechanical Ventilator 04/21/18 19:55 Mechanical Ventilator 04/21/18 16:00 98.0 76 28 144/94 (111) 91 98.0 04/21/18 12:33 53 34 93 Facial 45 04/21/18 12:00 97.7 87 26 97/57 (70) 90 97.7 04/21/18 11:26 110 04/21/18 10:42 98.4 04/21/18 10:40 74 35 95 Facial 45 04/21/18 10:09 112/48 04/21/18 09:37 60 34 90 Intake and Output 04/21/18 04/22/18 19:00 07:00 Intake Total 120 ml 1297.50 ml Output Total 180 ml Balance 120 ml 1117.50 ml Intake Oral 120 ml 0 ml IV Total 1297.50 ml Output Urine Total 180 ml Objective morbidly obese, intubated, vent, NGT HEENT: normocephalic Respiratory/Chest: lungs clear Cardiovascular: regular rhythm, tachycardia Abdomen: distended Laboratory Tests 04/21/18 10:00: Sodium Level 136, Potassium Level 4.2, Chloride Level 98, Carbon Dioxide Level 22, Anion Gap 17H, Blood Urea Nitrogen 89H, Creatinine 2.9H, Estimat Glomerular Filtration Rate 21.9, Glucose Level 196H, Calcium Level 8.2L, Total Bilirubin 1.4H, Direct Bilirubin 0.7H, Aspartate Amino Transf (AST/SGOT) 29, Alanine Aminotransferase (ALT/SGPT) 20, Alkaline Phosphatase 109, Total Protein 7.1, Albumin 2.2L, Globulin 4.9, Albumin/Globulin Ratio 0.4L 04/21/18 16:30: Sodium Level 136, Potassium Level 4.1, Chloride Level 98, Carbon Dioxide Level 25, Anion Gap 13, Blood Urea Nitrogen 94H, Creatinine 3.4H, Estimat Glomerular Filtration Rate 18.3, Glucose Level 99, Calcium Level 8.1L, Total Bilirubin 1.0 , Aspartate Amino Transf (AST/SGOT) 35, Alanine Aminotransferase (ALT/SGPT) 21, Alkaline Phosphatase 86, Total Protein 6.6, Albumin 2.1L, Globulin 4.5, Albumin/ Globulin Ratio 0.5L, White Blood Count 15.9H, Red Blood Count 4.17L, Hemoglobin 12.9L, Hematocrit 38.8L, Mean Corpuscular Volume 93, Mean Corpuscular Hemoglobin 31.0, Mean Corpuscular Hemoglobin Concent 33.2, Red Cell Distribution Width 12.7, Platelet Count 348, Mean Platelet Volume 6.8, Neutrophils (%) (Auto) , Lymphocytes (%) (Auto) , Monocytes (%) (Auto) , Eosinophils (%) (Auto) , Basophils (%) (Auto) , Differential Total Cells Counted 100, Neutrophils % (Manual) 59, Lymphocytes % (Manual) 9L, Monocytes % ( Manual) 7, Eosinophils % (Manual) 0, Basophils % (Manual) 0, Band Neutrophils 25H, Platelet Estimate Adequate, Platelet Morphology Normal, Red Blood Cell Morphology Normal, Prothrombin Time 13.1H, Prothromb Time International Ratio 1.3H, Activated Partial Thromboplast Time 30 04/21/18 20:09: Arterial Blood pH 6.981*L, Arterial Blood Partial Pressure CO2 72.5*H, Arterial Blood Partial Pressure O2 68.1L, Arterial Blood HCO3 16.7L, Arterial Blood Oxygen Saturation 82.2L, Arterial Blood Base Excess -15.5, Ezekiel Test Positive 04/22/18 05:52: Sodium Level 136, Potassium Level 5.4H, Chloride Level 99, Carbon Dioxide Level 17L, Anion Gap 20H, Blood Urea Nitrogen 99H, Creatinine 4.5H, Estimat Glomerular Filtration Rate 13.2, Glucose Level 211#H, Calcium Level 7.1L, Total Bilirubin 1.4H, Direct Bilirubin 0.9H, Aspartate Amino Transf (AST/SGOT) 130H, Alanine Aminotransferase (ALT/SGPT) 36, Alkaline Phosphatase 80, Total Protein 6.0L, Albumin 1.7L, Globulin 4.3, Albumin/Globulin Ratio 0.4L, White Blood Count 29.8#*H, Red Blood Count 3.93L, Hemoglobin 12.0L, Hematocrit 36.8L, Mean Corpuscular Volume 94, Mean Corpuscular Hemoglobin 30.5, Mean Corpuscular Hemoglobin Concent 32.6, Red Cell Distribution Width 13.1, Platelet Count 402, Mean Platelet Volume 7.0, Neutrophils (%) (Auto) , Lymphocytes (%) (Auto) , Monocytes (%) (Auto) , Eosinophils (%) (Auto) , Basophils (%) (Auto) , Differential Total Cells Counted 100, Neutrophils % (Manual) 77H, Lymphocytes % (Manual) 6L, Monocytes % (Manual) 6, Eosinophils % (Manual) 0, Basophils % ( Manual) 0, Band Neutrophils 11H, Platelet Estimate Adequate, Platelet Morphology Normal, Red Blood Cell Morphology Normal, Nucleated Red Blood Cells 1 , Hepatitis A IgM Antibody [Pending], Hepatitis B Surface Antigen [Pending], Hepatitis B Core IgM Antibody [Pending], Hepatitis C Antibody [Pending] Current Medications Medications (Trade) Dose Ordered Sig/Tessa Route PRN Reason Start Time Stop Time Status Last Admin Dose Admin Acetaminophen (Tylenol) 650 mg Q4H PRN ORAL Mild Pain/Temp > 100.5 04/21/18 10:00 05/15/18 17:59 Acetaminophen/ Hydrocodone Bitart ([place]kiff 10/325) 1 tab Q8H PRN ORAL Moderate Pain (Pain Scale 4-6) 04/21/18 10:00 04/22/18 15:59 Aspirin (ASA) 81 mg DAILY ORAL 04/22/18 09:00 05/16/18 08:59 04/21/18 10:10 Atorvastatin Calcium (Lipitor) 40 mg QHS ORAL 04/21/18 21:00 05/15/18 20:59 Aztreonam 1 gm/ Dextrose 55 ml @ 110 mls/hr Q8HR IVPB 04/21/18 14:30 04/28/18 14:29 04/22/18 06:27 Barium Sulfate (Readi-Cat 2) 450 ml NOW PRN ORAL Radiology Procedure 04/21/18 10:00 04/23/18 09:59 Barium Sulfate (Readi-Cat 2) 450 ml NOW PRN ORAL Radiology Procedure 04/21/18 10:45 04/23/18 10:33 Bisacodyl (Dulcolax) 10 mg DAILYPRN PRN RECTAL Constipation 04/21/18 10:00 05/21/18 09:59 Chlorhexidine Gluconate (Jaqui-Hex 2%) 1 applic DAILY@2000 TOPIC 04/21/18 20:00 05/21/18 19:59 04/21/18 20:19 Citalopram Hydrobromide (celeXA) 40 mg DAILY ORAL 04/22/18 09:00 05/16/18 08:59 04/21/18 10:09 Clindamycin HCl/ Dextrose 50 ml @ 100 mls/hr Q8HR@0700,1500,2300 IV 04/21/18 15:00 04/28/18 14:59 04/22/18 07:00 Clopidogrel Bisulfate (Plavix) 75 mg DAILY ORAL 04/22/18 09:00 05/16/18 08:59 04/21/18 10:09 Cyanocobalamin (Vitamin B-12) 2,500 mcg DAILY ORAL 04/22/18 09:00 05/16/18 08:59 Dextrose (Dextrose 50%) 25 ml STAT PRN IV Hypoglycemia 04/21/18 10:00 05/15/18 09:59 Dextrose (Dextrose 50%) 50 ml STAT PRN IV Hypoglycemia 04/21/18 10:00 05/15/18 09:59 Dextrose/Sodium Chloride 1,000 ml @ 100 mls/hr Q10H IV 04/21/18 21:30 05/21/18 21:29 04/22/18 07:41 Dopamine HCl/ Dextrose 250 ml @ 0 mls/hr Q24H IV 04/22/18 08:00 05/22/18 07:59 04/22/18 08:00 Heparin Sodium/ Dextrose 500 ml @ 46.539 mls/ hr adjust per protocol IV 04/21/18 10:00 05/21/18 09:59 Heparin Sodium/ Sodium Chloride (Heparin 2000 units/Ns 1000ml premix) 2,000 unit ONCE PRN INJ picc line placement 04/21/18 16:30 04/22/18 16:29 Insulin Aspart (NovoLOG) BEFORE MEALS AND HS SUBQ 04/21/18 11:30 05/15/18 16:29 Insulin Aspart (NovoLOG) 2 units NOVOTIAC SUBQ 04/21/18 11:50 05/17/18 11:49 Insulin Detemir (Levemir) 20 units BEDTIME SUBQ 04/21/18 21:00 05/17/18 20:59 Iopamidol (Isovue-300 100ml) 100 ml NOW PRN INJ Radiology Procedure 04/21/18 10:00 04/23/18 09:59 Lactulose (Cephulac) 30 gm Q6H PRN ORAL Constipation 04/21/18 10:00 05/15/18 15:59 Lidocaine HCl (Xylocaine 1% 30ml) 30 ml ONCE PRN INJ picc line placement 04/21/18 16:30 04/23/18 16:29 Lorazepam 20 mg/ Sodium Chloride 100 ml @ 0 mls/hr Q0M IV 04/21/18 21:04 04/28/18 21:03 Losartan Potassium (Cozaar) 25 mg DAILY ORAL 04/22/18 09:00 05/16/18 08:59 04/21/18 10:09 Metformin HCl (Glucophage) 500 mg TIAC ORAL 04/21/18 11:30 05/16/18 06:29 Morphine Sulfate (Morphine Sulfate) 2 mg Q3H PRN IVP Severe Pain (Pain Scale 7-10) 04/21/18 10:00 04/28/18 09:59 04/21/18 10:12 Norepinephrine Bitartrate 8 mg/ Dextrose 250 ml @ 0 mls/hr Q24H IV 04/21/18 20:15 05/21/18 20:14 04/22/18 06:28 Ondansetron HCl (Zofran) 4 mg Q6H PRN IV Nausea & Vomiting 04/21/18 10:00 05/17/18 09:59 Oxybutynin Chloride (Ditropan) 10 mg DAILY ORAL 04/22/18 09:00 05/16/18 08:59 04/21/18 10:08 Sodium Phosphate (Fleet's Sodium Phosl Enema) 133 ml DAILY@2100 RECTAL 04/21/18 21:00 05/18/18 20:59 Sodium Phosphate (Fleet's Sodium Phosl Enema) 133 ml DAILYPRN PRN RECTAL Constipation 04/21/18 10:00 05/18/18 09:59 Marcus Garcia MD Apr 22, 2018 09:28
--- NOTE | 2018-04-22 11:40 | Diagnostic Imaging Report ---
Indication: Post intubation Technique: One view of the chest Comparison: 12 hours earlier Findings: Interim endotracheal intubation, endotracheal tube tip approximately 3 cm above the katia. Interim placement of an enteric tube, tip coiled in the gastric fundus in good position. There is bilateral diffuse interstitial and airspace disease, markedly worsened since the prior exam. There is suggestion of a moderate to large left and small right pleural effusion, also increased. The heart is enlarged. Unusual vertically oriented retrocardiac lucency, of uncertain significance is noted. Impression: Satisfactory endotracheal and nasogastric intubation Worsening bilateral interstitial and alveolar infiltrates versus edema. Worsening bilateral pleural effusions This agrees with the preliminary interpretation provided overnight by [facility] teleradiology service.
--- NOTE | 2018-04-22 12:11 | 48 Hour Post Anesthesia Eval ---
Post Anesthesia Evaluation Procedure: Attempted Ex laparotomy Date of Evaluation: Apr 22, 2018 Time of Evaluation: 12:06 Blood Pressure Systolic: 104 0: 42 Pulse Rate: 104 Respiratory Rate: 24 Temperature (Fahrenheit): 97.0 O2 Sat by Pulse Oximetry: 93 Airway: other - Intubated on vent Nausea: No Vomiting: No Pain Intensity: 1 Hydration Status: adequate Cardiopulmonary Status: hypotensive on 2 pressors drip. Mental Status/LOC: other - sedated unresponsive Follow-up Care/Observations: n/a Post-Anesthesia Complications: s/p cardiac arrest Follow-up care needed: N/A Devyn Mendoza MD Apr 22, 2018 12:11
--- NOTE | 2018-04-22 12:33 | General Progress Note ---
Progress Note Progress Note Surgery: intubated, on pressors, critically ill in ICU. unfortunately not improving and condition deteriorating. labs reviewed. vitals reviewed, meds/orders reviewed. non responsive on exam. abd soft, distended, cannot assess tenderness, cxr noted. critically ill on life support in ICU s/p arrest. prognosis poor. family aware. comfort measures as family desires. thank you Shlomo Hollingsworth Apr 22, 2018 12:33
[2018-04-22] MEDS: Morphine Sulfate 2mg/ml Inj(IV/IM USE ONLY) IVP PRN (14:45)
--- NOTE | 2018-04-22 15:48 | General Progress Note ---
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 high dose pressors coming in to change status to comfort measures subsequently received message that patient this afternoon Objective Last 24 Hour Vital Signs Date Time Temp Pulse Resp B/P (MAP) Pulse Ox O2 Delivery O2 Flow Rate FiO2 04/22/18 14:30 92 31 113/52 (72) 92 04/22/18 14:00 116 38 109/52 (71) 92 04/22/18 13:30 99.9 115 38 103/52 (69) 98 99.9 04/22/18 13:19 115 39 80 04/22/18 13:00 116 38 115/59 (77) 98 04/22/18 12:30 85 12 115/56 (75) 98 04/22/18 12:11 206.6 104 24 93 04/22/18 12:00 80 04/22/18 12:00 Mechanical Ventilator 04/22/18 12:00 85 13 120/50 (73) 97 04/22/18 11:38 105/51 04/22/18 11:30 108.0 87 19 124/53 (76) 92 108.0 04/22/18 11:00 108 39 118/56 (76) 92 04/22/18 10:52 112 39 80 04/22/18 10:30 110 36 122/55 (77) 94 04/22/18 10:00 109 36 97/61 (73) 94 04/22/18 09:30 110 36 118/52 (74) 94 04/22/18 09:15 111 36 118/63 (81) 94 04/22/18 09:00 111 36 106/55 (72) 93 04/22/18 08:49 113 36 80 04/22/18 08:45 112 36 113/53 (73) 93 04/22/18 08:30 111 36 108/53 (71) 92 04/22/18 08:15 111 24 113/65 (81) 93 04/22/18 08:00 65/35 04/22/18 08:00 80 04/22/18 08:00 Mechanical Ventilator 04/22/18 08:00 104 24 69/40 (50) 93 04/22/18 07:30 103.0 90 24 61/41 (48) 95 103.0 04/22/18 07:00 103 35 78/49 (59) 94 04/22/18 06:30 106 36 87/48 (61) 94 04/22/18 06:30 108 36 80 04/22/18 06:28 92/52 04/22/18 06:00 103 35 92/52 (65) 94 04/22/18 06:00 92/52 04/22/18 05:30 106 35 91/54 (66) 94 04/22/18 05:12 105 35 80 04/22/18 05:02 101.4 107 35 92/62 (72) 96 101.4 04/22/18 05:00 91/54 04/22/18 04:30 101.4 106 33 97/52 (67) 93 101.4 04/22/18 04:00 105 04/22/18 04:00 105 33 100/51 (67) 93 04/22/18 04:00 80 04/22/18 04:00 100/51 04/22/18 03:30 103 32 96/58 (71) 91 04/22/18 03:13 104 31 80 04/22/18 03:00 104 29 102/46 (64) 04/22/18 02:45 104 28 99/42 (61) 90 04/22/18 02:15 112 24 110/55 (73) 91 04/22/18 02:00 106/50 04/22/18 02:00 109 24 100/54 (69) 90 04/22/18 01:45 120 24 106/50 (68) 93 04/22/18 01:30 115 24 101/51 (68) 92 04/22/18 01:30 106 24 70 04/22/18 01:15 113 24 111/56 (74) 93 8/22/18 01:00 100/52 04/22/18 01:00 114 23 104/61 (75) 93 04/22/18 00:45 112 24 105/55 (72) 94 04/22/18 00:30 114 24 99/43 (61) 94 18 00:15 107 24 108/50 (69) 95 04/22/18 00:00 115 04/22/18 00:00 98.8 109 24 108/50 (69) 95 98.8 04/22/18 00:00 108/52 04/22/18 00:00 104 24 96/50 (65) 95 04/22/18 00:00 70 04/21/18 23:30 103 24 70 04/21/18 23:30 109 24 108/65 (79) 95 04/21/18 23:00 105 24 98/52 (67) 97 04/21/18 23:00 98/52 04/21/18 22:30 103 24 95/43 (60) 97 04/21/18 22:14 24 Mechanical Ventilator 70 04/21/18 22:00 101 24 82/48 (59) 97 04/21/18 21:56 95/41 04/21/18 21:30 106 24 70 04/21/18 21:30 105 12 95/41 (59) 93 04/21/18 21:00 109 12 100/51 (67) 93 04/21/18 21:00 Mechanical Ventilator 04/21/18 20:30 98.0 115 10 107/41 (63) 91 98.0 04/21/18 20:16 61/34 04/21/18 20:16 207.0 92 20 93 04/21/18 20:00 113 04/21/18 20:00 98.0 115 10 61/35 (44) 91 98.0 04/21/18 20:00 87 10 50 04/21/18 20:00 50 04/21/18 19:56 Mechanical Ventilator 04/21/18 19:55 Mechanical Ventilator 04/21/18 16:00 98.0 76 28 144/94 (111) 91 98.0 Intake and Output 04/21/18 04/22/18 19:00 07:00 Intake Total 120 ml 1297.50 ml Output Total 180 ml Balance 120 ml 1117.50 ml Intake Oral 120 ml 0 ml IV Total 1297.50 ml Output Urine Total 180 ml Laboratory Tests 04/21/18 16:30: White Blood Count 15.9H, Red Blood Count 4.17L, Hemoglobin 12.9L, Hematocrit 38.8L, Mean Corpuscular Volume 93, Mean Corpuscular Hemoglobin 31.0, Mean Corpuscular Hemoglobin Concent 33.2, Red Cell Distribution Width 12.7, Platelet Count 348, Mean Platelet Volume 6.8, Neutrophils (%) (Auto) , Lymphocytes (%) ( Auto) , Monocytes (%) (Auto) , Eosinophils (%) (Auto) , Basophils (%) (Auto) , Differential Total Cells Counted 100, Neutrophils % (Manual) 59, Lymphocytes % ( Manual) 9L, Monocytes % (Manual) 7, Eosinophils % (Manual) 0, Basophils % ( Manual) 0, Band Neutrophils 25H, Platelet Estimate Adequate, Platelet Morphology Normal, Red Blood Cell Morphology Normal, Prothrombin Time 13.1H, Prothromb Time International Ratio 1.3H, Activated Partial Thromboplast Time 30 , Sodium Level 136, Potassium Level 4.1, Chloride Level 98, Carbon Dioxide Level 25, Anion Gap 13, Blood Urea Nitrogen 94H, Creatinine 3.4H, Estimat Glomerular Filtration Rate 18.3, Glucose Level 99, Calcium Level 8.1L, Total Bilirubin 1.0, Aspartate Amino Transf (AST/SGOT) 35, Alanine Aminotransferase ( ALT/SGPT) 21, Alkaline Phosphatase 86, Total Protein 6.6, Albumin 2.1L, Globulin 4.5, Albumin/Globulin Ratio 0.5L 04/21/18 20:09: Arterial Blood pH 6.981*L, Arterial Blood Partial Pressure CO2 72.5*H, Arterial Blood Partial Pressure O2 68.1L, Arterial Blood HCO3 16.7L, Arterial Blood Oxygen Saturation 82.2L, Arterial Blood Base Excess -15.5, Ezekiel Test Positive 04/22/18 05:52: White Blood Count 29.8#*H, Red Blood Count 3.93L, Hemoglobin 12.0L, Hematocrit 36.8L, Mean Corpuscular Volume 94, Mean Corpuscular Hemoglobin 30.5, Mean Corpuscular Hemoglobin Concent 32.6, Red Cell Distribution Width 13.1, Platelet Count 402, Mean Platelet Volume 7.0, Neutrophils (%) (Auto) , Lymphocytes (%) ( Auto) , Monocytes (%) (Auto) , Eosinophils (%) (Auto) , Basophils (%) (Auto) , Differential Total Cells Counted 100, Neutrophils % (Manual) 77H, Lymphocytes % (Manual) 6L, Monocytes % (Manual) 6, Eosinophils % (Manual) 0, Basophils % ( Manual) 0, Band Neutrophils 11H, Platelet Estimate Adequate, Platelet Morphology Normal, Red Blood Cell Morphology Normal, Sodium Level 136, Potassium Level 5.4H, Chloride Level 99, Carbon Dioxide Level 17L, Anion Gap 20H , Blood Urea Nitrogen 99H, Creatinine 4.5H, Estimat Glomerular Filtration Rate 13.2, Glucose Level 211#H, Calcium Level 7.1L, Total Bilirubin 1.4H, Aspartate Amino Transf (AST/SGOT) 130H, Alanine Aminotransferase (ALT/SGPT) 36, Alkaline Phosphatase 80, Total Protein 6.0L, Albumin 1.7L, Globulin 4.3, Albumin/ Globulin Ratio 0.4L, Nucleated Red Blood Cells 1, Direct Bilirubin 0.9H, Hepatitis A IgM Antibody [Pending], Hepatitis B Surface Antigen [Pending], Hepatitis B Core IgM Antibody [Pending], Hepatitis C Antibody [Pending] Height (Feet): 5 Height (Inches): 8.00 Weight (Pounds): 279 Objective Obese debilitated WM (+) NGT and ETT supple coarse BS RR soft obese distended abd (+) edema obtunded Kimberly Khan MD Apr 22, 2018 15:48
[2018-04-22] MEDS ORDERED: NS 275ml ONE (17:14)
[2018-04-22] MEDS ORDERED: D5NS 1000ml IV ONE (17:14)
--- NOTE | 2018-04-22 17:57 | Cardiology Report ---
APPROVED REPORT EKG Measurement Heart [id number] Atrial flutter with variable AV block Left anterior fascicular block Possible Lateral infarct, age undetermined Abnormal ECG
--- NOTE | 2018-04-23 15:00 | Discharge Summary ---
Discharge Summary Discharge Summary _ DATE OF ADMISSION: 04/15/2018 DATE OF DISCHARGE: 04/25/2018 BRIEF SUMMARY: Patient is an unfortunate 67-year-old male, jail resident, who was brought in by paramedics due to shortness of breath. The patient had been short of breath and had been coughing. He has history of COPD, multiple sclerosis, depression, diabetes, morbid obesity with bariatric surgery and multiple falls. On evaluation at ED, patient was in respiratory distress. He was noted to be febrile temperature of 101.9. Blood work showed leukopenia WBC was 2.4. Lactic acid 2.2. BNP 965, BUN 25, creatinine 1.4. Urinalysis with 2-4 WBC, 0- 2 RBC, 1+ leukocyte esterase and negative nitrite. He was placed on BiPAP. He was started on IV Levaquin. Chest x-ray showed cardiomegaly with pulmonary venous congestion and airspace edema with left basal pleural fluid and/or infiltrates. He was then admitted for acute respiratory failure with pneumonia and sepsis. Infectious disease specialist was consulted. He was given vancomycin, Levaquin and Flagyl. He was eventually taken off BiPAP and was placed on nasal cannula. Initially wanted hospice, however, decided to continue with aggressive treatment. He was continued on levofloxacin and Flagyl. He had episodes of nausea and was given Zofran. He develop rapid A. fib he was transferred to telemetry. He also had episodes of hypoxemia and was placed back on BiPAP. Antibiotic was changed to clindamycin and aztreonam secondary to A. fib past levofloxacin is a proarrhythmic drug. He complained of acute abdominal pain and discomfort. CT scan showed bowel obstruction at the level of jejuno jejunal anastomosis. Patient had prior Liban- en-Y gastric bypass surgery in 2009. He was placed on nothing by mouth and underwent surgical evaluation. Patient is ill with multiple medical comorbidities and concerning abdominal exam. Urgent laparoscopy was indicated and recommended. On 04/21/2018, LUIS ROSA was called. A right femoral central venous catheter was inserted. He was intubated. He recovered and was admitted to ICU on multiple pressors. He eventually became anuric and developed renal failure. Per discussion with patient's , family decided to place patient on comfort measures. Patient eventually . FINAL DIAGNOSES: Status post cardiorespiratory arrest Septic shock Acute respiratory failure Acute abdomen, likely bowel infarct Acute on chronic renal failure Pneumonia with sepsis COPD Multiple sclerosis Morbid obesity Diabetes mellitus Chronic kidney disease stage III Hyperproteinemia Probable diastolic heart failure Terminal care/palliative care/comfort care DISPOSITION: Patient . I have been assigned to dictate discharge summary on this account, and I was not involved in the patient's management. Mahogany Cooper NP Apr 23, 2018 15:00
== END 2018-04-22 17:15 | disposition expired | DRG 871 ==
LOC: EDBD 06:48 → EMR 07:15 → 4E 11:29 → EDBEDREQ 13:21 → 4W 04-16 19:59 → 2E 04-21 08:33 → ICU 04-21 19:35
PROC: 0BH17EZ Insertion of Endotracheal Airway into Trachea, Via Natural or Artificial Opening (ICD-10-PCS; principal; 2018-04-21)
PROC: 5A1935Z Respiratory Ventilation, Less than 24 Consecutive Hours (ICD-10-PCS; principal; 2018-04-21)
PROC: 06HM33Z Insertion of Infusion Device into Right Femoral Vein, Percutaneous Approach (ICD-10-PCS; principal; 2018-04-21)
DX: A41.9 Sepsis, unspecified organism (principal); J18.9 Pneumonia, unspecified organism; J96.01 Acute respiratory failure with hypoxia; R65.21 Severe sepsis with septic shock; K55.029 Acute infarction of small intestine, extent unspecified; K65.9 Peritonitis, unspecified; N17.9 Acute kidney failure, unspecified; J44.0 Chronic obstructive pulmonary disease with (acute) lower respiratory infection; Z68.41 Body mass index [BMI] 40.0-44.9, adult; I13.0 Hypertensive heart and chronic kidney disease with heart failure and stage 1 through stage 4 chronic kidney disease, or unspecified chronic kidney disease; I50.32 Chronic diastolic (congestive) heart failure; K56.699 Other intestinal obstruction unspecified as to partial versus complete obstruction; G35 Multiple sclerosis; Z98.84 Bariatric surgery status; F32.9 Major depressive disorder, single episode, unspecified; E11.42 Type 2 diabetes mellitus with diabetic polyneuropathy; E66.01 Morbid (severe) obesity due to excess calories; Z66 Do not resuscitate; E11.22 Type 2 diabetes mellitus with diabetic chronic kidney disease; N18.3 Chronic kidney disease, stage 3 (moderate); G47.30 Sleep apnea, unspecified; Z51.5 Encounter for palliative care; I48.91 Unspecified atrial fibrillation; I46.9 Cardiac arrest, cause unspecified
CPT/HCPCS: 36415; 36600; 71045; 71046; 74018; 74176; 80053; 80061; 80202; 81003; 82164; 82248; 82803; 82962; 83036; 83605; 83880; 84153; 84165; 85007; 85025; 85610; 85730; 86705; 86709; 86738; 86803; 86850; 86900; 86901; 87040; 87070; 87081; 87086; 87205; 87340; 93005; 93306; 94002; 94003; 94640; 94660; 94664; 94760; J1815; J2405; J7620; S0077; S5561